=== PATIENT | male | born 1945 | race Caucasian/White ===

== ENCOUNTER 2019-03-02 02:31 | Emergency (ER) | payer MEDICARE, SELFPAY ==
[2019-03-02 02:24] VITALS: BP 130/62; PULSE 95; RESP 18; TEMP 36.9; O2SAT 92; BMI 37.5
--- NOTE | 2019-03-02 02:37 | ED_ITS ---
Entered by Kenyetta Sarmiento, acting as scribe for HPI - Fall General: Chief Complaint: Fall Stated Complaint: Fall - back pain Time Seen by Provider: 03/02/19 02:36 Source: patient Mode of arrival: EMS History of Present Illness: HPI Narrative: 73 yo m came to the er by ems fro fall and back pain. 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 Pt states that he waited 4 hours to call ems for help. Pt states that his legs just came out from underneath him. Pt states that he did not have any loc. MD complaint: fall Onset (ago): hour(s) (4 hours ago) Fall from: standing Fall witnessed: no Place fall occurred: home Loss of consciousness: None Symptoms prior to fall: none Severity: mild Associated symptoms-after fall: Reports no associated symptoms; Denies abdominal pain, chest pain, headache(s) or neck pain Review of Systems General: Reports: 10 or more systems reviewed and unremarkable except in HPI and below Const: Denies: fever Eyes: Denies: change in vision ENMT: Denies: throat pain Card: Denies: chest pain Resp: Denies: shortness of breath GI: Denies: abdominal pain : Denies: flank pain Musc: Denies: neck pain Skin/Breast: Denies: rash Neuro: Denies: headache Psych: Denies: anxiety Endo: Denies: excessive urination Mauri/Lymph: Denies: easy bruising All/Imm: Denies: hives PFSH ED PFSH: Statuses (acute, chronic, etc) shown below reflect problem list status as previously entered and may not be historically accurate Social History Smoking and tobacco status: never smoked Physical Exam Const: COMMON NORMALS: no apparent distress GENERAL APPEARANCE: cooperative and comfortable Eye: COMMON NORMALS: PERRL PUPIL: Yes PERRL Neck/C-Spine: COMMON NORMALS: full ROM Chest: COMMONS NORMALS: inspection of chest normal Resp: COMMON NORMALS: normal respiratory effort Cardio: COMMON NORMALS: regular rhythm RHYTHM: regular rhythm GI: COMMON NORMALS: normal to inspection, nondistended, normoactive bowel sounds : COMMON NORMALS: Yes no CVA tenderness BLADDER/KIDNEY EXAM: Yes no CVA tenderness Back/Pelvis: COMMON NORMALS: no CVA tenderness LUMBAR SPINE/LOWER BACK: Yes pain with ROM, Yes lumbar spinal tenderness Lumbar spinal tenderness location: L5, Yes paraspinal muscle spasm and Yes straight leg raise negative bilaterally Extremity: COMMON NORMALS: normal to inspection Psych: COMMON NORMALS: mental status grossly normal Skin: COMMON NORMALS: no rashes or lesions noted GENERAL SKIN EXAM: no rashes or lesions noted Course Vital Signs: Vital signs: Vital Signs Temperature 98.4 F 03/02/19 02:24 Pulse Rate 97 03/02/19 08:00 Respiratory Rate 20 H 03/02/19 07:58 Blood Pressure 118/74 03/02/19 08:00 Pulse Oximetry 94 03/02/19 08:00 - Fall Lab Data: Labs: Lab Results 03/02/19 03/02/19 Range/Units 02:57 02:57 WBC 12.9 H (4.0-10.0) 10^3/ uL RBC 5.51 H (4.1-5.3) 10^6/u L Hgb 15.6 (11.7-16.6) g/dL Hct 49.6 (42.0-52.0) % MCV 90.0 (80-94) fL MCH 28.3 (28.0-34.0) pg MCHC 31.5 (30.0-36.0) g/dL RDW 13.8 (12.1-15.1) % Plt Count 269 (130-400) 10^3/c mm MPV 9.9 (7.4-10.4) fL Neut % (Auto) 86.8 % Lymph % (Auto) 5.1 % [place] % (Auto) 7.5 % Eos % (Auto) 0.0 % Baso % (Auto) 0.2 % Neut # (Auto) 11.2 H (1.8-7.7) 10^3/u L Lymph # (Auto) 0.7 L (0.8-4.8) 10^3/u L [place] # (Auto) 1.0 H (0.2-0.9) 10^3/u L Eos # (Auto) 0.0 (0.0-0.8) 10^3/u L Baso # (Auto) 0.0 (0.0-0.1) 10^3/u L Nucleated RBC % (a uto) 0 % Nucleated RBCs # 0.0 /100WBC Sodium 132 L (136-145) mmol/L Potassium 4.0 (3.5-5.1) mmol/L Chloride 96 L (98-107) mmol/L Carbon Dioxide 21 L (22-29) mmol/L Anion Gap 19.0 (5-19) BUN 15 (8-23) mg/dL Creatinine 1.2 (0.7-1.2) mg/dL Glucose 412 H (74-106) mg/dL Calcium 10.7 H (8.8-10.2) mg/Dl Total Bilirubin 1.2 (0.15-1.2) mg/dL AST 50 H (0-40) U/L ALT 26 (0-41) U/L Alkaline Phosphata se 155 H (40-130) IU/L Total Protein 8.3 (6.6-8.7) g/dL Albumin 3.7 (3.5-5.2) g/dL Globulin 4.6 (1.3-4.6) g/dL Discharge Plan Discharge Patient Disposition: Home, Self-Care Clinical Impression: Fall as cause of accidental injury at home as place of occurrence, Spondyloarthropathy Condition: Stable Prescriptions: [place] 5-325 mg tablet 1 tab PO Q6H Qty: 12 RF: 0 Referrals: Enzo Grover DO [Primary Care Provider] - Discharge Diet: Usual diet Discharge Activity: Use walker/crutches as instructed Patient Instructions: Lumbar Radiculopathy (ED), Degenerative Disc Disease (ED) Activity Restrictions/Additional Instructions: Return for worsening symptoms despite treatment Discharge Date/Time: 03/02/19 09:15 Coding Level of Care Code ED Horologist for Chg Fwd Exam Problem Focused The documentation recorded by the Torsten garcia Stephanie Lyn, accurately reflects the service I personally performed and the decisions made by Kg fleming Jeremy John, DO Mar 02, 2019 02:31
--- NOTE | 2019-03-02 02:49 | CTR_ITS ---
PROCEDURE INFORMATION: Exam: CT Lumbar Spine Without Contrast Exam date and time: 03/02/2019 3:07 AM Age: 73 years old Clinical indication: Pain and injury or trauma; Fall; Initial encounter; Blunt trauma (contusions or hematomas); Low back pain TECHNIQUE: Imaging protocol: Computed tomography images of the lumbar spine without contrast. Total DLP: 2784.6 mGy-cm Radiation optimization: All CT scans at this facility use at least one of these dose optimization techniques: automated exposure control; mA and/or kV adjustment per patient size (includes targeted exams where dose is matched to clinical indication); or iterative reconstruction. COMPARISON: CR Lumbar Spine 2-3 views* [id number] 2017-04-06 15:50 FINDINGS: Vertebrae: Minimal levoconvex lumbar curvature. Minimal L4-5 anterolisthesis. Minimal L5-S1 retrolisthesis. Normal lumbar lordosis and vertebral body heights. Discs/Spinal canal/Neural foramina: Moderate L4-L5 facet arthropathy. Mild diffuse degenerative disc space loss with small disc bulge/protrusions causing up to mild foraminal and spinal stenosis greatest at L3-S1. Soft tissues: Unremarkable. CT/CT lumbar spine wo con* [id number] IMPRESSION: No acute findings. Radiation Dose CTDIVOL = (mGy): DLP = 2784.6 (mGy-cm)
[2019-03-02 03:07] LABS: Basophils % 0.2 %; Hematocrit 49.6 % (42.0-52.0); Hemoglobin 15.6 g/dL (11.7-16.6); Lymphocytes # 0.7 10^3/uL (0.8-4.8); Lymphocytes % 5.1 %; Mean Corpuscular HGB Conc 31.5 g/dL (30.0-36.0); Mean Corpuscular Hemoglobin 28.3 pg (28.0-34.0); Mean Platelet Volume 9.9 fL (7.4-10.4); Monocytes % 7.5 %; Neutrophils # 11.2 10^3/uL (1.8-7.7); Neutrophils % 86.8 %; Nucleated Red Blood Cells % 0 %; Platelet Count 269 10^3/cmm (130-400); Red Blood Count 5.51 10^6/uL (4.1-5.3); Red Cell Distribution Width 13.8 % (12.1-15.1); White Blood Count 12.9 10^3/uL (4.0-10.0)
[2019-03-02 03:15] LABS: Alanine Aminotransferase 26 U/L (0-41); Albumin Level 3.7 g/dL (3.5-5.2); Alkaline Phosphatase 155 IU/L (40-130); Blood Urea Nitrogen 15 mg/dL (8-23); Calcium 10.7 mg/Dl (8.8-10.2); Carbon Dioxide 21 mmol/L (22-29); Chloride 96 mmol/L (98-107); Globulin 4.6 g/dL (1.3-4.6); Glucose 412 mg/dL (74-106); Sodium 132 mmol/L (136-145); Total Bilirubin 1.2 mg/dL (0.15-1.2); Total Protein 8.3 g/dL (6.6-8.7)
[2019-03-02 03:18] LABS: Aspartate Amino Transferase 50 U/L (0-40)
[2019-03-02] MEDS: sodium chloride 0.9% 1,000 ML 999 ML IV (04:04)
[2019-03-02] MEDS: ondansetron 2 mg/ML SDV 2 mL 4 MG IVP (04:05)
[2019-03-02 04:06] VITALS: RESP 18; O2SAT 93
[2019-03-02] MEDS: morphine 4 mg/mL SDV 1 mL IV (04:06)
--- NOTE | 2019-03-02 06:02 | PC.NURSE ---
ambulation trial done per verbal order by ED physician. patient attempted to get out of bed but complained of back pain and is unable to get up. ed physician notified of attempt.
[2019-03-02 06:07] VITALS: RESP 18; O2SAT 95
[2019-03-02] MEDS: HYDROmorphone 1 mg/mL INJ 1 mL IVP (06:07)
--- NOTE | 2019-03-02 07:14 | PC.NURSE ---
report received from MELONIE Aranda
[2019-03-02 07:58] VITALS: PULSE 90; RESP 20; O2SAT 94
[2019-03-02 08:00] VITALS: BP 118/74; PULSE 97; O2SAT 94
--- NOTE | 2019-03-02 08:00 | PC.NURSE ---
pt up ambulating in [place] for road test. pt tolerated activity well
--- NOTE | 2019-03-02 10:09 | W.ED.FALL ---
HPI - Fall General: Chief Complaint: Fall Stated Complaint: Fall - back pain Time Seen by Provider: 03/02/19 02:36 Source: patient Mode of arrival: EMS History of Present Illness: Place fall occurred: home PFSH ED PFSH: Statuses (acute, chronic, etc) shown below reflect problem list status as previously entered and may not be historically accurate Social History Smoking and tobacco status: never smoked Course Vital Signs: Vital signs: Vital Signs Temperature 98.4 F 03/02/19 02:24 Pulse Rate 97 03/02/19 08:00 Respiratory Rate 20 H 03/02/19 07:58 Blood Pressure 118/74 03/02/19 08:00 Pulse Oximetry 94 03/02/19 08:00 MDM - Fall MDM Narrative: Medical decision making narrative: Dr. Saul left without signing his prescription for the patient. I signed a prescription with Dr. Saul's name eliminated with mine added but the local pharmacy would not take this prescription. I have written a new prescription for [place] 5/325, #20, 1 p.o. every 4-6 hours as needed for pain. I did briefly see and examine the patient while he was here in the ER prior to discharge and he was stable for discharge. His physical exam was unremarkable and the same as noted by Dr. Saul. He was stable on his walker with no sign of impairment. This addendum is for clarification with his [place] prescription. Lab Data: Labs: Lab Results 03/02/19 03/02/19 Range/Units 02:57 02:57 WBC 12.9 H (4.0-10.0) 10^3/ uL RBC 5.51 H (4.1-5.3) 10^6/u L Hgb 15.6 (11.7-16.6) g/dL Hct 49.6 (42.0-52.0) % MCV 90.0 (80-94) fL MCH 28.3 (28.0-34.0) pg MCHC 31.5 (30.0-36.0) g/dL RDW 13.8 (12.1-15.1) % Plt Count 269 (130-400) 10^3/c mm MPV 9.9 (7.4-10.4) fL Neut % (Auto) 86.8 % Lymph % (Auto) 5.1 % [place] % (Auto) 7.5 % Eos % (Auto) 0.0 % Baso % (Auto) 0.2 % Neut # (Auto) 11.2 H (1.8-7.7) 10^3/u L Lymph # (Auto) 0.7 L (0.8-4.8) 10^3/u L [place] # (Auto) 1.0 H (0.2-0.9) 10^3/u L Eos # (Auto) 0.0 (0.0-0.8) 10^3/u L Baso # (Auto) 0.0 (0.0-0.1) 10^3/u L Nucleated RBC % (a uto) 0 % Nucleated RBCs # 0.0 /100WBC Sodium 132 L (136-145) mmol/L Potassium 4.0 (3.5-5.1) mmol/L Chloride 96 L (98-107) mmol/L Carbon Dioxide 21 L (22-29) mmol/L Anion Gap 19.0 (5-19) BUN 15 (8-23) mg/dL Creatinine 1.2 (0.7-1.2) mg/dL Glucose 412 H (74-106) mg/dL Calcium 10.7 H (8.8-10.2) mg/Dl Total Bilirubin 1.2 (0.15-1.2) mg/dL AST 50 H (0-40) U/L ALT 26 (0-41) U/L Alkaline Phosphata se 155 H (40-130) IU/L Total Protein 8.3 (6.6-8.7) g/dL Albumin 3.7 (3.5-5.2) g/dL Globulin 4.6 (1.3-4.6) g/dL Discharge Plan Discharge Patient Disposition: Home, Self-Care Clinical Impression: Fall as cause of accidental injury at home as place of occurrence, Spondyloarthropathy Condition: Stable Prescriptions: [place] 5-325 mg tablet 1 tab PO Q6H Qty: 12 RF: 0 Referrals: Enzo Grover DO [Primary Care Provider] - Discharge Diet: Usual diet Discharge Activity: Use walker/crutches as instructed Patient Instructions: Lumbar Radiculopathy (ED), Degenerative Disc Disease (ED) Activity Restrictions/Additional Instructions: Return for worsening symptoms despite treatment Discharge Date/Time: 03/02/19 09:15 Coding Level of Care Code ED Armature Varnisher for Rebeka Chowdhury
== END 2019-03-02 09:15 | disposition home or self-care (01) ==
PROVIDERS: Emergency Provider Emergency Medicine; Family Provider Internal Medicine; PCP Internal Medicine
DX: M47.819 Spondylosis without myelopathy or radiculopathy, site unspecified (principal)
CPT/HCPCS: 72131; 80053; 85025; 96360; 96374; 99281; J1170; J2270; J2405; J7030

== ENCOUNTER 2019-03-09 21:48 | Inpatient (IN) | payer MEDICARE, SELFPAY ==
[2019-03-09 21:51] VITALS: PULSE 124; RESP 24; TEMP 37.3; O2SAT 97; BMI 38.6
--- NOTE | 2019-03-09 22:04 | ED_ITS ---
Entered by Verena Burr, acting as scribe for Gonzalo Saul DO Mar 09, 2019 21:48 HPI - SOB/Dyspnea General: Chief Complaint: Shortness of Breath/Dyspnea Stated Complaint: Falling/generalized weakness Time Seen by Provider: 03/09/19 22:05 Source: patient Mode of arrival: EMS History of Present Illness: HPI Narrative: 73 y/o male presents to the ED with complaint of SOB. He has had increased weakness and states he had been unable to get up off and on for a month. MD elicited complaint: shortness of breath Timing: intermittent Associated symptoms: Reports orthopnea; Deny abdominal pain, chest pain, dizziness, fever(s), nausea, palpitations or vomiting Review of Systems Const: Denies: fever or chills Eyes: Denies: change in vision or blurry vision ENMT: Denies: painful swallowing, swelling of lips/tongue, bleeding gums, dental pain, Change in hearing, nose bleeds, post nasal drip or facial/sinus pain Card: Reports: edema, swelling of feet/ankles (+4 edema), shortness of breath on exertion and shortness of breath when lying down; Denies: chest pain, palpitations or irregular heart rhythm Resp: Reports: shortness of breath; Denies: productive cough, non-productive cough or wheezing GI: Denies: abdominal pain, nausea, vomiting, rectal pain, blood in stool or black tarry stool : Reports: urinary urgency; Denies: difficulty urinating, painful urination, urinary frequency or blood in urine Musc: Denies: neck pain, back pain, redness or joint warmth Skin/Breast: Denies: rash, itching or redness Neuro: Reports: difficulty walking, confusion (altered) and difficulty communicating thoughts (slow to respond); Denies: headache, dizziness, vertigo or seizure-like activity Psych: Denies: anxiety, visual hallucinations or auditory hallucinations PFSH ED PFSH: Statuses (acute, chronic, etc) shown below reflect problem list status as previously entered and may not be historically accurate Medical History (Updated 03/10/19 @ 17:09 by Rolo Turner MD) Acute on chronic diastolic heart failure (Acute) 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) Dyslipidemia (high LDL; low HDL) (Acute) Surgical History (Updated 01/12/20 @ 16:38 by Rolo Turner MD) History of open heart surgery (Acute) 20 years ago in [place] Social History Smoking and tobacco status: never smoked Physical Exam Const: COMMON NORMALS: negative for oriented x3 GENERAL APPEARANCE: not well developed ORIENTATION/CONSCIOUSNESS: Yes awake HENMT: COMMON NORMALS: normocephalic, external ears normal, external nose normal and moist oral mucous membranes HEAD & SCALP: normocephalic; no scalp tenderness FACE & SINUS: normal facial exam NOSE: external nose normal and no nasal discharge EXTERNAL EAR: Yes external ears normal MOUTH: tongue normal Eye: COMMON NORMALS: PERRL, EOMs intact bilaterally and conjunctivae normal EYELID: eyelids normal CONJUNCTIVA: Yes conjunctivae normal PUPIL: Yes PERRL Neck/C-Spine: GENERAL: No tracheal deviation Chest: COMMONS NORMALS: inspection of chest normal CHEST: Yes symmetrical chest wall rise and No tenderness Resp: COMMON NORMALS: clear to auscultation bilaterally EFFORT & INSPECTION: Yes able to speak in complete sentences, No tachypneic, No respiratory distress, No retractions, No uses accessory muscles and No tracheal deviation AUSCULTATION: clear to auscultation bilaterally, no rhonchi, no wheezes and diminished lung sounds bilateral Cardio: COMMON NORMALS: regular rate and regular rhythm RATE: regular rate RHYTHM: regular rhythm HEART SOUNDS: no murmurs PERIPHERAL PULSES: radial pulses present GI: INSPECTION: No abdominal distension AUSCULTATION: No hyperactive bowel sounds and No hypoactive bowel sounds PALPATION: No tender, No guarding and No rigid PERCUSSION: no dullness to percussion and no tympanic to percussion : COMMON NORMALS: Yes no CVA tenderness BLADDER/KIDNEY EXAM: Yes no CVA tenderness Back/Pelvis: COMMON NORMALS: no CVA tenderness PELVIS: Yes no pain with anterior-posterior compression and Yes no pain with lateral compression Extremity: RIGHT LOWER EXTREMITY: Yes lower leg (+4 edema) LEFT LOWER EXTREMITY: Yes lower leg (+4 edema) Neuro: COMMON NORMALS: negative for oriented x3 Psych: COMMON NORMALS: mental status grossly normal and speech normal SPEECH: Yes normal speech Skin: COMMON NORMALS: no rashes or lesions noted GENERAL SKIN EXAM: no rashes or lesions noted Course ED course: Patient with confusion, pulmonary edema. He significantly hyperglycemic. He has some significant mental status change. He may have a pneumonia as well, with a temperature of 99.1, although his chest x-ray appears to be more of a pulmonary edema. He started diuresis in the ER. He will be admitted. Vital Signs: Vital signs: Vital Signs Temperature 99.7 F H 03/10/19 20:28 Pulse Rate 83 03/10/19 21:20 Respiratory Rate 32 H 03/10/19 19:46 Blood Pressure 164/92 03/10/19 19:46 Pulse Oximetry 93 03/10/19 21:20 MDM - SOB/Dyspnea Lab Data: Labs: Lab Results 03/09/19 03/09/19 03/09/19 Range/Units 22:38 22:40 22:50 WBC 12.8 H (4.0-10.0) 10^3/ uL RBC 5.52 H (4.1-5.3) 10^6/u L Hgb 15.5 (11.7-16.6) g/dL Hct 49.2 (42.0-52.0) % MCV 89.1 (80-94) fL MCH 28.1 (28.0-34.0) pg MCHC 31.5 (30.0-36.0) g/dL RDW 14.1 (12.1-15.1) % Plt Count 289 (130-400) 10^3/c mm MPV 11.0 H (7.4-10.4) fL Neut % (Auto) 88.4 % Lymph % (Auto) 4.4 % [place] % (Auto) 6.2 % Eos % (Auto) 0.0 % Baso % (Auto) 0.1 % Neut # (Auto) 11.3 H (1.8-7.7) 10^3/u L Lymph # (Auto) 0.6 L (0.8-4.8) 10^3/u L [place] # (Auto) 0.8 (0.2-0.9) 10^3/u L Eos # (Auto) 0.0 (0.0-0.8) 10^3/u L Baso # (Auto) 0.0 (0.0-0.1) 10^3/u L Nucleated RBC % (a uto) 0 % Nucleated RBCs # 0.0 /100WBC Specimen Type Arterial Sample Site Radial, left ABG pH 7.52 H (7.35-7.45) ABG pCO2 38.2 (35-45) mmHg ABG pO2 67.1 L (80.0-100.0) mmH g ABG HCO3 31.3 H (22-26) mmol/L ABG Base Excess 7.9 H (-2.0-2.0) mmol/ L Diaz Test Pos Hematocrit 48.1 (42-52) % Hgb O2 Saturation 94.0 L (95-100) % Carboxyhemoglobin 0.9 (0.4-20.1) %THgb Methemoglobin 0.3 L (0.4-1.5) % Total Hemoglobin 15.7 (14-18) g/dL O2 Liters/Min 5.0 % Riveting Machine Operator Tape Control ID ellpe Sodium (136-145) mmol/L Potassium (3.5-5.1) mmol/L Chloride (98-107) mmol/L Carbon Dioxide (22-29) mmol/L Anion Gap (5-19) BUN (8-23) mg/dL Creatinine (0.7-1.2) mg/dL Glucose (74-106) mg/dL POC Glucose 501 (70-110) mg/dL Lactate (0.5-2.2) mmol/L Calcium (8.8-10.2) mg/Dl Total Bilirubin (0.15-1.2) mg/dL AST (0-40) U/L ALT (0-41) U/L Alkaline Phosphata se (40-130) IU/L Ammonia (16-60) umol/L Troponin T Baselin e (0-15) ng/mL Troponin T 120 Min wiyot (0-15) ng/mL Delta Troponin T (0-10) ABS# NT-Pro-B Natriuret Pep (0-450) pg/mL Total Protein (6.6-8.7) g/dL Albumin (3.5-5.2) g/dL Globulin (1.3-4.6) g/dL Urine Color (Yellow) Urine Appearance (CLEAR) Urine pH (5-7) Ur Specific Gravit y (1.005-1.030) Urine Protein (Negative) Urine Glucose (UA) (Normal) Urine Ketones (Negative) Urine Occult Blood (Negative) Urine Nitrate (Negative) Urine Bilirubin (NEGATIVE) Urine Urobilinogen (Negative) mg/dL Ur Leukocyte Kavya ase (Negative) Urine RBC (0-2) /hpf Urine WBC (0-5) /hpf Ur Squamous Epith Cells (0-5) Urine Bacteria (NONE) Serum Ketones (Negative) Influenza Type A A g (Negative) POC Influenza B Ag (Negative) 03/09/19 03/09/19 03/09/19 Range/Units 22:50 22:50 22:50 WBC (4.0-10.0) 10^3/ uL RBC (4.1-5.3) 10^6/u L Hgb (11.7-16.6) g/dL Hct (42.0-52.0) % MCV (80-94) fL MCH (28.0-34.0) pg MCHC (30.0-36.0) g/dL RDW (12.1-15.1) % Plt Count (130-400) 10^3/c mm MPV (7.4-10.4) fL Neut % (Auto) % Lymph % (Auto) % [place] % (Auto) % Eos % (Auto) % Baso % (Auto) % Neut # (Auto) (1.8-7.7) 10^3/u L Lymph # (Auto) (0.8-4.8) 10^3/u L [place] # (Auto) (0.2-0.9) 10^3/u L Eos # (Auto) (0.0-0.8) 10^3/u L Baso # (Auto) (0.0-0.1) 10^3/u L Nucleated RBC % (a uto) % Nucleated RBCs # /100WBC Specimen Type Sample Site ABG pH (7.35-7.45) ABG pCO2 (35-45) mmHg ABG pO2 (80.0-100.0) mmH g ABG HCO3 (22-26) mmol/L ABG Base Excess (-2.0-2.0) mmol/ L Diaz Test Hematocrit (42-52) % Hgb O2 Saturation (95-100) % Carboxyhemoglobin (0.4-20.1) %THgb Methemoglobin (0.4-1.5) % Total Hemoglobin (14-18) g/dL O2 Liters/Min % Riveting Machine Operator Tape Control ID Sodium (136-145) mmol/L Potassium (3.5-5.1) mmol/L Chloride (98-107) mmol/L Carbon Dioxide (22-29) mmol/L Anion Gap (5-19) BUN (8-23) mg/dL Creatinine (0.7-1.2) mg/dL Glucose (74-106) mg/dL POC Glucose (70-110) mg/dL Lactate 2.2 (0.5-2.2) mmol/L Calcium (8.8-10.2) mg/Dl Total Bilirubin (0.15-1.2) mg/dL AST (0-40) U/L ALT (0-41) U/L Alkaline Phosphata se (40-130) IU/L Ammonia 46 (16-60) umol/L Troponin T Baselin e (0-15) ng/mL Troponin T 120 Min wiyot (0-15) ng/mL Delta Troponin T (0-10) ABS# NT-Pro-B Natriuret Pep 2370 H (0-450) pg/mL Total Protein (6.6-8.7) g/dL Albumin (3.5-5.2) g/dL Globulin (1.3-4.6) g/dL Urine Color (Yellow) Urine Appearance (CLEAR) Urine pH (5-7) Ur Specific Gravit y (1.005-1.030) Urine Protein (Negative) Urine Glucose (UA) (Normal) Urine Ketones (Negative) Urine Occult Blood (Negative) Urine Nitrate (Negative) Urine Bilirubin (NEGATIVE) Urine Urobilinogen (Negative) mg/dL Ur Leukocyte Kavya ase (Negative) Urine RBC (0-2) /hpf Urine WBC (0-5) /hpf Ur Squamous Epith Cells (0-5) Urine Bacteria (NONE) Serum Ketones (Negative) Influenza Type A A g (Negative) POC Influenza B Ag (Negative) 03/09/19 03/09/19 03/09/19 Range/Units 22:50 22:50 22:50 WBC (4.0-10.0) 10^3/ uL RBC (4.1-5.3) 10^6/u L Hgb (11.7-16.6) g/dL Hct (42.0-52.0) % MCV (80-94) fL MCH (28.0-34.0) pg MCHC (30.0-36.0) g/dL RDW (12.1-15.1) % Plt Count (130-400) 10^3/c mm MPV (7.4-10.4) fL Neut % (Auto) % Lymph % (Auto) % [place] % (Auto) % Eos % (Auto) % Baso % (Auto) % Neut # (Auto) (1.8-7.7) 10^3/u L Lymph # (Auto) (0.8-4.8) 10^3/u L [place] # (Auto) (0.2-0.9) 10^3/u L Eos # (Auto) (0.0-0.8) 10^3/u L Baso # (Auto) (0.0-0.1) 10^3/u L Nucleated RBC % (a uto) % Nucleated RBCs # /100WBC Specimen Type Sample Site ABG pH (7.35-7.45) ABG pCO2 (35-45) mmHg ABG pO2 (80.0-100.0) mmH g ABG HCO3 (22-26) mmol/L ABG Base Excess (-2.0-2.0) mmol/ L Diaz Test Hematocrit (42-52) % Hgb O2 Saturation (95-100) % Carboxyhemoglobin (0.4-20.1) %THgb Methemoglobin (0.4-1.5) % Total Hemoglobin (14-18) g/dL O2 Liters/Min % Riveting Machine Operator Tape Control ID Sodium 132 L (136-145) mmol/L Potassium 3.4 L (3.5-5.1) mmol/L Chloride 89 L (98-107) mmol/L Carbon Dioxide 24 (22-29) mmol/L Anion Gap 22.4 H (5-19) BUN 20 (8-23) mg/dL Creatinine 1.6 H (0.7-1.2) mg/dL Glucose 538 H* (74-106) mg/dL POC Glucose (70-110) mg/dL Lactate (0.5-2.2) mmol/L Calcium 12.0 H (8.8-10.2) mg/Dl Total Bilirubin 0.9 (0.15-1.2) mg/dL AST 37 (0-40) U/L ALT 43 H (0-41) U/L Alkaline Phosphata se 147 H (40-130) IU/L Ammonia (16-60) umol/L Troponin T Baselin e 227 H* (0-15) ng/mL Troponin T 120 Min wiyot (0-15) ng/mL Delta Troponin T (0-10) ABS# NT-Pro-B Natriuret Pep (0-450) pg/mL Total Protein 8.3 (6.6-8.7) g/dL Albumin 2.7 L (3.5-5.2) g/dL Globulin 5.6 H (1.3-4.6) g/dL Urine Color (Yellow) Urine Appearance (CLEAR) Urine pH (5-7) Ur Specific Gravit y (1.005-1.030) Urine Protein (Negative) Urine Glucose (UA) (Normal) Urine Ketones (Negative) Urine Occult Blood (Negative) Urine Nitrate (Negative) Urine Bilirubin (NEGATIVE) Urine Urobilinogen (Negative) mg/dL Ur Leukocyte Kavya ase (Negative) Urine RBC (0-2) /hpf Urine WBC (0-5) /hpf Ur Squamous Epith Cells (0-5) Urine Bacteria (NONE) Serum Ketones Negative (Negative) Influenza Type A A g (Negative) POC Influenza B Ag (Negative) 03/10/19 03/10/19 03/10/19 Range/Units 00:12 00:56 01:28 WBC (4.0-10.0) 10^3/ uL RBC (4.1-5.3) 10^6/u L Hgb (11.7-16.6) g/dL Hct (42.0-52.0) % MCV (80-94) fL MCH (28.0-34.0) pg MCHC (30.0-36.0) g/dL RDW (12.1-15.1) % Plt Count (130-400) 10^3/c mm MPV (7.4-10.4) fL Neut % (Auto) % Lymph % (Auto) % [place] % (Auto) % Eos % (Auto) % Baso % (Auto) % Neut # (Auto) (1.8-7.7) 10^3/u L Lymph # (Auto) (0.8-4.8) 10^3/u L [place] # (Auto) (0.2-0.9) 10^3/u L Eos # (Auto) (0.0-0.8) 10^3/u L Baso # (Auto) (0.0-0.1) 10^3/u L Nucleated RBC % (a uto) % Nucleated RBCs # /100WBC Specimen Type Sample Site ABG pH (7.35-7.45) ABG pCO2 (35-45) mmHg ABG pO2 (80.0-100.0) mmH g ABG HCO3 (22-26) mmol/L ABG Base Excess (-2.0-2.0) mmol/ L Diaz Test Hematocrit (42-52) % Hgb O2 Saturation (95-100) % Carboxyhemoglobin (0.4-20.1) %THgb Methemoglobin (0.4-1.5) % Total Hemoglobin (14-18) g/dL O2 Liters/Min % Riveting Machine Operator Tape Control ID Sodium (136-145) mmol/L Potassium (3.5-5.1) mmol/L Chloride (98-107) mmol/L Carbon Dioxide (22-29) mmol/L Anion Gap (5-19) BUN (8-23) mg/dL Creatinine (0.7-1.2) mg/dL Glucose (74-106) mg/dL POC Glucose (70-110) mg/dL Lactate (0.5-2.2) mmol/L Calcium (8.8-10.2) mg/Dl Total Bilirubin (0.15-1.2) mg/dL AST (0-40) U/L ALT (0-41) U/L Alkaline Phosphata se (40-130) IU/L Ammonia (16-60) umol/L Troponin T Baselin e (0-15) ng/mL Troponin T 120 Min wiyot 244.20 H (0-15) ng/mL Delta Troponin T 17.20 H* (0-10) ABS# NT-Pro-B Natriuret Pep (0-450) pg/mL Total Protein (6.6-8.7) g/dL Albumin (3.5-5.2) g/dL Globulin (1.3-4.6) g/dL Urine Color Red (Yellow) Urine Appearance Cloudy (CLEAR) Urine pH 5 (5-7) Ur Specific Gravit y 1.010 (1.005-1.030) Urine Protein 1+ H (Negative) Urine Glucose (UA) 4+ H (Normal) Urine Ketones Negative (Negative) Urine Occult Blood 3+ H (Negative) Urine Nitrate Negative (Negative) Urine Bilirubin Neg (NEGATIVE) Urine Urobilinogen Norm (Negative) mg/dL Ur Leukocyte Kavya ase 1+ H (Negative) Urine RBC >100 H (0-2) /hpf Urine WBC 25-40 H (0-5) /hpf Ur Squamous Epith Cells 0-4 H (0-5) Urine Bacteria 1+ H (NONE) Serum Ketones (Negative) Influenza Type A A g Negative (Negative) POC Influenza B Ag Negative (Negative) 03/10/19 Range/Units 02:11 WBC (4.0-10.0) 10^3/ uL RBC (4.1-5.3) 10^6/u L Hgb (11.7-16.6) g/dL Hct (42.0-52.0) % MCV (80-94) fL MCH (28.0-34.0) pg MCHC (30.0-36.0) g/dL RDW (12.1-15.1) % Plt Count (130-400) 10^3/c mm MPV (7.4-10.4) fL Neut % (Auto) % Lymph % (Auto) % [place] % (Auto) % Eos % (Auto) % Baso % (Auto) % Neut # (Auto) (1.8-7.7) 10^3/u L Lymph # (Auto) (0.8-4.8) 10^3/u L [place] # (Auto) (0.2-0.9) 10^3/u L Eos # (Auto) (0.0-0.8) 10^3/u L Baso # (Auto) (0.0-0.1) 10^3/u L Nucleated RBC % (a uto) % Nucleated RBCs # /100WBC Specimen Type Sample Site ABG pH (7.35-7.45) ABG pCO2 (35-45) mmHg ABG pO2 (80.0-100.0) mmH g ABG HCO3 (22-26) mmol/L ABG Base Excess (-2.0-2.0) mmol/ L Diaz Test Hematocrit (42-52) % Hgb O2 Saturation (95-100) % Carboxyhemoglobin (0.4-20.1) %THgb Methemoglobin (0.4-1.5) % Total Hemoglobin (14-18) g/dL O2 Liters/Min % Riveting Machine Operator Tape Control ID Sodium (136-145) mmol/L Potassium (3.5-5.1) mmol/L Chloride (98-107) mmol/L Carbon Dioxide (22-29) mmol/L Anion Gap (5-19) BUN (8-23) mg/dL Creatinine (0.7-1.2) mg/dL Glucose (74-106) mg/dL POC Glucose 411 (70-110) mg/dL Lactate (0.5-2.2) mmol/L Calcium (8.8-10.2) mg/Dl Total Bilirubin (0.15-1.2) mg/dL AST (0-40) U/L ALT (0-41) U/L Alkaline Phosphata se (40-130) IU/L Ammonia (16-60) umol/L Troponin T Baselin e (0-15) ng/mL Troponin T 120 Min wiyot (0-15) ng/mL Delta Troponin T (0-10) ABS# NT-Pro-B Natriuret Pep (0-450) pg/mL Total Protein (6.6-8.7) g/dL Albumin (3.5-5.2) g/dL Globulin (1.3-4.6) g/dL Urine Color (Yellow) Urine Appearance (CLEAR) Urine pH (5-7) Ur Specific Gravit y (1.005-1.030) Urine Protein (Negative) Urine Glucose (UA) (Normal) Urine Ketones (Negative) Urine Occult Blood (Negative) Urine Nitrate (Negative) Urine Bilirubin (NEGATIVE) Urine Urobilinogen (Negative) mg/dL Ur Leukocyte Kavya ase (Negative) Urine RBC (0-2) /hpf Urine WBC (0-5) /hpf Ur Squamous Epith Cells (0-5) Urine Bacteria (NONE) Serum Ketones (Negative) Influenza Type A A g (Negative) POC Influenza B Ag (Negative) Discharge Plan Discharge Patient Disposition: Admitted As Inpatient Admit Provider: Ritu Anne Condition: Stable Interventions: ED Discharge Assessment Last Done: 03/10/19 04:47 Discharge Date/Time: 03/10/19 04:48 Coding Level of Care Code ED Programmer Business for Chg Fwguillaume The documentation recorded by the Leno garcia Ashley, accurately reflects the service I personally performed and the decisions made by Kg fleming Jeremy John, DO Mar 09, 2019 21:48
[2019-03-09 22:18] VITALS: BP 177/79; PULSE 107; RESP 25; O2SAT 94; O2SAT 97
--- NOTE | 2019-03-09 22:18 | XRR_ITS ---
PROCEDURE INFORMATION: Exam: XR Chest, 1 View Exam date and time: 03/09/2019 10:56 PM Age: 73 years old Clinical indication: Shortness of breath; Additional info: SOB TECHNIQUE: Imaging protocol: XR of the chest Views: 1 view. COMPARISON: CR Chest 2 views* [id number] 12/18/2016 1:01 PM FINDINGS: Lungs: There is mild increased peribronchial markings and mild prominence of the pulmonary vasculature is some linear opacities present in the lower hemithoraces, findings suggesting pulmonary edema. Pleural space: Unremarkable. No pleural effusion. No pneumothorax. Heart/Mediastinum: Unremarkable. No cardiomegaly. Bones/joints: Status post median sternotomy. XR/XR chest 1V portable [id number] IMPRESSION: Findings suggesting pulmonary edema.
--- NOTE | 2019-03-09 22:18 | CTR_ITS ---
PROCEDURE INFORMATION: Exam: CT Head Without Contrast Exam date and time: 03/09/2019 10:30 PM Age: 73 years old Clinical indication: Altered mental status/memory loss; Confusion or disorientation; Additional info: AMS TECHNIQUE: Imaging protocol: Computed tomography of the head without contrast. Total DLP: 1022.87 mGy-cm Radiation optimization: All CT scans at this facility use at least one of these dose optimization techniques: automated exposure control; mA and/or kV adjustment per patient size (includes targeted exams where dose is matched to clinical indication); or iterative reconstruction. COMPARISON: No relevant prior studies available. FINDINGS: Brain: There is mild diffuse cerebral atrophy. Patchy areas of hypoattenuation are seen in the deep white matter of the cerebral hemispheres bilaterally compatible with deep white matter microvascular disease. Ventricles: Normal. No ventriculomegaly. Bones/joints: Unremarkable. No acute fracture. Sinuses: There is mild mucosal thickening seen within the ethmoidal sinuses bilaterally and the right maxillary sinus. Mastoid air cells: Visualized mastoid air cells are well aerated. Soft tissues: Unremarkable. CT/CT head wo con* [id number] IMPRESSION: There are no acute intracranial Radiation Dose CTDIVOL = (mGy): DLP = 1022.87 (mGy-cm)
--- NOTE | 2019-03-09 22:20 | ECG_ITS ---
Measurements Intervals [place] Rate: 105 P: 6 VT: 140 QRS: -14 QRSD: 118 T: 36 QT: 275 QTc: 363 SINUS TACHYCARDIA SEPTAL MYOCARDIAL INFARCTION , PROBABLY OLD [40+ ms Q WAVE IN V1/V2] Compared to ECG 12/18/2016 16:55:45 Myocardial infarct finding now present Sinus rhythm no longer present Ventricular premature complex(es) no longer present T-wave abnormality no longer present Electronically Signed On 03-10-2019 19:16:43 BOX INSPECTOR by Rolo Turner M.D. [email or web address]
[2019-03-09 22:42] LABS: Glucose Point of Care 501 mg/dL (70-110)
[2019-03-09 22:46] LABS: ABG PCO2 38.2 mmHg (35-45); ABG PH Result 7.52 (7.35-7.45); Arterial Blood Gas Hematocrit 48.1 % (42-52); Base Excess ABG 7.9 mmol/L (-2.0-2.0); Blood Gas Allen Test Pos; Blood Gas Sample Site Radial, left; Blood Gas Sample Type Arterial; Carboxyhemoglobin 0.9 %THgb (0.4-20.1); HCO3 ABG 31.3 mmol/L (22-26); Methemoglobin 0.3 % (0.4-1.5); PO2 ABG 67.1 mmHg (80.0-100.0); Total Hemoglobin 15.7 g/dL (14-18)
[2019-03-09] MEDS: FUROsemide 10 mg/mL SDV 10mL 80 MG IVP (22:55)
[2019-03-09 22:59] LABS: Basophils % 0.1 %; Hematocrit 49.2 % (42.0-52.0); Hemoglobin 15.5 g/dL (11.7-16.6); Lymphocytes # 0.6 10^3/uL (0.8-4.8); Lymphocytes % 4.4 %; Mean Corpuscular HGB Conc 31.5 g/dL (30.0-36.0); Mean Corpuscular Hemoglobin 28.1 pg (28.0-34.0); Mean Corpuscular Volume 89.1 fL (80-94); Monocytes # 0.8 10^3/uL (0.2-0.9); Monocytes % 6.2 %; Neutrophils # 11.3 10^3/uL (1.8-7.7); Neutrophils % 88.4 %; Nucleated Red Blood Cells % 0 %; Platelet Count 289 10^3/cmm (130-400); Red Blood Count 5.52 10^6/uL (4.1-5.3); Red Cell Distribution Width 14.1 % (12.1-15.1); White Blood Count 12.8 10^3/uL (4.0-10.0)
[2019-03-09 23:16] LABS: Ammonia 46 umol/L (16-60); Lactate (Lactic Acid level) 2.2 mmol/L (0.5-2.2)
[2019-03-09 23:26] LABS: NT Pro B Type Natriuretic Pept 2370 pg/mL (0-450)
[2019-03-09 23:32] LABS: Troponin(5th) Baseline 227 ng/mL (0-15)
[2019-03-09 23:56] VITALS: PULSE 101; O2SAT 95
[2019-03-10] VITALS (61 sets, daily range): BP systolic 126–174; BP diastolic 71–95; PULSE 80–118; RESP 13–32; TEMP 37–38.4; O2SAT 93–100
[2019-03-10 00:11] LABS: Alanine Aminotransferase 43 U/L (0-41); Albumin Level 2.7 g/dL (3.5-5.2); Alkaline Phosphatase 147 IU/L (40-130); Anion Gap 22.4 (5-19); Aspartate Amino Transferase 37 U/L (0-40); Blood Urea Nitrogen 20 mg/dL (8-23); Carbon Dioxide 24 mmol/L (22-29); Chloride 89 mmol/L (98-107); Globulin 5.6 g/dL (1.3-4.6); Potassium 3.4 mmol/L (3.5-5.1); Sodium 132 mmol/L (136-145); Total Bilirubin 0.9 mg/dL (0.15-1.2); Total Protein 8.3 g/dL (6.6-8.7)
--- NOTE | 2019-03-10 00:20 | ECG_ITS ---
Measurements Intervals [place] Rate: 100 P: MS: 0 QRS: 3 QRSD: 119 T: 34 QT: 288 QTc: 373 Sinus tachycardia POSSIBLE LATERAL MYOCARDIAL INFARCTION [30 ms Q WAVE IN I/aVL/V5/V6], PROBABLY OLD Diffuse nonspecific T wave changes ABNORMAL RHYTHM ECG INTERPRETATION BASED ON A DEFAULT AGE OF 40 YEARS Compared to ECG 12/18/2016 16:55:45 Myocardial infarct finding now present Sinus rhythm no longer present Ventricular premature complex(es) no longer present Electronically Signed On 03-10-2019 19:23:05 PROBE OPERATOR by Rolo Turner M.D. [id number]
[2019-03-10 00:28] LABS: Glucose 538 mg/dL (74-106)
[2019-03-10] MEDS: insulin regular-human 100 units/1 mL 10 UNIT IVP (01:22)
[2019-03-10 01:42] LABS: Add Urine Culture? Yes; Add Urine Microscopic? YES; Bacteria Urine 1+; Bilirubin Urine Neg (NEGATIVE); Blood Urine 3+ (Negative); Glucose Urine UA 4+ (Normal); Ketones Urine Negative (Negative); Leukocyte Esterase Urine 1+ (Negative); Nitrate Urine Negative (Negative); Protein Urine 1+ (Negative); RBC Urine >100 /hpf (0-2); Squamous Epithelial Cell Urine 0-4 (0-5); Urine Appearance Cloudy (CLEAR); Urine Color Red (Yellow); Urobilinogen Urine Norm (Negative); WBC Urine 25-40 /hpf (0-5); pH Urine 5 (5-7)
[2019-03-10 02:00] LABS: Influenza A by IFA Negative (Negative); Influenza B by IFA Negative (Negative)
[2019-03-10 02:17] LABS: Glucose Point of Care 411 mg/dL (70-110)
--- NOTE | 2019-03-10 03:31 | PM.HP ---
Providers/Chief Complaint Primary Care Provider: Enzo Grover DO Chief Complaint: CHF EXACERBATION, PROBABLE NON STEMI, AMS History of Present Illness Yunior Stewart is a 73 year old male w/ PMH of HTN, daibetes presents w/ altered mental status. Patient unable to give any history so history obtained from EMR. No family members at bedside at time of encounter. As per EMR and ED - patient presented w/ confusion, unkept covered in urine. Also noted to be hypoxemic in the ED and initially complained of SOB. Unable to give any other history and confused during encounter. Review of Systems Narrative: unable to obtain refer to [facility] Medications/Allergies Home Medications Medication Instructions Recorded Confirmed Last Taken Type amlodipine [Norvasc] 5 mg PO DAILY 03/09/19 03/09/19 Unknown History ascorbic acid (vitamin C) [Vitamin 1 g PO DAILY 03/09/19 03/09/19 Unknown History C] aspirin 81 mg PO DAILY 03/09/19 03/09/19 Unknown History atorvastatin [Lipitor] 80 mg PO DAILY 03/09/19 03/09/19 Unknown History furosemide [Lasix] 40 mg PO DAILY 03/09/19 03/09/19 Unknown History methenamine hippurate [Hiprex] 1 g PO BID 03/09/19 03/09/19 Unknown History metoprolol tartrate 25 mg PO BID 03/09/19 03/09/19 Unknown History tamsulosin [Flomax] 0.4 mg PO BID 03/09/19 03/09/19 Unknown History Allergies Allergy/AdvReac Type Severity Reaction Status Date / Time No Known Allergies Allergy Verified 03/09/19 21:59 PFSH Acute PFSH: Statuses (acute, chronic, etc) shown below reflect problem list status as previously entered and may not be historically accurate Social History Smoking and tobacco status: never smoked Vitals/I&O/Wt Last Vital Signs Temp 99.1 F 03/09/19 21:51 Pulse 99 03/10/19 03:02 Resp 24 H 03/10/19 03:02 BP 162/84 03/10/19 03:02 Pulse Ox 96 03/10/19 03:02 Weight last 48 hrs Weight 140.16 kg Physical Exam Const: COMMON NORMALS: no apparent distress OTHER: unkept disheveled HENMT: COMMON NORMALS: normocephalic HEAD & SCALP: normocephalic Eye: COMMON NORMALS: no scleral icterus Neck/C-Spine: COMMON NORMALS: supple Resp: COMMON NORMALS: normal respiratory effort AUSCULTATION: crackles Cardio: COMMON NORMALS: regular rate, regular rhythm, S1 normal heart sound and S2 normal heart sound RATE: regular rate RHYTHM: regular rhythm HEART SOUNDS: S1 normal and S2 normal GI: COMMON NORMALS: normal to inspection, nondistended, normoactive bowel sounds and non-tender Extremity: NARRATIVE EXTREMITY EXAM: 2+ edema b/l w/ chronic skin changes and ulcers Urinary Catheter Management^: Torres: Cath Placed During This Visit: no Data : 03/09/19 22:50 03/09/19 22:50 Micro: Microbiology 03/09/19 22:39 Blood Culture - Preliminary Blood SPECIMEN COLLECTED 03/09/19 22:50 Blood Culture - Preliminary Blood SPECIMEN COLLECTED A&P Assessment and plan (1) Shortness of breath: Status: Acute Code(s): R06.02 - Shortness of breath (2) Hypoxia: Status: Acute Code(s): R09.02 - Hypoxemia (3) HTN (hypertension): Status: Acute Code(s): I10 - Essential (primary) hypertension (4) Altered mental status: Status: Acute Code(s): R41.82 - Altered mental status, unspecified (5) UTI (urinary tract infection): Status: Acute Code(s): N39.0 - Urinary tract infection, site not specified (6) Hyperglycemia: Status: Acute Code(s): R73.9 - Hyperglycemia, unspecified (7) DANIEL (acute kidney injury): Status: Acute Code(s): N17.9 - Acute kidney failure, unspecified Additional A&P Information Additional A&P Information: # AMS likely 2/2 hypoxemic respiratory failure likely 2/2 CHF exacerbation based on crackles on exam, elevated proBNP and Xray findings and UTI. CT head negative - start IV lasix - c/w asa, bblocker and statin - [place] on hold due to DANIEL - I/O, daily weight - Echo # DANIEL likely due to cardio renal in setting of fluid overload - trend creat # UTI - start IV Rocephin - f/u UC #hyperglycemia - not acidodic and ketones negative - no fluids due to fluid overload - f/u A1c - ISS - start long acting # c/w rest of chronic home meds # dvt ppx: heparin subq Attestations Medical Necessity Statement*: Patient requires greater than 2 midnights of inpatient stay due to altered mental status and fluid overload. Coding Level of Care Code Acute Parachute/Combatant Diver Officer for Wardg Fwd Exam Problem Focused Diagnoses Shortness of breath R06.02 Hypoxia R09.02 HTN (hypertension) I10 Altered mental status R41.82 UTI (urinary tract infection) N39.0 Hyperglycemia R73.9 DANIEL (acute kidney injury) N17.9
[2019-03-10 04:03] LABS: Ketone (Acetest) Serum Negative (Negative)
--- NOTE | 2019-03-10 04:20 | ECG_ITS ---
Measurements Intervals [place] Rate: 105 P: 36 OK: 173 QRS: -1 QRSD: 90 T: 37 QT: 239 QTc: 316 SINUS TACHYCARDIA NONSPECIFIC T-WAVE ABNORMALITY ABNORMAL RHYTHM ECG Compared to ECG 12/18/2016 16:55:45 Sinus rhythm no longer present Ventricular premature complex(es) no longer present T-wave abnormality still present Electronically Signed On 03-10-2019 19:21:34 COMPUTER NETWORKER by Rolo Turner M.D. [email or web address]
[2019-03-10 05:02] LABS: Troponin 5 6HR 245.6 ng/L (0-15); Troponin 5 6HR Delta 18.6 ng/L (0-12)
--- NOTE | 2019-03-10 05:24 | USCV_ITS ---
Yunior Stewart Age: 73 Gender: M : 1945 Exam Date: 03/10/2019 09:00 Ordering Phys: Ritu Anne DO Technologist: Chel Rodríguez Exam Location: [facility] [place] Indication: CHF BP: 168 / 95 HR: 91 Rhythm: Sinus Technical Quality: Technically difficult study MEASUREMENTS (Male / Female) Normal Values 2D ECHO LV Diastolic Diameter PLAX 2.9 cm 4.2 - 5.9 / 3.9 - 5.3 cm LV Systolic Diameter PLAX 1.7 cm LV Chamber Size 3.8 cm IVS Diastolic Thickness 1.8 cm 0.6 - 1.0 / 0.6 - 0.9 cm IVS Systolic Thickness 2.4 cm LVPW Diastolic Thickness 1.4 cm 0.6 - 1.0 / 0.6 - 0.9 cm LVPW Systolic Thickness 1.4 cm RV Chamber Size 2.1 cm LVOT Diameter 2.0 cm LV Ejection Fraction 2D Teich 75.5 % LA Diameter 3.8 cm LA Width 3.2 cm LA Height 6.1 cm RA Width 2.6 cm RA Height 3.9 cm Aorta at Sinotubular Diameter 2.9 cm M-MODE LV Diastolic Diameter MM 7.8 cm 4.2 - 5.9 / 3.9 - 5.3 cm LV Systolic Diameter MM 6.1 cm LV Ejection Fraction MM Teich 43.9 % IVS Diastolic Thickness MM 1.4 cm 0.6 - 1.0 / 0.6 - 0.9 cm IVS Systolic Thickness MM 1.9 cm LVPW Diastolic Thickness MM 0.9 cm 0.6 - 1.0 / 0.6 - 0.9 cm LVPW Systolic Thickness MM 1.6 cm Aortic Annulus Diameter 3.7 cm LA Ao Ratio MM 1.0 MV E Point Septal Separation 1.2 cm DOPPLER AV Peak Velocity 120.0 cm/s LVOT Peak Velocity 118.0 cm/s AV Area Cont Eq vti 3.0 cm squared AV Area Cont Eq pk 3.2 cm squared MV Area PHT 3.0 cm squared Mitral E to A Ratio 0.7 MV E' Velocity 6.0 cm/s Mitral E to MV E' Ratio 11.2 Mitral E to LV E' Lateral Ratio 11.2 Mitral E to LV E' Septal Ratio 11.4 TV Peak E Velocity 67.0 cm/s Right Atrial Pressure 3.0 mmHg PV Peak Velocity 131.0 cm/s RV Acceleration Time 0.1 s RV Ejection Time 0.2 s RV AcT/ET 0.5 FINDINGS Left Ventricle Normal left ventricular size and systolic function, EF 60% . Relative hypokinesia of the septum.Grade I/IV diastolic dysfunction (abnormal relaxation filling pattern), normal to mildly elevated filling pressures. Right Ventricle Normal right ventricular size and systolic function. Right Atrium Not visualized well Left Atrium Mildly increased left atrial size. Mitral Valve Thickened mitral valve. Mild mitral annular calcification. Aortic Valve Thickened aortic valve. Tricuspid Valve Tricuspid valve not well visualized. Pulmonic Valve Pulmonic valve not well visualized. Pericardium No pericardial effusion. Aorta Normal aortic annulus size. CONCLUSIONS Normal left ventricular size and systolic function, EF 60% . Relative hypokinesia of the septum. Grade I/IV diastolic dysfunction (abnormal relaxation filling pattern), normal to mildly elevated filling pressures. Thickened mitral valve. Mild mitral annular calcification. Thickened aortic valve. There is no pericardial effusion. There are no intracardiac masses. Technically difficult study because of the poor ultrasonic window. Compared to study from 12/19/2016, there may not be a significant change Dr Rolo Turner MD [facility] (Electronically Signed) Final Date: 10 March 2019 15:12 S
[2019-03-10 05:43] LABS: Glucose Point of Care 437 mg/dL (70-110)
--- NOTE | 2019-03-10 05:46 | PC.NURSE ---
Dr Anne notified of patients blood sugar of 437. Orders to give 10units of Novolog and 10 units of Lantus. Read back verbal orders. Will continue to monitor.
[2019-03-10] MEDS: cefTRIAXone 1,000 MG in sodium chloride 0.9% (plus) 50 ML 100 MG IV (06:14)
[2019-03-10] MEDS: insulin glargine 100 units/1 mL 10 UNIT SUBCUT (06:19)
[2019-03-10] MEDS: enoxaparin 40 mg/0.4 mL Syringe SUBCUT (06:20)
[2019-03-10] MEDS: enoxaparin 100 mg/mL Syringe SUBCUT (06:21)
[2019-03-10 07:35] LABS: Glucose Point of Care 455 mg/dL (70-110)
[2019-03-10 07:57] LABS: Basophils % 0.1 %; Hematocrit 46.8 % (42.0-52.0); Hemoglobin 14.7 g/dL (11.7-16.6); Lymphocytes # 0.8 10^3/uL (0.8-4.8); Lymphocytes % 5.8 %; Mean Corpuscular HGB Conc 31.4 g/dL (30.0-36.0); Mean Corpuscular Hemoglobin 28.7 pg (28.0-34.0); Mean Corpuscular Volume 91.4 fL (80-94); Mean Platelet Volume 10.8 fL (7.4-10.4); Monocytes # 0.9 10^3/uL (0.2-0.9); Monocytes % 6.6 %; Neutrophils # 11.9 10^3/uL (1.8-7.7); Neutrophils % 86.6 %; Nucleated Red Blood Cells % 0 %; Platelet Count 276 10^3/cmm (130-400); Red Blood Count 5.12 10^6/uL (4.1-5.3); Red Cell Distribution Width 14.1 % (12.1-15.1); White Blood Count 13.7 10^3/uL (4.0-10.0)
[2019-03-10 08:21] LABS: Anion Gap 22.7 (5-19); Blood Urea Nitrogen 25 mg/dL (8-23); Calcium 11.6 mg/Dl (8.8-10.2); Carbon Dioxide 26 mmol/L (22-29); Chloride 99 mmol/L (98-107); Glucose 443 mg/dL (74-106); Magnesium 2.4 mg/dL (1.7-2.3); Sodium 145 mmol/L (136-145)
[2019-03-10 08:33] LABS: Potassium 2.7 mmol/L (3.5-5.1)
[2019-03-10] MEDS: FUROsemide 10 mg/mL SDV 4mL 40 MG IVP ×2 (08:54→17:42)
[2019-03-10] MEDS: ascorbic acid 500 mg Tablet 1000 MG PO (08:54)
[2019-03-10] MEDS: metoprolol tartrate 25 mg Tablet PO ×2 (08:54→17:43)
[2019-03-10] MEDS: tamsulosin 0.4 mg Capsule PO ×2 (08:55→17:43)
[2019-03-10] MEDS: aspirin 81 mg Chew Tablet PO (08:55)
[2019-03-10] MEDS: amlodipine 5 mg Tablet PO (08:55)
[2019-03-10] MEDS: atorvastatin 40 mg Tablet 80 MG PO (08:55)
--- NOTE | 2019-03-10 09:24 | PM.PN ---
Subjective Subjective: Interval history: Chart reviewed, AM labs noted. No urine output documented so far. Noted hypokalemia, replace IV. Patient seen and examined, family at bedside, arousable though still lethargic and very weak. states that he was recently discharged from our facility and since then he has continued to decline particularly in terms of his functional capacity. He has had difficulty urinating particularly over the past 1 to 2 days. He was previously self catheterizing twice a day. He had some bouts of urinary and bowel incontinence at home. His appetite has been significantly diminished and he has been wanting to eat mostly sweets. is not aware of a prior history of diabetes. Patient is unable to tell me why he is in the hospital, he is able to tell me his name, aware that he is in [place] and at [facility], correctly states his date of breath. Has had 2 episodes of bowel incontinence today so far. Case discussed with Dr. Turner and will plan for stress testing in the a.m. so we will keep n.p.o. after midnight. Medications: Reviewed: Yes Medication Review Details: Active Medications Generic Name Dose Route Start Last Admin Trade Name Freq PRN Reason Stop Dose Admin Amlodipine Besylat e 5 mg 03/10/19 09:00 03/10/19 08:55 Norvasc PO 5 mg DAILY KILO Administration Ascorbic Acid 1,000 mg 03/10/19 09:00 03/10/19 08:54 Vitamin C PO 1,000 mg DAILY KILO Administration Aspirin 81 mg 03/10/19 09:00 03/10/19 08:55 Aspirin Chewable PO 81 mg DAILY KILO Administration Atorvastatin Calci um 80 mg 03/10/19 09:00 03/10/19 08:55 Lipitor PO 80 mg DAILY KILO Administration Dextrose 25 ml 03/10/19 03:53 D50w IVP ONCE PRN hypoglycemia prot ocol Protocol Dextrose 50 ml 03/10/19 03:53 D50w IVP PRN PRN hypoglycemia prot ocol Protocol Glucagon 1 mg 03/10/19 03:53 Glucagen IM ONCE PRN Adult Acute Hypog lycemia Prot. Protocol Dextrose 500 mls @ 100 mls /hr 03/10/19 03:53 D5w IV ONCE PRN Adult Acute Hypog lycemia Prot Protocol Ceftriaxone Sodium 1,000 mg/ 50 mls @ 100 mls/ hr 03/10/19 04:45 03/10/19 07:23 Sodium Chloride IV Infused Q24H KILO Infusion Protocol Potassium Chloride 40 meq in 100 mls @ 25 mls/hr 03/10/19 09:30 K-Wm IV 03/10/19 17:29 Q4H KILO Insulin Aspart 0 unit 03/10/19 08:00 03/10/19 08:55 Novolog SUBCUT 16 unit WM&BEDTIME KILO Administration Protocol Metoprolol Tartrat e 25 mg 03/10/19 09:00 03/10/19 08:54 Lopressor PO 25 mg BID KILO Administration Tamsulosin HCl 0.4 mg 03/10/19 09:00 03/10/19 08:55 Flomax PO 0.4 mg BID KILO Administration No Known Allergies Allergy (Verified 03/09/19 21:59) Vitals/I&O/Wt Last Vital Signs Temp 98.9 F 03/10/19 07:32 Pulse 87 03/10/19 07:32 Resp 18 03/10/19 07:32 BP 168/95 03/10/19 07:32 Pulse Ox 95 03/10/19 07:32 03/09/19 03/10/19 03/10/19 22:59 06:59 14:59 Intake Total 50 / 50 Balance 50 / 50 Weight last 48 hrs Weight 140.16 kg Physical Exam Const: COMMON NORMALS: no apparent distress GENERAL APPEARANCE: cooperative, lethargic and ill appearing; not comfortable NUTRITIONAL APPEARANCE: obese morbidly obese ORIENTATION/CONSCIOUSNESS: Yes awake, Yes oriented to person, Yes oriented to place and Yes lethargic HENMT: COMMON NORMALS: normocephalic, head/scalp atraumatic, hearing grossly normal bilaterally and moist oral mucous membranes HEAD & SCALP: normocephalic and atraumatic Eye: COMMON NORMALS: PERRL, EOMs intact bilaterally and conjunctivae normal CONJUNCTIVA: Yes conjunctivae normal PUPIL: Yes PERRL Neck/C-Spine: COMMON NORMALS: full ROM GENERAL: Yes normal visual inspection and Yes trachea midline Resp: COMMON NORMALS: normal respiratory effort, no retractions and no use of accessory muscles EFFORT & INSPECTION: Yes symmetric chest movement, No tachypneic and No uses accessory muscles AUSCULTATION: crackles Laterality: bilateral and diminished lung sounds bilateral Cardio: COMMON NORMALS: regular rate, regular rhythm, S1 normal heart sound, S2 normal heart sound and no murmurs RATE: regular rate RHYTHM: regular rhythm HEART SOUNDS: S1 normal and S2 normal GI: COMMON NORMALS: normal to inspection, nondistended, normoactive bowel sounds, soft to palpation and non-tender PALPATION: Yes soft : BLADDER/KIDNEY EXAM: Yes catheter in place Catheter type (Male): urethral Extremity: COMMON NORMALS: normal to inspection, full ROM and no clubbing, cyanosis or edema; negative for no pedal edema Neuro: COMMON NORMALS: no focal motor deficits and no sensory deficits noted SENSORIUM/ORIENTATION: Yes oriented to person, Yes oriented to place and Yes lethargic OTHER: is generally very weak Psych: COMMON NORMALS: mental status grossly normal, thought process normal, cooperative and affect normal SPEECH: Yes other (mumbles his words, difficult to understand) THOUGHT PROCESS: normal thought process Skin: COMMON NORMALS: no rashes or lesions noted, no jaundice, no petechiae and no mottling GENERAL SKIN EXAM: no rashes or lesions noted Urinary Catheter Management^: Torres: Cath Placed During This Visit: no Data Micro: Micro: Microbiology 03/09/19 22:39 Blood Culture - Pr eliminary Blood [facility] MICHAEL 03/09/19 22:50 Blood Culture - Pr eliminary Blood [facility] A&P Assessment and plan (1) Elevated troponin: -Noted significant delta change in serial troponins x6 hours -Could be due to acute CHF exacerbation though patient does have a history of CAD -Currently on therapeutic Lovenox -Telemetry monitoring -Management of CHF exacerbation as noted below -Repeat echo: EF=60%, G1DD, relative hypokinesia of LV septum -Cardiology consult by Dr. Johnny griffin; plan for chemical stress testing in a.m., n.p.o. after midnight -Continue aspirin, statin, beta-cherri Status: Acute Code(s): R79.89 - Other specified abnormal findings of blood chemistry (2) DANIEL (acute kidney injury): -Noted acute renal impairment, likely has CKD, unknown stage. Per review of medical record baseline creatinine seems to be above 3 -Continue to monitor renal function, avoid nephrotoxins and renally dose meds -Recent renal ultrasound done in 07/2018 showing marked prostate gland enlargement and urinary bladder wall hypertrophy -Monitor urine output -Hold IV fluid hydration at this time as patient is already fluid overloaded Status: Acute Code(s): N17.9 - Acute kidney failure, unspecified (3) Hyperglycemia: -Noted significant hyperglycemia with blood sugar initially over 500, negative serum and urine ketones, normal pH so not consistent with DKA -Continue frequent Accu-Cheks -ISS, hypoglycemia precautions -Hold oral intake until consistently awake -A1c pending Status: Acute Code(s): R73.9 - Hyperglycemia, unspecified (4) Altered mental status: -Noted altered mental status likely secondary to hypoxic respiratory failure with noted acute diastolic CHF exacerbation as well as UTI as noted below. However I am concerned that given his overall clinical status, decline in functional capacity, overall ill appearance, extent of confusion, this may not be enough to explain what is going on. May consider further evaluation including lumbar puncture, further imaging of his spine to exclude occult infection given leukocytosis though he is currently afebrile as well as a broader spectrum of antibiotic coverage -Fall precautions -ABG noted -Supplemental oxygen, BiPAP as needed -IV diuresis with Lasix, close monitoring of electrolytes and renal function -Echo: EF=60%, G1DD, relative hypokinesis of LV septum -Daily weights, monitoring of ins and outs -Chest x-ray indicative of pulmonary edema -CT head unremarkable, ammonia within normal limits Status: Acute Qualifiers: Altered mental status type: somnolence Qualified Code(s): R40.0 - Somnolence Code(s): R41.82 - Altered mental status, unspecified (5) UTI (urinary tract infection): -Urinalysis indicative of infection, microscopic hematuria -Follow-up urine culture -Continue ceftriaxone -Noted leukocytosis, continue to trend WBC; currently afebrile -Continue to monitor urine output Status: Acute Qualifiers: Hematuria presence: with hematuria Urinary tract infection type: acute cystitis Qualified Code(s): N30.01 - Acute cystitis with hematuria Code(s): N39.0 - Urinary tract infection, site not specified (6) HTN (hypertension): -Monitor blood pressure; blood pressure elevated currently -Continue beta-cherri, already on Lasix Status: Acute Qualifiers: Hypertension type: essential hypertension Qualified Code(s): I10 - Essential (primary) hypertension Code(s): I10 - Essential (primary) hypertension Additional A&P Information Additional A&P Information: -BPH, on Flomax -Morbid obesity: BMI-39 kg/m2 -NIDDM type II; A1c pending -Hyperlipidemia; on statin -Stool studies if continued incontinence -hold diet until more consistently awake -DVT ppx not needed as on therapeutic Lovenox -Dispo: home -Code status: FULL code Attestations Medical Necessity Statement*: Patient requires hospitalization for continued IV diuresis, monitoring of blood glucose, mental status, and management of NSTEMI. Coding Level of Care Code Acute Research Center Director for Chg Fwd Exam Problem Focused Diagnoses Elevated troponin R79.89 DANIEL (acute kidney injury) N17.9 Hyperglycemia R73.9 Altered mental status R40.0 Altered mental status type: somnolence UTI (urinary tract infection) N30.01 Hematuria presence: with hematuria Urinary tract infection type: acute cystitis HTN (hypertension) I10 Hypertension type: essential hypertension
[2019-03-10] MEDS: potassium chloride premix 40 MEQ/100 ML PREMIX 25 MEQ IV ×2 (10:29→14:42)
[2019-03-10] MEDS: lidocaine 1% INJ 20 mL 5 ML IV ×2 (10:36→14:43)
[2019-03-10 11:21] LABS: Glucose Point of Care 298 mg/dL (70-110)
--- NOTE | 2019-03-10 14:02 | P.CONIM_ITS ---
Providers/Reason For Consult Consulting Physican/Specialty*: Marleny Turenr MD/cardiology Reason for Consult*: Patient with a heart failure and elevated troponin T Requesting Physcian: Dr. Macedo Attending Physician: Domitila Bagley MD Primary Care Provider: Enzo Grover DO History of Present Illness History of Present Illness Yunior Stewart is a 73 year old male who is admitted to hospital with altered mental status and recurrent fall. He was found to have elevated troponin I and features of congestive heart failure. Cardiology consult is requested for further cardiac evaluation recommendations. Patient has a history of atherosclerotic heart disease, coronary bypass surgery, high blood pressure and dyslipidemia. According to the patient's , for the last several months, patient has been progressively getting weak and unsteady in his gait. He was brought to the emergency room a week ago with similar complaints. He apparently could not hold himself up and fell down. His examination was unremarkable except for features of lumbar radiculopathy. He was advised about using a walker for the ambulation. He also was prescribed pain medications. According to the , the patient does not move around much. He was finding it difficult to get up from his couch to go to the bathroom. Last evening, the was trying to help him to go to the bathroom. On the way, he got unsteady and then fell down. The ambulance was called in and patient was brought to the hospital. He was found to have elevated blood sugar in the 500 range. He also was found to have elevated troponin T, in the 200 range. The proBNP was 2370. Patient denies any chest pain. No significant shortness of breath. He has been having swelling of the lower extremities for the last few years. Review of Systems Const: Reports: other (Has been having generalized weakness. Poor mentation.); Denies: fever, chills, change in appetite, fatigue or night sweats Eyes: Denies: change in vision, blurry vision or eye discomfort ENMT: Denies: bleeding gums, nose bleeds or other (Spinning Sensation, Trouble Swallowing) Card: Denies: syncope, pre-syncope, shortness of breath when lying down or leg pain with exertion Resp: Denies: productive cough, change in phlegm color or coughing up blood GI: Denies: vomiting, vomiting blood, bloating, blood in stool or black tarry stool : Denies: blood in urine or other (Gynecomastia) Musc: Reports: back pain, extremity pain, extremity swelling and other (Generalized weakness); Denies: redness or muscle cramps Skin/Breast: Denies: rash, itching, redness, new lesion, changes in skin color, yellow skin, nail changes or breast mass/lump Neuro: Reports: lack of coordination, frequent falls, dizziness and other (Difficulty in ambulation as mentioned above); Denies: headache or seizure-like activity Psych: Reports: other (Delusions, Disorientation, or Insomnia); Denies: visual hallucinations, auditory hallucinations or tactile hallucinations Endo: Denies: excessive urination, excessive thirst or other (Abnormal Hair Loss) Mauri/Lymph: Denies: easy bruising All/Imm: Denies: hives Meds/Allergies Home Medications and Allergies Home Medications Medication Instructions Recorded Confirmed Type amlodipine [Norvasc] 5 mg PO DAILY 03/09/19 03/09/19 History ascorbic acid (vitamin C) [Vitamin 1 g PO DAILY 03/09/19 03/09/19 History C] aspirin 81 mg PO DAILY 03/09/19 03/09/19 History atorvastatin [Lipitor] 80 mg PO DAILY 03/09/19 03/09/19 History furosemide [Lasix] 40 mg PO DAILY 03/09/19 03/09/19 History methenamine hippurate [Hiprex] 1 g PO BID 03/09/19 03/09/19 History metoprolol tartrate 25 mg PO BID 03/09/19 03/09/19 History tamsulosin [Flomax] 0.4 mg PO BID 03/09/19 03/09/19 History Allergies Allergy/AdvReac Type Severity Reaction Status Date / Time No Known Allergies Allergy Verified 03/09/19 21:59 Current Medications Current Medications Generic Name Dose Route Start Last Admin Trade Name Freq PRN Reason Stop Dose Admin Amlodipine Besylate 5 mg 03/10/19 09:00 03/10/19 08:55 Norvasc PO 5 mg DAILY KILO Administration Ascorbic Acid 1,000 mg 03/10/19 09:00 03/10/19 08:54 Vitamin C PO 1,000 mg DAILY KILO Administration Aspirin 81 mg 03/10/19 09:00 03/10/19 08:55 Aspirin Chewable PO 81 mg DAILY KILO Administration Atorvastatin Calcium 80 mg 03/10/19 09:00 03/10/19 08:55 Lipitor PO 80 mg DAILY KILO Administration Ceftriaxone Sodium 1,000 mg/ 50 mls @ 100 mls/hr 03/10/19 04:45 03/10/19 07:23 Sodium Chloride IV Infused Q24H KILO Infusion Protocol Potassium Chloride 40 meq in 100 mls @ 25 mls/hr 03/10/19 09:30 03/10/19 10:29 K-Wm IV 03/10/19 17:29 25 mls/hr Q4H KILO Administration Insulin Aspart 0 unit 03/10/19 08:00 03/10/19 12:03 Novolog SUBCUT 10 unit WM&BEDTIME KILO Administration Protocol Lidocaine HCl 5 ml 03/10/19 10:15 03/10/19 10:36 Lidocaine 1% IV 03/10/19 14:16 5 ml Q4H KILO Administration Metoprolol Tartrate 25 mg 03/10/19 09:00 03/10/19 08:54 Lopressor PO 25 mg BID KILO Administration Tamsulosin HCl 0.4 mg 03/10/19 09:00 03/10/19 08:55 Flomax PO 0.4 mg BID KILO Administration PFSH Acute PFSH: Statuses (acute, chronic, etc) shown below reflect problem list status as previously entered and may not be historically accurate Medical History (Updated 03/10/19 @ 17:09 by Rolo Turner MD) Acute on chronic diastolic heart failure (Acute) 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 Currently he is not being followed by a publicity expert. His compliance to medication and follow-up is questionable Vitals/I&O/Wt Last Vital Signs Temp 98.6 F 03/10/19 11:16 Pulse 89 03/10/19 11:16 Resp 19 H 03/10/19 11:16 BP 156/87 03/10/19 11:16 Pulse Ox 97 03/10/19 11:16 03/09/19 03/10/19 03/10/19 22:59 06:59 14:59 Intake Total 50 / 50 Output Total 450 / 450 Balance -400 / -400 Weight last 48 hrs Weight 309 lb Physical Exam Const: EXAM LIMITATIONS: altered mental status (Oriented to person but disoriented to time and place) GENERAL APPEARANCE: cooperative, well developed and well hydrated; not in distress HENMT: MOUTH: lip normal; no other (ulcers or bleeding) TEETH & GINGIVA: no other (bleeding observed and inflammation present) Eye: COMMON NORMALS: PERRL GENERAL EYE: normal appearance of both eyes SCLERA: sclerae normal PUPIL: Yes PERRL DIRECT OPHTHALMOSCOPY: Yes other (The fundus is not visualized) Neck/C-Spine: GENERAL: Yes trachea midline and No JVD THYROID: not diffusely enlarged CAROTIDS: Yes normal carotid upstroke (and runoff) Chest: CHEST: No abnormal inspection of the chest Resp: EFFORT & INSPECTION: Yes symmetric chest movement and No uses accessory muscles AUSCULTATION: no crackles, no wheezes and diminished lung sounds bilateral (At the bases) Cardio: COMMON NORMALS: regular rate, S1 normal heart sound and S2 normal heart sound JUGULAR VENOUS DISTENTION: no JVD PALPATION: no heave, no palpable S3, no thrill and other (PMI could not be palpated) RATE: regular rate HEART SOUNDS: S1 normal, S2 normal, murmur (Short systolic murmur at the left sternal border. No diastolic murmurs. ) and no rubs BRUITS: no abdominal aortic bruits PERIPHERAL PULSES: femoral pulses present positive bilateral (Normal), posterior tibial pulses present positive bilateral (Normal) and dorsalis pedis pulses present positive bilateral (Normal) GI: AUSCULTATION: Yes normoactive bowel sounds and No abdominal bruit PALPATION: No tender, No hepatomegaly, No splenomegaly and No mass Back/Pelvis: GENERAL BACK: No swelling and No other (joint deformities) THORACIC SPINE/UPPER BACK: No kyphosis present LUMBAR SPINE/LOWER BACK: No lumbar scoliosis present Extremity: NARRATIVE EXTREMITY EXAM: Patient has features of bilateral chronic venous stasis. 1+ edema both lower extremities. No cyanosis. GENERAL: No cyanosis Neuro: COMMON NORMALS: negative for no focal motor deficits MOTOR EXAM: No tremor Psych: MOOD & AFFECT: Yes other (Normal mood and affect) Skin: COMMON NORMALS: skin turgor normal; negative for no petechiae GENERAL SKIN EXAM: turgor normal, skin not dry and no erythema RASHES: rash noted NAILS: normal, no clubbing, not discolored and no other (cyanosis) Urinary Catheter Management^: Torres: Cath Placed During This Visit: no Data Labs: Other Labs: The latest potassium was 2.7. The BUN was 25 creatinine 1.8. The blood glucose was in the 500 range at the time of admission. The latest leukosis 443. Calcium was 11.6. The troponin T was 227 with a delta of 17.2 The urine WBC was 25-40 with a greater than 100 RBCs per high-power field. Positive leukocyte Estrace and negative nitrates the white cell count of 13.7 hemoglobin of 14.7 with hematocrit of 46.8 Micro: Micro: Microbiology 03/09/19 22:39 Blood Culture - Pr eliminary Blood [facility] 03/09/19 22:50 Blood Culture - Pr eliminary Blood [facility] Imaging^: CT Head: Radiologist's impression: No acute pathology noted CXR: My impression: The chest x-ray revealed a borderline cardiac silhouette with no lung infiltrate. Features of previous coronary artery bypass surgery. Echo: My impression: Normal LV size ejection fraction of around 60%. Mild hypokinesia of the septum. No significant stenotic or regurgitant lesions. Grade 1 left ventricular diastolic dysfunction. EKG^: EKG 1: My Interpretation: The EKG showed a normal sinus rhythm with a features of old inferior wall and septal ND. Left axis deviation. Some nonspecific ST wave changes. Normal CT interval. A&P Assessment and plan (1) Elevated troponin: Patient's elevated troponin T could be related to type II myocardial infarction. His echocardiogram revealed no significant change from the previous study in 2017. In view of his history of coronary bypass surgery approximately 20 years ago, possibility of him having underlying coronary ischemia causing a non-ST elevation myocardial infarction also is a consideration. Patient currently denies any chest pain. Hemodynamically seems to be stable. May be treated with beta-cherri, aspirin, statin and other antihypertensive medications. In the absence of any acute ischemic changes on the EKG and also any specific symptoms of coronary insufficiency, I may hold off on Plavix or therapeutic dose of heparin at this time. May consider a myocardial perfusion imaging, to evaluate for any underlying coronary ischemia. Status: Acute Code(s): R79.89 - Other specified abnormal findings of blood chemistry (2) Acute on chronic diastolic heart failure: Patient has features of congestive heart failure with preserved systolic function. Coronary ischemia causing this is a consideration. He may be carefully treated with diuretics. Status: Acute Code(s): I50.33 - Acute on chronic diastolic (congestive) heart failure (3) Dyslipidemia (high LDL; low HDL): Continue on the current medications. 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 Myocardial perfusion imaging as mentioned above. Status: Acute Qualifiers: Associated angina: without angina [place] vs. transplanted heart: [place] heart Qualified Code(s): I25.810 - Atherosclerosis of coronary artery bypass graft(s) without angina pectoris Code(s): I25.810 - Atherosclerosis of coronary artery bypass graft(s) without angina pectoris (5) DANIEL (acute kidney injury): Patient has a history of renal failure. Kidney function seems to be fairly stable at this time. May continue on the current measures. Status: Acute Code(s): N17.9 - Acute kidney failure, unspecified (6) HTN (hypertension): Currently has stage II hypertension. Need to optimize antihypertensive m edication. I may go up on the amlodipine to 10 mg p.o. daily. Status: Acute Qualifiers: Hypertension type: essential hypertension Qualified Code(s): I10 - Essential (primary) hypertension Code(s): I10 - Essential (primary) hypertension Additional A&P Information Additional A&P Information: Other problems are Altered mental status, etiology? Degenerative joint disease -chronic back pain and lumbar radiculopathy Hypercalcemia, etiology? 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 transplanted heart: [place] heart DANIEL (acute kidney injury) N17.9 HTN (hypertension) I10 Hypertension type: essential hypertension Time Spent (min) 65
[2019-03-10 17:01] LABS: Glucose Point of Care 338 mg/dL (70-110)
[2019-03-10] MEDS: acetaminophen 325 mg Tablet 650 MG PO (19:36)
[2019-03-10 20:30] LABS: Glucose Point of Care 376 mg/dL (70-110)
[2019-03-10 20:39] LABS: Estmated Average Glucose 272; Hemoglobin A1C 11.1 % (4.0-6.0)
[2019-03-11] VITALS (8 sets, daily range): BP systolic 130–154; BP diastolic 70–96; PULSE 74–94; RESP 18–30; TEMP 36.4–38.2; O2SAT 93–96
[2019-03-11 03:33] LABS: Basophils % 0.1 %; Hematocrit 46.6 % (42.0-52.0); Hemoglobin 14.7 g/dL (11.7-16.6); Lymphocytes # 0.7 10^3/uL (0.8-4.8); Lymphocytes % 3.9 %; Mean Corpuscular HGB Conc 31.5 g/dL (30.0-36.0); Mean Corpuscular Hemoglobin 28.8 pg (28.0-34.0); Mean Corpuscular Volume 91.4 fL (80-94); Monocytes # 1.2 10^3/uL (0.2-0.9); Monocytes % 6.4 %; Neutrophils # 17.1 10^3/uL (1.8-7.7); Nucleated Red Blood Cells % 0 %; Platelet Count 250 10^3/cmm (130-400); Red Cell Distribution Width 14.3 % (12.1-15.1); White Blood Count 19.2 10^3/uL (4.0-10.0)
[2019-03-11 03:49] LABS: Alanine Aminotransferase 35 U/L (0-41); Albumin Level 2.3 g/dL (3.5-5.2); Alkaline Phosphatase 128 IU/L (40-130); Anion Gap 18.4 (5-19); Aspartate Amino Transferase 34 U/L (0-40); Blood Urea Nitrogen 41 mg/dL (8-23); Calcium 11.4 mg/Dl (8.8-10.2); Carbon Dioxide 24 mmol/L (22-29); Chloride 92 mmol/L (98-107); Globulin 4.7 g/dL (1.3-4.6); Glucose 374 mg/dL (74-106); Potassium 3.4 mmol/L (3.5-5.1); Sodium 131 mmol/L (136-145); Total Bilirubin 0.8 mg/dL (0.15-1.2)
[2019-03-11] MEDS: cefTRIAXone 1,000 MG in sodium chloride 0.9% (plus) 50 ML 100 MG IV (04:28)
--- NOTE | 2019-03-11 04:46 | PC.NURSE ---
Called placed to Dr. Anne. Was reviewing patients labs while giving lasix and seen patients kidney function, urine output and potassium level. Patient received 10mg lasix. Notified Dr. Anne after 10mg of lasix and she said to hold this dose of lasix and no other orders received.
--- NOTE | 2019-03-11 06:00 | ECG_ITS ---
NAME OF STUDY: LEXISCAN SESTAMIBI STRESS TEST INDICATION: ASHD/ELEVATED TROPONIN, PROCEDURE: At the baseline, the EKG revealed normal sinus rhythm with diffuse nonspecific T wave changes.. The baseline blood pressure was 138/76 mm Hg with a heart rate of 81 beats/min. Lexiscan was infused over a period of 20 seconds. A total of 0.4 milligrams of Lexiscan was infused. The stress phase was continued for a total of 5 minutes. Heart rate at the end of the stress phase was 86 with a blood pressure 152/60. The EKG at the peak infusion revealed no significant changes occasional PVCs were noted with the Lexiscan infusion. Sestamibi was injected 20 seconds after the Lexiscan infusion. Blood pressure at the end of the recovery phase was 140/70 with a heart rate of 82 per minute. CONCLUSION: 1. No significant EKG changes with the LexiScan infusion 2. No LexiScan induced chest pain. occasional PVCs were noted with the Lexiscan infusion 3. Normal blood pressure and heart rate response 4. Sestamibi/sestamibi perfusion scan pending; see separate report. Electronically Signed On 03-11-2019 19:23:45 AUTO PAINTER HELPER by Rolo Turner M.D. [email or web address]
--- NOTE | 2019-03-11 06:37 | PC.NURSE ---
This nurse was notified by Jane Purdy, [facility] [place] [facility], that when he went to inject the patient for their rest portion of the stress test that the patient was confused. Jane Purdy spoke with the patients nurse and it was decided that the stress test be put on hold until Dr. Turner could be notified to speak to the patient and his family. MELONIE Albarado, on CSU was notified. She verified that the patient had been very confused overnight and that she would pass it along to MELONIE Martínez, in report.
[2019-03-11 07:46] LABS: Glucose Point of Care 352 mg/dL (70-110)
[2019-03-11] MEDS: ascorbic acid 500 mg Tablet 1000 MG PO (09:19)
[2019-03-11] MEDS: aspirin 81 mg Chew Tablet PO (09:20)
[2019-03-11] MEDS: metoprolol tartrate 25 mg Tablet PO ×2 (09:20→17:18)
[2019-03-11] MEDS: tamsulosin 0.4 mg Capsule PO ×2 (09:20→17:18)
[2019-03-11] MEDS: amlodipine 10 mg Tablet PO (09:20)
[2019-03-11] MEDS: atorvastatin 40 mg Tablet 80 MG PO (09:20)
--- NOTE | 2019-03-11 09:38 | P.PN_ITS ---
Subjective Subjective: Interval history: When asked how he is doing reports he is concerned he may not be doing well from cardiac standpoint. Denies current chest pain. Denies difficulty breathing. He says he has been having some issues with his memory recently. He is oriented x3, and when asked a year states I am not that bad, just noticed things are a little off . Vitals/I&O/Wt Last Vital Signs Temp 97.6 F 03/11/19 07:45 Pulse 85 03/11/19 07:45 Resp 21 H 03/11/19 07:45 BP 151/79 03/11/19 07:45 Pulse Ox 96 03/11/19 07:45 03/10/19 03/11/19 03/11/19 22:59 06:59 14:59 Intake Total 480 / 630 350 / 980 Output Total 200 / 650 Balance 480 / 180 150 / 330 Weight last 48 hrs Weight 129.002 kg Weight 129.002 kg Weight 140.16 kg Physical Exam Const: COMMON NORMALS: no apparent distress and oriented x3 HENMT: COMMON NORMALS: oropharynx normal Resp: COMMON NORMALS: normal respiratory effort AUSCULTATION: crackles (Few at left base) Cardio: COMMON NORMALS: regular rhythm, S1 normal heart sound, S2 normal heart sound and no murmurs RHYTHM: regular rhythm HEART SOUNDS: S1 normal and S2 normal OTHER: Old sternotomy scar GI: COMMON NORMALS: normal to inspection, nondistended, normoactive bowel sounds, soft to palpation and non-tender PALPATION: Yes soft Extremity: COMMON NORMALS: no joint enlargement GENERAL: Yes edema (Trace bilateral) Neuro: COMMON NORMALS: oriented x3 and moves all extremities Skin: COMMON NORMALS: no rashes or lesions noted GENERAL SKIN EXAM: no rashes or lesions noted Urinary Catheter Management^: Torres: Cath Placed During This Visit: no Data Micro: Micro: Microbiology 03/10/19 00:12 Urine Culture - Pr eliminary Urine,Clean Catch Gram Negative R ods 03/09/19 22:39 Blood Culture - Pr eliminary Blood NEGATIVE TO ANDRES E 03/09/19 22:50 Blood Culture - Pr eliminary Blood NEGATIVE TO ANDRES E A&P Assessment and plan (1) Elevated troponin: Plan for stress test today. Denies current chest pain. Continue aspirin, beta-cherri, statin. Status: Acute Code(s): R79.89 - Other specified abnormal findings of blood chemistry (2) DANIEL (acute kidney injury): Creatinine up to 3.1 this morning. She reports chronic kidney disease stage III. His baseline is difficult to find, although back in November 2016 had acute kidney injury with loss creatinine of 3.2. For now further diuretic as he is perhaps achieving euvolemia. Creatinine up to 3.1. Currently trace if any pedal edema. Recent renal ultrasound done in 07/2018 showing marked prostate gland enlargement and urinary bladder wall hypertrophy Continue Flomax. Continue follow-up with urology after discharge. Status: Acute Code(s): N17.9 - Acute kidney failure, unspecified (3) Hyperglycemia: With gradual improvement Continue insulin. Consistent carbohydrate diet once resumed. Status: Acute Code(s): R73.9 - Hyperglycemia, unspecified (4) Altered mental status: This appears to be improving. He is oriented x3. Does admit to having some issues with his memory recently. Suspected multifactorial secondary to acute encephalopathy with complicated urinary tract infection, hypoxia secondary to CHF. Possibly with contribution from severe hyperglycemia, although DKA was not suspected. He denies any headache, photosensitivity, neck pain or stiffness. Status: Acute Qualifiers: Altered mental status type: somnolence Qualified Code(s): R40.0 - Somnolence Code(s): R41.82 - Altered mental status, unspecified (5) UTI (urinary tract infection): So far nothing on culture. Continues on Rocephin. Suspected complicated urinary tract infection with acute encephalopathy on presentation. Fever last night up to 101.1. Has history of urinary retention, BPH, urinary bladder wall thickening. Performs straight catheterization at home. Monitor for retention. Continue Flomax. Continue follow-up with urology after discharge. Status: Acute Qualifiers: Urinary tract infection type: acute cystitis Hematuria presence: with hematuria Qualified Code(s): N30.01 - Acute cystitis with hematuria Code(s): N39.0 - Urinary tract infection, site not specified (6) HTN (hypertension): Blood pressure is closer to goal today. Continue to monitor. Resume low- sodium diet after stress test. Status: Acute Qualifiers: Hypertension type: essential hypertension Qualified Code(s): I10 - Essential (primary) hypertension Code(s): I10 - Essential (primary) hypertension Additional A&P Information Additional A&P Information: Mild hypokalemia: We will give low-dose oral potassium given worsening renal function. BPH, on Flomax Morbid obesity: BMI-39 kg/m2 NIDDM type II; A1c pending Hyperlipidemia; on statin Fecal incontinence? Attestations Medical Necessity Statement*: Continue admission for assessment of management of suspected progression of coronary disease, troponin elevation with possible type II AL, acute kidney, complicated urinary tract infection with acute encephalopathy. Coding Level of Care Code Acute Guide Dog Instructor for Chg Fwd Diagnoses Elevated troponin R79.89 DANIEL (acute kidney injury) N17.9 Hyperglycemia R73.9 Altered mental status R40.0 Altered mental status type: somnolence UTI (urinary tract infection) N30.01 Urinary tract infection type: acute cystitis Hematuria presence: with hematuria HTN (hypertension) I10 Hypertension type: essential hypertension
[2019-03-11 11:30] LABS: Glucose Point of Care 386 mg/dL (70-110)
[2019-03-11] MEDS: heparin 5,000 unit/mL INJ 1 mL 5000 UNIT SUBCUT ×2 (11:48→17:17)
[2019-03-11] MEDS: regadenoson 0.4 Mg/5 ml Syringe IVP (12:58)
--- NOTE | 2019-03-11 13:14 | PC.NURSE ---
PATIENT HELD IN CDL UNTIL 2ND NUC MED SCAN. CSU NOTIFIED.
--- NOTE | 2019-03-11 13:20 | P.PN_ITS ---
Subjective Subjective: Interval history: Patient is looking okay. He denies any chest pain. He had a myocardial perfusion imaging today. He was found to have moderate area of ischemia in the distribution of the right coronary artery and circumflex artery. His white cell count is going up. He also has worsening of the BUN and creatinine. Medications: Reviewed: Yes Medication Review Details: Active Medications Generic Name Dose Route Start Last Admin Trade Name Williamq PRN Reason Stop Dose Admin Amlodipine Besylat e 5 mg 03/10/19 09:00 03/10/19 08:55 Norvasc PO 5 mg DAILY KILO Administration Ascorbic Acid 1,000 mg 03/10/19 09:00 03/10/19 08:54 Vitamin C PO 1,000 mg DAILY KILO Administration Aspirin 81 mg 03/10/19 09:00 03/10/19 08:55 Aspirin Chewable PO 81 mg DAILY KILO Administration Atorvastatin Calci um 80 mg 03/10/19 09:00 03/10/19 08:55 Lipitor PO 80 mg DAILY KILO Administration Dextrose 25 ml 03/10/19 03:53 D50w IVP ONCE PRN hypoglycemia prot ocol Protocol Dextrose 50 ml 03/10/19 03:53 D50w IVP PRN PRN hypoglycemia prot ocol Protocol Glucagon 1 mg 03/10/19 03:53 Glucagen IM ONCE PRN Adult Acute Hypog lycemia Prot. Protocol Dextrose 500 mls @ 100 mls /hr 03/10/19 03:53 D5w IV ONCE PRN Adult Acute Hypog lycemia Prot Protocol Ceftriaxone Sodium 1,000 mg/ 50 mls @ 100 mls/ hr 03/10/19 04:45 03/10/19 07:23 Sodium Chloride IV Infused Q24H KILO Infusion Protocol Potassium Chloride 40 meq in 100 mls @ 25 mls/hr 03/10/19 09:30 K-Wm IV 03/10/19 17:29 Q4H KILO Insulin Aspart 0 unit 03/10/19 08:00 03/10/19 08:55 Novolog SUBCUT 16 unit WM&BEDTIME KILO Administration Protocol Metoprolol Tartrat e 25 mg 03/10/19 09:00 03/10/19 08:54 Lopressor PO 25 mg BID KILO Administration Tamsulosin HCl 0.4 mg 03/10/19 09:00 03/10/19 08:55 Flomax PO 0.4 mg BID KILO Administration No Known Allergies Allergy (Verified 03/09/19 21:59) Vitals/I&O/Wt Last Vital Signs Temp 98.0 F 03/11/19 11:29 Pulse 83 03/11/19 13:10 Resp 20 H 03/11/19 11:29 BP 140/70 03/11/19 13:10 Pulse Ox 95 03/11/19 11:29 03/10/19 03/11/19 03/11/19 22:59 06:59 14:59 Intake Total 480 / 630 350 / 980 Output Total 200 / 650 Balance 480 / 180 150 / 330 Weight last 48 hrs Weight 284 lb 6.4 oz Weight 284 lb 6.4 oz Weight 309 lb Physical Exam Const: COMMON NORMALS: alert and well nourished EXAM LIMITATIONS: altered mental status (Oriented to person but disoriented to time and place) GENERAL APPEARANCE: cooperative, well developed and well hydrated; not in distress HENMT: MOUTH: lip normal; no other (ulcers or bleeding) TEETH & GINGIVA: no other (bleeding observed and inflammation present) Eye: COMMON NORMALS: PERRL GENERAL EYE: normal appearance of both eyes SCLERA: sclerae normal PUPIL: Yes PERRL DIRECT OPHTHALMOSCOPY: Yes other (The fundus is not visualized) Neck/C-Spine: GENERAL: Yes trachea midline and No JVD THYROID: not diffusely enlarged CAROTIDS: Yes normal carotid upstroke (and runoff) Chest: COMMONS NORMALS: inspection of chest normal CHEST: No abnormal inspection of the chest Resp: EFFORT & INSPECTION: Yes symmetric chest movement and No uses accessory muscles AUSCULTATION: no crackles, no wheezes and diminished lung sounds bilateral (At the bases) Cardio: COMMON NORMALS: regular rate, S1 normal heart sound and S2 normal heart sound JUGULAR VENOUS DISTENTION: no JVD PALPATION: no heave, no palpable S3, no thrill and other (PMI could not be palpated) RATE: regular r ate HEART SOUNDS: S1 normal, S2 normal, murmur (Short systolic murmur at the left sternal border. No diastolic murmurs. ) and no rubs BRUITS: no abdominal aortic bruits PERIPHERAL PULSES: femoral pulses present positive bilateral (Normal), posterior tibial pulses present positive bilateral (Normal) and dorsalis pedis pulses present positive bilateral (Normal) GI: AUSCULTATION: Yes normoactive bowel sounds and No abdominal bruit PALPATION: No tender, No hepatomegaly, No splenomegaly and No mass Back/Pelvis: GENERAL BACK: No swelling and No other (joint deformities) THORACIC SPINE/UPPER BACK: No kyphosis present LUMBAR SPINE/LOWER BACK: No lumbar scoliosis present Extremity: COMMON NORMALS: negative for no clubbing, cyanosis or edema and negative for no pedal edema NARRATIVE EXTREMITY EXAM: Patient has features of bilateral chronic venous stasis. 1+ edema both lower extremities. No cyanosis. GENERAL: No cyanosis Neuro: COMMON NORMALS: negative for no focal motor deficits SENSORIUM/ORIENTATION: Yes alert MOTOR EXAM: No tremor Psych: MOOD & AFFECT: Yes other (Normal mood and affect) Skin: COMMON NORMALS: skin turgor normal; negative for no petechiae GENERAL SKIN EXAM: turgor normal, skin not dry and no erythema RASHES: rash noted NAILS: normal, no clubbing, not discolored and no other (cyanosis) Urinary Catheter Management^: Torres: Cath Placed During This Visit: no Data Micro: Micro: Microbiology 03/10/19 00:12 Urine Culture - Pr eliminary Urine,Clean Catch Gram Negative R ods 03/09/19 22:39 Blood Culture - Pr eliminary Blood NEGATIVE TO ANDRES E 03/09/19 22:50 Blood Culture - Pr eliminary Blood NEGATIVE TO ANDRES E A&P Assessment and plan (1) Elevated troponin: Most likely this patient had a non-ST elevation myocardial infarction. Hemodynamically seems to be stable. He has moderate ischemia based on the perfusion scan. In view of his multiple comorbidities and also fairly asymptomatic state, it may be appropriate to optimize her medical treatment at this time. His worsening kidney function is a major concern for any interventional procedures. I may start him on Plavix 150 mg p.o. now and in the morning followed by 75 mg p.o. daily. May continue on the other current medications. Status: Acute Code(s): R79.89 - Other specified abnormal findings of blood chemistry (2) Acute on chronic diastolic heart failure: Patient has features of congestive heart failure with preserved systolic function. He may be treated with diuretics on a as needed basis. Status: Acute Code(s): I50.33 - Acute on chronic diastolic (congestive) heart failure (3) Dyslipidemia (high LDL; low HDL): Continue on the current medications. 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 However because of the multiple comorbidities, it may be a prepared to hold off on this for the time being. Try to optimize the medical treatment. Status: Acute Qualifiers: Associated angina: without angina [place] vs. transplanted heart: [place] heart Qualified Code(s): I25.810 - Atherosclerosis of coronary artery bypass graft(s) without angina pectoris Code(s): I25.810 - Atherosclerosis of coronary artery bypass graft(s) without angina pectoris (5) DANIEL (acute kidney injury): Patient has a history of renal failure. The worsening kidney function is a concern. This needs to be closely monitored. Status: Acute Code(s): N17.9 - Acute kidney failure, unspecified (6) HTN (hypertension): Currently has stage II hypertension. The blood pressure seems to be slowly getting under control. Continue to monitor the blood pressure closely. Status: Acute Qualifiers: Hypertension type: essential hypertension Qualified Code(s): I10 - Essential (primary) hypertension Code(s): I10 - Essential (primary) hypertension Additional A&P Information Additional A&P Information: Other problems are Altered mental status, etiology? Degenerative joint disease -chronic back pain and lumbar radiculopathy Hypercalcemia, etiology? Patient has hyperglycemia. 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 transplanted heart: [place] heart DANIEL (acute kidney injury) N17.9 HTN (hypertension) I10 Hypertension type: essential hypertension
--- NOTE | 2019-03-11 14:25 | PC.CHAP ---
Pastoral Care Encounter/Spiritual Assessment Type of Contact [] Declined commission clerk visit [] Patient/Family/Request visit [] Outpatient visit [x] Follow-up visit [] Physician referral [] Code/Alert [] Routine visit [] Staff referral [] Actively dying [] Patient sleeping [] Family support [] [] Out of room [] Palliative care [] [x] Receiving care in room [] Pre-surgical visit [] Trauma [] Long length of stay [] ICU visit [] Other: Relational/Emotional Strength [] Patient feels connected with others/family/visitors/staff [] Distress [] Loneliness/isolation [] Abandonment Spirituality of Patient [] Person of Jaclyn [] Attends Baptism of their Jaclyn [] Believes in Prayer [] Reads Bible or Moravian materials [] There are Spiritual issues to be addressed Charge Auditor Interventions [] Prayer [] Active listening [] Non-anxious presence [] Spiritual/emotional support [] Crisis/trauma care [] Spiritual counseling [] Bereavement support [] Provided bereavement packet [] Provided Bible/devotional materials [] Provided toy/stuffed animal, coloring book to patient or family member [] Completed spiritual assessment [] Provided Communion [] Anointing/[place] [] Salvation [] Other: Impact on Illness or Injury [] Angry [] Fearful [] Anxious [] Often cries [] Exhaustion [] Unable to work [] Unable to attend zoroastrian [] Unable to walk/stand [] Unable to read [] Unable to drive [] Unable to eat/drink [] Unable to sleep [] Unable to be with family [] Other: Summary Room full of medical staff & equipment. Could not visit patient. Time spent with patient 2 min.
[2019-03-11 16:31] LABS: Glucose Point of Care 451 mg/dL (70-110)
--- NOTE | 2019-03-11 17:16 | NMCV_ITS ---
NM MIBI/MIBI Stress/Rest [id number] Yunior Stewart Age: 73 Gender: M : 1945 Exam Date: 03/11/2019 11:28 Ordering Phys: Rolo Turner MD ([email or web address]) Technologist: LASHON Edwards Exam Location: [facility] Indications: CHF, EXACERBATION, PROBABE NON STEMI. HX OF QUADRUPAL BYPASS. STRESS TEST Please see separate stress test report in [facility] for full findings IMAGE PROTOCOL Rest/Stress 1 Lexiscan Day Radiopharmaceutical Dose (mCi) Administration Site Administered by Rest: Tc-99m 10.6 IV LASHON Edwards Stress:Tc-99m 28.7 IV LASHON Edwards Rest: 03/11/2019 60 Discovery 630 Stress: 03/11/2019 60 Discovery 630 0.4mg Lexiscan. Supine position only as patient was unable to lay prone. SPECT RESULTS Technical Quality: Good Raw Data Analysis: Normal, Soft tissue attenuation Image Corrections: No attenuation or motion correction applied Summed Stress Score: 21 Summed Rest Score: 15 Summed Difference Score: 7 PERFUSION FINDINGS Moderate area of severely decreased tracer uptake was noted in the basal ,mid and apical inferior, basal and mid inferolateral, apical lateral, mid anterolateral, mid and apical anterior and LV apex. Diffuse reversibility was noted in these regions FUNCTIONAL RESULTS (calculated via Gated SPECT) Stress Image LV EF (%): 46 Stress EDV (mL):97 TID: 0.98 Stress ESV (mL):52 FUNCTIONAL FINDINGS: Segmental wall motion analysis revealed severe diffuse hypokinesia of the septum and the LV apex. IMPRESSIONS 1. Myocardial perfusion may revealing areas of severely decreases uptake in the inferior wall, inferolateral and apical segments with significant reversibility, suggestive of ischemia in the distribution of predominantly the circumflex and right coronary artery with some involvement of the left anterior descending artery. 2. Diminished LV ejection fraction 46%. 3. LV wall motion analysis revealing diffuse hypokinesia of the septum and the LV apex. 4. Mildly dilated LV cavity with an end-systolic volume of 52 mL. No similar previous studies are available for comparison Dr Rolo Turner MD FAC (Electronically Signed) Final Date: 11 March 2019 18:21 S
[2019-03-11] MEDS: clopidogrel 75 mg Tablet 150 MG PO (20:17)
[2019-03-11 20:40] LABS: Glucose Point of Care 471 mg/dL (70-110)
--- NOTE | 2019-03-11 22:00 | PC.NURSE ---
Upon this nurse's assessment of abdomen, palpation of abdomen reveals abdomen tender to touch on right side of umbilicus. Area slightly hard. Patient states, Yeah, the doctor said something was wrong with my liver.....only hurts a little bit when you press on it. Incontinent of bm. Patient cleaned with CLC performed. Will monitor.
[2019-03-12] VITALS (7 sets, daily range): BP systolic 128–156; BP diastolic 71–84; PULSE 75–107; RESP 16–30; TEMP 36.6–37.2; O2SAT 91–97
[2019-03-12] MEDS: heparin 5,000 unit/mL INJ 1 mL 5000 UNIT SUBCUT ×3 (01:53→17:36)
[2019-03-12] MEDS: cefTRIAXone 1,000 MG in sodium chloride 0.9% (plus) 50 ML 100 MG IV (04:29)
[2019-03-12 07:24] LABS: Glucose Point of Care 338 mg/dL (70-110)
[2019-03-12 09:48] LABS: Basophils % 0.1 %; Hematocrit 43.9 % (42.0-52.0); Hemoglobin 14.2 g/dL (11.7-16.6); Lymphocytes # 0.7 10^3/uL (0.8-4.8); Lymphocytes % 4.2 %; Mean Corpuscular HGB Conc 32.3 g/dL (30.0-36.0); Mean Corpuscular Hemoglobin 27.9 pg (28.0-34.0); Mean Corpuscular Volume 86.2 fL (80-94); Mean Platelet Volume 11.5 fL (7.4-10.4); Monocytes # 0.7 10^3/uL (0.2-0.9); Monocytes % 4.3 %; Neutrophils # 14.8 10^3/uL (1.8-7.7); Nucleated Red Blood Cells % 0 %; Platelet Count 280 10^3/cmm (130-400); Red Blood Count 5.09 10^6/uL (4.1-5.3); Red Cell Distribution Width 13.9 % (12.1-15.1); White Blood Count 16.3 10^3/uL (4.0-10.0)
[2019-03-12] MEDS: clopidogrel 75 mg Tablet 150 MG PO (09:50)
[2019-03-12] MEDS: metoprolol tartrate 25 mg Tablet PO ×2 (09:50→17:36)
[2019-03-12] MEDS: tamsulosin 0.4 mg Capsule PO ×2 (09:50→17:36)
[2019-03-12] MEDS: amlodipine 10 mg Tablet PO (09:50)
[2019-03-12] MEDS: atorvastatin 40 mg Tablet 80 MG PO (09:50)
[2019-03-12] MEDS: aspirin 81 mg Chew Tablet PO (09:50)
[2019-03-12] MEDS: ascorbic acid 500 mg Tablet 1000 MG PO (09:50)
[2019-03-12 10:02] LABS: Alanine Aminotransferase 51 U/L (0-41); Albumin Level 2.4 g/dL (3.5-5.2); Alkaline Phosphatase 163 IU/L (40-130); Anion Gap 20.3 (5-19); Aspartate Amino Transferase 56 U/L (0-40); Blood Urea Nitrogen 69 mg/dL (8-23); Calcium 11.1 mg/Dl (8.8-10.2); Carbon Dioxide 24 mmol/L (22-29); Chloride 86 mmol/L (98-107); Globulin 4.9 g/dL (1.3-4.6); Glucose 442 mg/dL (74-106); Potassium 3.3 mmol/L (3.5-5.1); Sodium 127 mmol/L (136-145); Total Bilirubin 0.5 mg/dL (0.15-1.2); Total Protein 7.3 g/dL (6.6-8.7)
[2019-03-12 11:27] LABS: Glucose Point of Care 437 mg/dL (70-110)
[2019-03-12 12:54] LABS: Glucose Point of Care 427 mg/dL (70-110)
--- NOTE | 2019-03-12 13:04 | XRR_ITS ---
PROCEDURE INFORMATION: Exam: XR Chest, 1 View Exam date and time: 03/12/2019 1:22 PM Age: 73 years old Clinical indication: Other: Chills; Prior surgery; Surgery date: 6+ months; Surgery type: Bypass open heart TECHNIQUE: Imaging protocol: XR of the chest Views: Frontal portable upright view of the chest. COMPARISON: CR XR chest 1V portable [id number] 03/09/2019 10:46 PM FINDINGS: Tubes, catheters and devices: EKG leads are present overlying the chest. Lungs: Moderate pulmonary hypoexpansion. The pulmonary vasculature is exaggerated by inspiratory volume. The lungs are otherwise peripherally clear bilaterally. Pleural space: No pleural effusion. No pneumothorax. Heart/Mediastinum: The heart is normal in size and contour. Coronary ostial markers are present. Mediastinum: Stable. Bones/joints: The patient is status post median sternotomy with intact sternal cerclage wires. XR/XR chest 1V portable [id number] IMPRESSION: 1. Moderate pulmonary hypoexpansion. 2. Otherwise, no acute cardiopulmonary abnormality identified.
--- NOTE | 2019-03-12 14:01 | P.PN_ITS ---
Subjective Subjective: Interval history: Patient continues to have episodes of confusion. Denies any chest pain or shortness of breath. No arrhythmias on the monitor. Vital signs are stable. Medications: Reviewed: Yes Medication Review Details: Active Medications Generic Name Dose Route Start Last Admin Trade Name Freq PRN Reason Stop Dose Admin Amlodipine Besylat e 5 mg 03/10/19 09:00 03/10/19 08:55 Norvasc PO 5 mg DAILY KIOL Administration Ascorbic Acid 1,000 mg 03/10/19 09:00 03/10/19 08:54 Vitamin C PO 1,000 mg DAILY KILO Administration Aspirin 81 mg 03/10/19 09:00 03/10/19 08:55 Aspirin Chewable PO 81 mg DAILY KILO Administration Atorvastatin Calci um 80 mg 03/10/19 09:00 03/10/19 08:55 Lipitor PO 80 mg DAILY KILO Administration Dextrose 25 ml 03/10/19 03:53 D50w IVP ONCE PRN hypoglycemia prot ocol Protocol Dextrose 50 ml 03/10/19 03:53 D50w IVP PRN PRN hypoglycemia prot ocol Protocol Glucagon 1 mg 03/10/19 03:53 Glucagen IM ONCE PRN Adult Acute Hypog lycemia Prot. Protocol Dextrose 500 mls @ 100 mls /hr 03/10/19 03:53 D5w IV ONCE PRN Adult Acute Hypog lycemia Prot Protocol Ceftriaxone Sodium 1,000 mg/ 50 mls @ 100 mls/ hr 03/10/19 04:45 03/10/19 07:23 Sodium Chloride IV Infused Q24H KILO Infusion Protocol Potassium Chloride 40 meq in 100 mls @ 25 mls/hr 03/10/19 09:30 K-Wm IV 03/10/19 17:29 Q4H KILO Insulin Aspart 0 unit 03/10/19 08:00 03/10/19 08:55 Novolog SUBCUT 16 unit WM&BEDTIME KILO Administration Protocol Metoprolol Tartrat e 25 mg 03/10/19 09:00 03/10/19 08:54 Lopressor PO 25 mg BID KILO Administration Tamsulosin HCl 0.4 mg 03/10/19 09:00 03/10/19 08:55 Flomax PO 0.4 mg BID KILO Administration No Known Allergies Allergy (Verified 03/09/19 21:59) Vitals/I&O/Wt Last Vital Signs Temp 98.7 F 03/12/19 11:24 Pulse 75 03/12/19 11:40 Resp 16 03/12/19 11:24 BP 146/80 03/12/19 11:24 Pulse Ox 95 03/12/19 11:40 03/11/19 03/12/19 03/12/19 22:59 06:59 14:59 Intake Total 240 / 240 50 / 290 240 / 240 Output Total 300 / 300 150 / 450 Balance -60 / -60 -100 / -160 240 / 240 Weight last 48 hrs Weight 291 lb 1.6 oz Weight 284 lb 6.4 oz Weight 284 lb 6.4 oz Physical Exam Const: GENERAL APPEARANCE: cooperative, well developed, well hydrated and other (Intermittent episodes of confusion); not in distress HENMT: MOUTH: lip normal; no other (ulcers or bleeding) TEETH & GINGIVA: no other (bleeding observed and inflammation present) Eye: COMMON NORMALS: PERRL GENERAL EYE: normal appearance of both eyes SCLERA: sclerae normal PUPIL: Yes PERRL DIRECT OPHTHALMOSCOPY: Yes other (The fundus is not visualized) Neck/C-Spine: GENERAL: Yes trachea midline and No JVD THYROID: not diffusely enlarged CAROTIDS: Yes normal carotid upstroke (and runoff) Chest: COMMONS NORMALS: inspection of chest normal CHEST: No abnormal inspection of the chest Resp: EFFORT & INSPECTION: Yes symmetric chest movement and No uses accessory muscles AUSCULTATION: no crackles, no wheezes and diminished lung sounds bilateral (At the bases) Cardio: COMMON NORMALS: regular rate, S1 normal heart sound and S2 normal heart sound JUGULAR VENOUS DISTENTION: no JVD PALPATION: no heave, no palpable S3, no thrill and other (PMI could not be palpated) RATE: regular rate HEART SOUNDS: S1 normal, S2 normal, murmur (Short systolic murmur at the left sternal border. No diastolic murmurs. ) and no rubs BRUITS: no abdominal aortic bruits PERIPHERAL PULSES: femoral pulses present positive bilateral (Normal), posterior tibial pulses present positive bilateral (Normal) and dorsalis pedis pulses present positive bilateral (Normal) GI: AUSCULTATION: Yes normoactive bowel sounds and No abdominal bruit PALPATION: No tender, No hepatomegaly, No splenomegaly and No mass Back/Pelvis: GENERAL BACK: No swelling and No other (joint deformities) THORACIC SPINE/UPPER BACK: No kyphosis present LUMBAR SPINE/LOWER BACK: No lumbar scoliosis present Extremity: COMMON NORMALS: negative for no clubbing, cyanosis or edema and negative for no pedal edema NARRATIVE EXTREMITY EXAM: Patient has features of bilateral chronic venous stasis. 1+ edema both lower extremities. No cyanosis. GENERAL: No cyanosis Neuro: COMMON NORMALS: negative for no focal motor deficits MOTOR EXAM: No tremor Psych: MOOD & AFFECT: Yes other (Normal mood and affect) Skin: COMMON NORMALS: skin turgor normal; negative for no petechiae GENERAL SKIN EXAM: turgor normal, skin not dry and no erythema RASHES: rash noted NAILS: normal, no clubbing, not discolored and no other (cyanosis) Urinary Catheter Management^: Torres: Cath Placed During This Visit: no Data Micro: Micro: Microbiology 03/10/19 00:12 Urine Culture - Pr eliminary Urine,Clean Catch Gram Negative R ods A&P Assessment and plan (1) Elevated troponin: Most likely this patient had a non-ST elevation myocardial infarction. Hemodynamically seems to be stable. He has moderate ischemia based on the perfusion scan. In view of his multiple comorbidities and also fairly asymptomatic state, it may be appropriate to optimize her medical treatment at this time. His worsening kidney function is a major concern for any interventional procedures. Continue on the Plavix and other medications Status: Acute Code(s): R79.89 - Other specified abnormal findings of blood chemistry (2) Acute on chronic diastolic heart failure: Patient has features of congestive heart failure with preserved systolic function. He may be treated with diuretics on a as needed basis. Status: Acute Code(s): I50.33 - Acute on chronic diastolic (congestive) heart failure (3) Dyslipidemia (high LDL; low HDL): Continue on the current medications. 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 However because of the multiple comorbidities, it may be a prepared to hold off on this for the time being. Try to optimize the medical treatment. I discussed with the patient's today. According to the , the decision is primarily taken by the patient Status: Acute Qualifiers: [place] vs. transplanted heart: [place] heart Associated angina: without angina Qualified Code(s): I25.810 - Atherosclerosis of coronary artery bypass graft(s) without angina pectoris Code(s): I25.810 - Atherosclerosis of coronary artery bypass graft(s) without angina pectoris (5) DANIEL (acute kidney injury): Patient has a history of renal failure. The worsening kidney function is a concern. This needs to be closely monitored. Patient may benefit from a nephrology input Status: Acute Code(s): N17.9 - Acute kidney failure, unspecified (6) HTN (hypertension): BUN/creatinine is going up. The etiology is not clear. This needs to be further evaluated Status: Acute Qualifiers: Hypertension type: essential hypertension Qualified Code(s): I10 - Essential (primary) hypertension Code(s): I10 - Essential (primary) hypertension Additional A&P Information Other problems are Altered mental status, etiology? Degenerative joint disease -chronic back pain and lumbar radiculopathy Hypercalcemia, etiology? Patient has hyperglycemia. Low albumin Leukocytosis I had discussions with the patient and his . Considering his worsening kidney function, we may hold off on any invasive cardiac procedures at this point. Since he has no chest pain or any other specific cardiac symptoms, it might be appropriate to optimize her medical treatment at this time. 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 transplanted heart: [place] heart Associated angina: without angina DANIEL (acute kidney injury) N17.9 HTN (hypertension) I10 Hypertension type: essential hypertension
--- NOTE | 2019-03-12 14:12 | P.CONIM_ITS ---
Providers/Reason For Consult Consulting Physican/Specialty*: telenephrology- farheen anand md Reason for Consult*: addison, hypercalcemia, AMS Attending Physician: Thee Guzman Primary Care Provider: Enzo Grover DO History of Present Illness History of Present Illness Yunior Stewart is a 73 year old male w/ dm, htn, obesity. Pt was admitted w/ AMS, UTI, progressive renal failure, NSTEMI.- pt was treated w/ abx, ivf. pt developed sob- ivf stopped, started on lasix- he is oliguric and lethargic- renal was called to consult. Review of Systems Const: Reports: change in appetite, fatigue, malaise and change in sleep pattern Card: Reports: shortness of breath when lying down Resp: Reports: shortness of breath : Reports: difficulty urinating, urinary hesitancy, urinary dribbling, change in urine stream and urinary incontinence Neuro: Reports: headache, weakness in extremities and slurred speech Meds/Allergies Home Medications and Allergies Home Medications Medication Instructions Recorded Confirmed Type amlodipine [Norvasc] 5 mg PO DAILY 03/09/19 03/09/19 History ascorbic acid (vitamin C) [Vitamin 1 g PO DAILY 03/09/19 03/09/19 History C] aspirin 81 mg PO DAILY 03/09/19 03/09/19 History atorvastatin [Lipitor] 80 mg PO DAILY 03/09/19 03/09/19 History furosemide [Lasix] 40 mg PO DAILY 03/09/19 03/09/19 History methenamine hippurate [Hiprex] 1 g PO BID 03/09/19 03/09/19 History metoprolol tartrate 25 mg PO BID 03/09/19 03/09/19 History tamsulosin [Flomax] 0.4 mg PO BID 03/09/19 03/09/19 History Allergies Allergy/AdvReac Type Severity Reaction Status Date / Time No Known Allergies Allergy Verified 03/09/19 21:59 Current Medications Current Medications Generic Name Dose Route Start Last Admin Trade Name Freq PRN Reason Stop Dose Admin Acetaminophen 650 mg 03/10/19 19:23 03/10/19 19:36 Tylenol PO 650 mg Q6H PRN Administration MILD PAIN Amlodipine Besylate 10 mg 03/11/19 09:00 03/12/19 09:50 Norvasc PO 10 mg DAILY KILO Administration Ascorbic Acid 1,000 mg 03/10/19 09:00 03/12/19 09:50 Vitamin C PO 1,000 mg DAILY KILO Administration Aspirin 81 mg 03/10/19 09:00 03/12/19 09:50 Aspirin Chewable PO 81 mg DAILY KILO Administration Atorvastatin Calcium 80 mg 03/10/19 09:00 03/12/19 09:50 Lipitor PO 80 mg DAILY KILO Administration Furosemide 40 mg 03/10/19 16:30 03/11/19 04:44 Lasix IVP Not Given Q12H KILO Heparin Sodium (Beef Lung) 5,000 unit 03/11/19 10:00 03/12/19 09:50 Heparin SUBCUT 5,000 unit Q8H KILO Administration Ceftriaxone Sodium 1,000 mg/ 50 mls @ 100 mls/hr 03/10/19 04:45 03/12/19 05:13 Sodium Chloride IV Infused Q24H KILO Infusion Protocol Insulin Aspart 0 unit 03/10/19 08:00 03/12/19 12:53 Novolog SUBCUT 16 unit WM&BEDTIME KILO Administration Protocol Metoprolol Tartrate 25 mg 03/10/19 09:00 03/12/19 09:50 Lopressor PO 25 mg BID KILO Administration Tamsulosin HCl 0.4 mg 03/10/19 09:00 03/12/19 09:50 Flomax PO 0.4 mg BID KILO Administration PFSH Acute PFSH: Statuses (acute, chronic, etc) shown below reflect problem list status as previously entered and may not be historically accurate Medical History (Updated 03/10/19 @ 17:09 by Rolo Turner MD) Acute on chronic diastolic heart failure (Acute) 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002 kg Weight 129.002 kg Physical Exam Narrative: EXAM NARRATIVE: obese man confused, vss heent- nc/t, eomi, anicteric neck supple lungs- b/l rales and ronchi heart reg, +TEJA abd soft+BS ext b/l edema neuro- confused, weak Urinary Catheter Management^: Torres: Cath Placed During This Visit: no A&P Additional A&P Information 1. ADDISON- cr slowly rising since admission of 1.6 mg/dl- likely ATN -check ua, serologies. evaluate for a renal -pulm syndrome -check spep/sife -check renal us -check abg 2. hyponatremia-check ur na, ur cr -tsh, cortisol -free water restrict -likely from chf and addison 3. ami- per cardiology 4. uti- leukocytosis persists even on abx 5. hyperglycemia- poorly controlled dm 6. hypokalemia 7. AMS- check abg, ammonia -repeat chem7- if pt is not improving, would start HD soon. this would also allow for cardiac cath Consult Attestations 2 Medical Necessity Statement: addison, ams, nstemi, hypercalcemia Time Spent in Patient Care: Greater than 35 minutes (>than 50% of time spent in counselling and/or direct pt care on unit) . Coding Level of Care Code Acute Carbon Lamp Cleaner for Rebeka Chowdhury
[2019-03-12 15:57] LABS: Anion Gap 21.2 (5-19); Blood Urea Nitrogen 75 mg/dL (8-23); Calcium 11.2 mg/Dl (8.8-10.2); Carbon Dioxide 23 mmol/L (22-29); Chloride 88 mmol/L (98-107); Creatine Phosphokinase 34 U/L (39-308); Glucose 379 mg/dL (74-106); Potassium 3.2 mmol/L (3.5-5.1); Sodium 129 mmol/L (136-145); Uric Acid 9.8 mg/dL (3.4-7.0)
[2019-03-12 15:58] LABS: Ammonia 73 umol/L (16-60)
--- NOTE | 2019-03-12 16:04 | PC.CHAP ---
Pastoral Care Encounter/Spiritual Assessment Type of Contact [] Declined steam press operator visit [] Patient/Family/Request visit [] Outpatient visit [] Follow-up visit [] Physician referral [] Code/Alert [] Routine visit [] Staff referral [] Actively dying [] Patient sleeping [] Family support [] [] Out of room [] Palliative care [] [] Receiving care in room [] Pre-surgical visit [] Trauma [] Long length of stay [] ICU visit [] Other: Relational/Emotional Strength [x] Patient feels connected with others/family/visitors/staff [] Distress [] Loneliness/isolation [] Abandonment Spirituality of Patient [x] Person of Jaclyn [] Attends Adventism of their Jaclyn [x] Believes in Prayer [x] Reads Bible or Druze materials [] There are Spiritual issues to be addressed Shift Supervisor Melting Interventions [] Prayer [] Active listening [] Non-anxious presence [] Spiritual/emotional support [] Crisis/trauma care [] Spiritual counseling [] Bereavement support [] Provided bereavement packet [] Provided Bible/devotional materials [] Provided toy/stuffed animal, coloring book to patient or family member [] Completed spiritual assessment [] Provided Communion [] Anointing/[place] [] Salvation [] Other: Impact on Illness or Injury [x] Angry [] Fearful [] Anxious [] Often cries [] Exhaustion [] Unable to work [] Unable to attend gnosticism [] Unable to walk/stand [] Unable to read [] Unable to drive [] Unable to eat/drink [] Unable to sleep [] Unable to be with family [] Other: Summary feels alright with family there is able to answer questions but when famly goes ho0me he sleeps francisco agrue Time spent with patient
[2019-03-12 16:25] LABS: Free T4 Free Thyroxine 1.23 ng/dL (0.82-1.77); Thyroid Stimulating Hormone 0.37 uIU/mL (0.27-4.20)
[2019-03-12 16:32] LABS: Hepatitis B Surface AB. 31.3 (0-8.5); Hepatitis B Surface Antigen. Non-Reactive (Nonreactive)
[2019-03-12 16:34] LABS: Complement C3 149 mg/dL (90-180)
[2019-03-12 16:43] LABS: Parathyroid Hormone 104.6 pg/mL (15-65)
[2019-03-12 16:56] LABS: Glucose Point of Care 323 mg/dL (70-110)
[2019-03-12 17:02] LABS: 25 Hydroxy Vitamin D 10 ng/mL (30-100)
[2019-03-12] MEDS: FUROsemide 10 mg/mL SDV 10mL 60 MG IVP (17:37)
[2019-03-12 18:47] LABS: Anion Gap 21.2 (5-19); Blood Urea Nitrogen 78 mg/dL (8-23); Carbon Dioxide 23 mmol/L (22-29); Chloride 87 mmol/L (98-107); Glucose 381 mg/dL (74-106); Potassium 3.2 mmol/L (3.5-5.1); Sodium 128 mmol/L (136-145)
--- NOTE | 2019-03-12 19:14 | PM.PN ---
Subjective Subjective: Interval history: This morning he appears slightly more disoriented. Was still participating in conversation. Expressed concern about his kidney function. Was not having significant chest pain. Vitals/I&O/Wt Last Vital Signs Temp 97.9 F 03/12/19 16:00 Pulse 107 H 03/12/19 16:00 Resp 30 H 03/12/19 16:00 BP 129/71 03/12/19 16:00 Pulse Ox 91 03/12/19 16:00 03/12/19 03/12/19 03/12/19 06:59 14:59 22:59 Intake Total 50 / 290 240 / 240 Output Total 150 / 450 300 / 300 Balance -100 / -160 240 / 240 -300 / -60 Weight last 48 hrs Weight 132.041 kg Weight 129.002 kg Weight 129.002 kg Physical Exam Const: COMMON NORMALS: no apparent distress and oriented x3 HENMT: COMMON NORMALS: oropharynx normal Resp: COMMON NORMALS: normal respiratory effort AUSCULTATION: crackles (Few at left base) Cardio: COMMON NORMALS: regular rhythm, S1 normal heart sound, S2 normal heart sound and no murmurs RHYTHM: regular rhythm HEART SOUNDS: S1 normal and S2 normal OTHER: Old sternotomy scar GI: COMMON NORMALS: normal to inspection, nondistended, normoactive bowel sounds, soft to palpation and non-tender PALPATION: Yes soft Extremity: COMMON NORMALS: no joint enlargement GENERAL: Yes edema (Trace bilateral) Neuro: COMMON NORMALS: oriented x3 and moves all extremities Skin: COMMON NORMALS: no rashes or lesions noted GENERAL SKIN EXAM: no rashes or lesions noted Urinary Catheter Management^: Torres: Cath Placed During This Visit: no Data Micro: Micro: Microbiology 03/10/19 00:12 Urine Culture - Fi nal Urine,Clean Catch Serratia marces cens A&P Assessment and plan (1) NSTEMI (non-ST elevated myocardial infarction): Continues on medical therapy. Additional assessment and management limited by decline in renal function. Status: Acute Code(s): I21.4 - Non-ST elevation (NSTEMI) myocardial infarction (2) DANIEL (acute kidney injury): This morning labs were delayed, but subsequently with creatinine noted increased up to 5.4. Will request renal ultrasound. Torres draining. Noted in bed between his legs. Will request it be hung at the side of bed. Nephrology recommendations appreciated. He reports chronic kidney disease stage III. His baseline is difficult to find, although back in November 2016 had acute kidney injury with loss creatinine of 3.2. For now further diuretic as he is perhaps achieving euvolemia. Creatinine up to 3.1. Currently trace if any pedal edema. Recent renal ultrasound done in 07/2018 showing marked prostate gland enlargement and urinary bladder wall hypertrophy. Continue Flomax. Continue follow-up with urology after discharge. Status: Acute Code(s): N17.9 - Acute kidney failure, unspecified (3) Hyperglycemia: Add 10 units Lantus nightly. Change sliding scale to aggressive. Consistent carbohydrate diet. Status: Acute Code(s): R73.9 - Hyperglycemia, unspecified (4) Altered mental status: Today morning was slightly more confused, but progressively 3 today with worsening of mental status, more somnolent. Worsening of renal function. Concern for progression to uremia. Persistent leukocytosis, although today better at 16.3. Does have UTI with gram-negative rods. Serratia, sensitive to ceftriaxone. Medications reviewed for anything that may be contributing to encephalopathy. This appears to be improving. He is oriented x3. Does admit to having some issues with his memory recently. Suspected multifactorial secondary to acute encephalopathy with complicated urinary tract infection, hypoxia secondary to CHF. Possibly with contribution from severe hyperglycemia, although DKA was not suspected. He denies any headache, photosensitivity, neck pain or stiffness. Status: Acute Qualifiers: Altered mental status type: somnolence Qualified Code(s): R40.0 - Somnolence Code(s): R41.82 - Altered mental status, unspecified (5) UTI (urinary tract infection): Serratia sensitive to Rocephin. Suspected complicated urinary tract infection with acute encephalopathy on presentation. Fever reaolved. Has history of urinary retention, BPH, urinary bladder wall thickening. Performs straight catheterization at home. Monitor for retention. Continue Flomax. Continue follow-up with urology after discharge. Status: Acute Qualifiers: Urinary tract infection type: acute cystitis Hematuria presence: with hematuria Qualified Code(s): N30.01 - Acute cystitis with hematuria Code(s): N39.0 - Urinary tract infection, site not specified (6) HTN (hypertension): Blood pressure is closer to goal today. Continue to monitor. Resume low-sodium diet after stress test. Status: Acute Qualifiers: Hypertension type: essential hypertension Qualified Code(s): I10 - Essential (primary) hypertension Code(s): I10 - Essential (primary) hypertension Additional A&P Information Mild hypokalemia: replace BPH, on Flomax Morbid obesity: BMI-39 kg/m2 NIDDM type II; as above Hyperlipidemia; on statin Fecal incontinence? Attestations Medical Necessity Statement*: Continue admission for assessment management of non-STEMI, acute kidney injury, acute encephalopathy. Coding Level of Care Code Acute Financial Recruiter for Chg Fwd Diagnoses NSTEMI (non-ST elevated myocardial infarction) I21.4 DNAIEL (acute kidney injury) N17.9 Hyperglycemia R73.9 Altered mental status R40.0 Altered mental status type: somnolence UTI (urinary tract infection) N30.01 Urinary tract infection type: acute cystitis Hematuria presence: with hematuria HTN (hypertension) I10 Hypertension type: essential hypertension
[2019-03-12 21:11] LABS: Glucose Point of Care 333 mg/dL (70-110)
--- NOTE | 2019-03-12 21:48 | PC.NURSE ---
During patient's assessment, this nurse noted patient was diaphoretic and flushed. Denies pain. Just feel bertha blah. 40meq of Potassium given at beginning of shift as ordered. Patient slow to respond and take medications. Fluids encouraged. Did reposition to right side after explaining to patient why staff was turning him. Patient afebrile. Cool washcloth placed on forehead. Will continue to monitor.
[2019-03-12] MEDS: insulin glargine 100 units/1 mL 10 UNIT SUBCUT (21:55)
--- NOTE | 2019-03-12 22:32 | PC.NURSE ---
Repositioned to supine position. Tolerated fair. Will monitor. Skin w/d at this time. Denies pain at present.
[2019-03-13] VITALS: BP 130/66; PULSE 86; RESP 21; O2SAT 93
[2019-03-13] MEDS: heparin 5,000 unit/mL INJ 1 mL 5000 UNIT SUBCUT ×3 (02:32→17:56)
[2019-03-13 04:00] VITALS: BP 124/69; PULSE 80; RESP 20; TEMP 36.3; O2SAT 94
[2019-03-13] MEDS: cefTRIAXone 1,000 MG in sodium chloride 0.9% (plus) 50 ML 100 MG IV (04:47)
[2019-03-13] MEDS: FUROsemide 10 mg/mL SDV 10mL 60 MG IVP (05:18)
[2019-03-13 05:49] LABS: Basophils % 0.2 %; Hematocrit 41.5 % (42.0-52.0); Hemoglobin 13.3 g/dL (11.7-16.6); Lymphocytes # 0.5 10^3/uL (0.8-4.8); Mean Corpuscular Hemoglobin 29.1 pg (28.0-34.0); Mean Corpuscular Volume 90.8 fL (80-94); Mean Platelet Volume 11.5 fL (7.4-10.4); Monocytes # 0.7 10^3/uL (0.2-0.9); Monocytes % 2.9 %; Neutrophils # 21.7 10^3/uL (1.8-7.7); Neutrophils % 94.3 %; Nucleated Red Blood Cells % 0 %; Platelet Count 317 10^3/cmm (130-400); Red Blood Count 4.57 10^6/uL (4.1-5.3); Red Cell Distribution Width 14.3 % (12.1-15.1)
--- NOTE | 2019-03-13 07:00 | US_ITS ---
WS: [id number] RENAL ULTRASOUND HISTORY: DANIEL COMPARISON: 08/22/2018 TECHNIQUE: 2-D and color Doppler imaging of the kidney submitted. Right kidney: 12.6 cm x 6.9 cm x 7.8 cm. Kidney is slightly enlarged. There is mild hydronephrosis with no cortical thinning. No solid mass. C ortical cyst with a maximum diameter 1.4 cm in the mid kidney. Left kidney: 12.8 cm x 6.1 cm x 7.3 cm. Slightly enlarged kidney. There is moderate hydronephrosis. No solid mass. Aorta: Not well visualized. Urinary Bladder: Urinary bladder is markedly distended. There is debris in the posterior, dependent b ladder. No increased vascularity. By history patient has a Torres catheter present. This Torres cathete r is not identified. US/US renal BI with bladder IMPRESSION: 1. Bilateral hydronephrosis, moderate on the LEFT and mild on the RIGHT. 2. Markedly distended urinary bladder with debris in the dependent urinary mariel dder. 3. As per history there is a Torres catheter present. Catheter is not identifie d in the urinary bladder. Recommend reevaluation of Torres catheter placement.
--- NOTE | 2019-03-13 07:34 | P.PN_ITS ---
Subjective Subjective: Interval history: confused, weak, no sob. + hematuria. poor appetite. no n/v/d Medications: Reviewed: Yes Vitals/I&O/Wt Last Vital Signs Temp 97.4 F L 03/13/19 04:00 Pulse 80 03/13/19 04:00 Resp 20 H 03/13/19 04:00 BP 124/69 03/13/19 04:00 Pulse Ox 94 03/13/19 04:00 03/12/19 03/13/19 03/13/19 22:59 06:59 14:59 Intake Total 120 / 360 410 / 770 Output Total 300 / 300 Balance -180 / 60 410 / 470 Weight last 48 hrs Weight 131.723 kg Weight 132.041 kg Physical Exam Narrative: EXAM NARRATIVE: obese, comfortable in bed, NARD heent- nc/at, eomi, anicteric neck supple lungs crackles and dull bases heart reg, +TEJA abd soft, nt, nd, +BS wyman w/ clots ext 1+ edema neuro- a,a, o x 1-2 Urinary Catheter Management^: Wyman: Cath Placed During This Visit: no Data Micro: Micro: Microbiology 03/10/19 00:12 Urine Culture - Fi nal Urine,Clean Catch Serratia marces cens A&P Additional A&P Information 73 yr old man obesity, htn, dm, NSTEMI, addison 1. addison- obstruction +/- atn. cr rising since admission. -currently w/ hematuria -agree w/ CBI and urology eval -await renal us 2. based on uop- consider fluids and lasix 3. uncontrolled dm 4. uti- leukpcytosis persists- renal dose abx 5. hyponatremia- from renal failure- check tsh 6. hypokalemia- monitor w/ oliguric renal failure 7. vit d depletion- replete -repeat pth in 8 weeks 8. hypercalcemia from addison and vut d depletion 9. inc ammonia and inc lft's- consider lactulose as per hospitalist Attestations Medical Necessity Statement*: addison, hematuria, electolytes abnormalities, anemia, hypercalcemia, uti, ams Coding Level of Care Code Acute Early Childhood Assistant for Rebeka Chowdhury
[2019-03-13 08:04] LABS: Glucose Point of Care 326 mg/dL (70-110)
--- NOTE | 2019-03-13 08:45 | PC.SOCIAL ---
IMM Page 2 of IMM explained to and signed by patient. He verbalizes understanding. Initialed, dated, and timed and placed in chart. Copy provided to patient.
[2019-03-13 09:01] LABS: Alanine Aminotransferase 58 U/L (0-41); Albumin Level 2.4 g/dL (3.5-5.2); Alkaline Phosphatase 209 IU/L (40-130); Anion Gap 21.7 (5-19); Aspartate Amino Transferase 52 U/L (0-40); Calcium 10.6 mg/Dl (8.8-10.2); Carbon Dioxide 22 mmol/L (22-29); Chloride 89 mmol/L (98-107); Globulin 4.1 g/dL (1.3-4.6); Glucose 382 mg/dL (74-106); Potassium 3.7 mmol/L (3.5-5.1); Sodium 129 mmol/L (136-145); Total Bilirubin 0.5 mg/dL (0.15-1.2); Total Protein 6.5 g/dL (6.6-8.7)
[2019-03-13] MEDS: aspirin 81 mg Chew Tablet PO (09:03)
[2019-03-13] MEDS: atorvastatin 40 mg Tablet 80 MG PO (09:03)
[2019-03-13] MEDS: ascorbic acid 500 mg Tablet 1000 MG PO (09:03)
[2019-03-13] MEDS: clopidogrel 75 mg Tablet PO (09:04)
[2019-03-13] MEDS: amlodipine 10 mg Tablet 5 MG PO (09:04)
[2019-03-13] MEDS: metoprolol tartrate 25 mg Tablet PO ×2 (09:04→17:56)
[2019-03-13] MEDS: tamsulosin 0.4 mg Capsule PO ×2 (09:04→17:56)
[2019-03-13 09:26] LABS: Blood Urea Nitrogen 93 mg/dL (8-23)
[2019-03-13] MEDS: morphine 4 mg/mL SDV 1 mL 2 MG IVP (09:28)
--- NOTE | 2019-03-13 10:14 | PM.CONSULT ---
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 He was last seen by me in clinic in December 2018 and was doing well with [facility] program overall with performance of catheterization about 3 times per day. He had been placed on methenamine for recurrent UTIs and that seemed to be helping reducing his risk of recurrent symptomatic UTIs. He did notice that double voiding yielded some extra volume but not enough to stop self-catheterization. He was to continue his current program as described above and follow-up in roughly 6 months. Regarding this current hospitalization: Presented somewhat obtunded to the emergency department on 03/09/2019. No one was available to provide much information for him. He was complaining of shortness of breath but the rest of the history was essentially unobtainable. White count was elevated at 12.8. Creatinine was 1.6. Glucose was 538. He was hyponatremic. Was found to be in fluid overload. Was admitted for UTI probable sepsis along with other multiple problems including hypoxia shortness of breath acute kidney injury. At some point a catheter was placed. Creatinine continued to rise and this morning was 5.8. Glucoses were consistently elevated. This morning RENAL ULTRASOUND was performed showing bilateral hydronephrosis with moderate on the left and mild on the right with marked bladder distention and some debris in the bladder. The Torres catheter that was in place was not identified in the bladder. (He did have some urine output but it was low. The catheter was replaced but did not reveal any urine output of consequence. Because he did have some blood in the previous catheter it was presumed that he was in clot retention and irrigation was unsuccessful in clearing the clots. I was consulted for evaluation of these problems. On physical exam his bladder was palpably distended. The catheter was irrigated with no significant return and it was decided to perform a bedside cystoscopy. PROCEDURE NOTE CYSTOSCOPY/difficult catheter placement 2% lidocaine jelly, verbal informed consent obtained, routine prep. Findings: The urethra was normal from the meatus to the membranous urethra. In the prostatic fossa there appeared to be some trauma on the posterior aspect which was consistent with a false passage. There is no active severe bleeding. The scope was manipulated anteriorly and was able to be easily passed into the bladder. There were no large clots seen in the bladder but it was a difficult exam due to the cloudiness of the urine. A flexible guidewire was then passed through the scope and a 20 [place] tip catheter was advanced over the guidewire after scope removal into the bladder with immediate return. Greater than 1000 cc of urine mostly bloody was drained. There was thick purulent sediment at the completion of drainage. Instructions given to irrigate the catheter to clear the debris to avoid risk of catheter obstruction. Recommend maintaining the Torres catheter throughout the hospital stay to allow healing of the false passage. I will manage the catheter on outpatient basis after he recovers. Expectation is that his renal function will dramatically improve after appropriate drainage and as well so will his infection for the same reason. Review of Systems Const: Reports: fatigue and malaise Eyes: Denies: yellow eyes Card: Denies: palpitations Resp: Denies: productive cough GI: Reports: abdominal pain : Reports: urinary incontinence and blood in urine Musc: Denies: redness, joint warmth or deformity Skin/Breast: Denies: rash or yellow skin Neuro: Reports: confusion and behavioral changes; Denies: headache Psych: Reports: memory loss Endo: Denies: excessive thirst Mauri/Lymph: Reports: other (Gross hematuria.); Denies: easy bruising All/Imm: Denies: hives Meds/Allergies Home Medications and Allergies Home Medications Medication Instructions Recorded Confirmed Type amlodipine [Norvasc] 5 mg PO DAILY 03/09/19 03/09/19 History ascorbic acid (vitamin C) [Vitamin 1 g PO DAILY 03/09/19 03/09/19 History C] aspirin 81 mg PO DAILY 03/09/19 03/09/19 History atorvastatin [Lipitor] 80 mg PO DAILY 03/09/19 03/09/19 History furosemide [Lasix] 40 mg PO DAILY 03/09/19 03/09/19 History methenamine hippurate [Hiprex] 1 g PO BID 03/09/19 03/09/19 History metoprolol tartrate 25 mg PO BID 03/09/19 03/09/19 History tamsulosin [Flomax] 0.4 mg PO BID 03/09/19 03/09/19 History Allergies Allergy/AdvReac Type Severity Reaction Status Date / Time No Known Allergies Allergy Verified 03/09/19 21:59 Current Medications Current Medications Generic Name Dose Route Start Last Admin Trade Name Freq PRN Reason Stop Dose Admin Acetaminophen 650 mg 03/10/19 19:23 03/10/19 19:36 Tylenol PO 650 mg Q6H PRN Administration MILD PAIN Amlodipine Besylate 5 mg 03/13/19 09:00 03/13/19 09:04 Norvasc PO 5 mg DAILY KILO Administration Ascorbic Acid 1,000 mg 03/10/19 09:00 03/13/19 09:03 Vitamin C PO 1,000 mg DAILY KILO Administration Aspirin 81 mg 03/10/19 09:00 03/13/19 09:03 Aspirin Chewable PO 81 mg DAILY KILO Administration Atorvastatin Calcium 80 mg 03/10/19 09:00 03/13/19 09:03 Lipitor PO 80 mg DAILY KILO Administration Clopidogrel Bisulfate 75 mg 03/13/19 09:00 03/13/19 09:04 Plavix PO 75 mg DAILY KILO Administration Furosemide 40 mg 03/10/19 16:30 03/11/19 04:44 Lasix IVP Not Given Q12H KILO Furosemide 60 mg 03/12/19 17:15 03/13/19 05:18 Lasix IVP 60 mg Q12H KILO Administration Heparin Sodium (Beef Lung) 5,000 unit 03/11/19 10:00 03/13/19 02:32 Heparin SUBCUT 5,000 unit Q8H KILO Administration Ceftriaxone Sodium 1,000 mg/ 50 mls @ 100 mls/hr 03/10/19 04:45 03/13/19 05:18 Sodium Chloride IV Infused Q24H [facility] Infusion Protocol Insulin Aspart 0 unit 03/12/19 21:00 03/13/19 09:03 Novolog SUBCUT 14 unit WM&BEDTIME KILO Administration Protocol Insulin Glargine 10 unit 03/12/19 21:00 03/12/19 21:55 Lantus SUBCUT 10 unit BEDTIME KILO Administration Metoprolol Tartrate 25 mg 03/10/19 09:00 03/13/19 09:04 Lopressor PO 25 mg BID KILO Administration Morphine Sulfate 2 mg 03/13/19 09:17 03/13/19 09:28 Morphine IVP 2 mg Q4H PRN Administration SEVERE PAIN Tamsulosin HCl 0.4 mg 03/10/19 09:00 03/13/19 09:04 Flomax PO 0.4 mg BID KILO Administration PFSH Acute PFSH: Statuses (acute, chronic, etc) shown below reflect problem list status as previously entered and may not be historically accurate Medical History Acute bilateral obstructive uropathy (Acute) Acute on chronic diastolic heart failure (Acute) 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) Detrusor dysfunction (Chronic) Dyslipidemia (high LDL; low HDL) (Acute) Hydronephrosis, bilateral (Acute) Self-catheterizes urinary bladder (Chronic) Urinary retention (Acute) Surgical History History of open heart surgery (Acute) 20 years ago in [place] Family History (Updated 03/13/19 @ 10:46 by Evan Baze MD) Other Dementia Social History Smoking and tobacco status: never smoked Vitals/I&O/Wt Last Vital Signs Temp 97.4 F L 03/13/19 04:00 Pulse 80 03/13/19 04:00 Resp 20 H 03/13/19 04:00 BP 124/69 03/13/19 04:00 Pulse Ox 94 03/13/19 04:00 03/12/19 03/13/19 03/13/19 22:59 06:59 14:59 Intake Total 120 / 360 410 / 770 Output Total 300 / 300 Balance -180 / 60 410 / 470 Weight last 48 hrs Weight 290 lb 6.4 oz Weight 291 lb 1.6 oz Physical Exam Const: COMMON NORMALS: negative for healthy appearing GENERAL APPEARANCE: cooperative, lethargic and ill appearing ORIENTATION/CONSCIOUSNESS: Yes confused and Yes lethargic HENMT: COMMON NORMALS: normocephalic and head/scalp atraumatic HEAD & SCALP: normocephalic and atraumatic Eye: COMMON NORMALS: conjunctivae normal and no scleral icterus CONJUNCTIVA: Yes conjunctivae normal Neck/C-Spine: COMMON NORMALS: full ROM and no lymphadenopathy Resp: COMMON NORMALS: normal respiratory effort EFFORT & INSPECTION: No tachypneic and No respiratory distress Extremity: NARRATIVE EXTREMITY EXAM: No cyanosis or clubbing Neuro: COMMON NORMALS: moves all extremities SENSORIUM/ORIENTATION: Yes lethargic Psych: COMMON NORMALS: cooperative; negative for mental status grossly normal ATTITUDE: Yes calm THOUGHT PROCESS: confused Skin: COMMON NORMALS: no wounds, skin turgor normal and no jaundice GENERAL SKIN EXAM: turgor normal Urinary Catheter Management^: Torres: Cath Placed During This Visit: no Urethral Indwelling: Yes Data Micro: Micro: Microbiology 03/10/19 00:12 Urine Culture - Fi nal Urine,Clean Catch Serratia marces cens Other Data: Other data: I did look at his ultrasound A&P Assessment and plan (1) UTI (urinary tract infection): Exacerbated by poorly drained bladder. Chronic history of recurrent urinary tract infections maintained on METHENAMINE HIPPURATE with acute exacerbation based on findings this admission Status: Chronic Qualifiers: Hematuria presence: with hematuria Urinary tract infection type: acute cystitis Qualified Code(s): N30.01 - Acute cystitis with hematuria Code(s): N39.0 - Urinary tract infection, site not specified (2) Detrusor dysfunction: Status: Chronic Code(s): N31.8 - Other neuromuscular dysfunction of bladder (3) Hydronephrosis, bilateral: Associated with bladder distention from poorly drained bladder; patient with chronic neurogenic/detrusor dysfunction-related chronic urinary retention Status: Acute Code(s): N13.30 - Unspecified hydronephrosis (4) Self-catheterizes urinary bladder: Status: Chronic Code(s): Z78.9 - Other specified health status (5) Acute bilateral obstructive uropathy: Status: Acute Code(s): N13.9 - Obstructive and reflux uropathy, unspecified Consult Attestations Medical Necessity Statement: Critically ill needs to be managed on an inpatient basis Coding Level of Care Code Acute Hadoop Developer for Chg Fwd History Comprehensive Exam Detailed Medical Decision Making High Complexity Diagnoses UTI (urinary tract infection) N30.01 Hematuria presence: with hematuria Urinary tract infection type: acute cystitis Detrusor dysfunction N31.8 Hydronephrosis, bilateral N13.30 Self-catheterizes urinary bladder Z78.9 Acute bilateral obstructive uropathy N13.9 Comment Bedside cystoscopy and difficult catheter placement also.
--- NOTE | 2019-03-13 10:28 | PC.NURSE ---
UPON CHANGE OF SHIFT REPORT THIS AM, PATIENT NOTED TO HAVE DECREASED URINE OUTPUT BY NOC NURSE. ULTRASOUND NOTIFIED NOC NURSE THAT FLORES WAS NOT PLACED APPROPRIATELY. NEW CATHETER STARTED PER LIBRARY TECHNICAL ASSISTANT. BOTH DAY AND LIBRARY TECHNICAL ASSISTANT NURSES ATTEMPTED TO IRRIGATE FLORES USING STERILE TECHNIQUE, HOWEVER VERY LITTLE URINE RETURN WAS PRESENT WITH NO CLOT EVACUATION. DR. BOBO AND DR. GALAVIZ NOTIFIED. NURSE OBTAINED INSTRUCTIONS TO USE 22 GAMBIAN FLORES TO FURTHER ATTEMPT IRRIGATION OF BLADDER. UPON SEVERAL ATTEMPTS, STILL NO CLOTS COULD BE EVACUATED. UPON BLADDER SCAN, THE PATIENT WAS SHOWN TO HAVE >999ML IN BLADDER. NURSE CONTACTED DR. RICO AGAIN, AT WHICH TIME HE INSTRUCTED NURSE TO BRING HIS PROCEDURE CART TO BEDSIDE AND HE WOULD ASSESS THE PATIENT. PLEASE SEE DR. GALAVIZ'S DOCUMENTATION.
[2019-03-13 10:50] LABS: Thyroid Stimulating Hormone 0.19 uIU/mL (0.27-4.20)
[2019-03-13] MEDS: sodium chloride 0.9% 1,000 ML 100 ML IV (11:02)
[2019-03-13 11:39] VITALS: BP 117/57; PULSE 73; RESP 18; TEMP 36.6; O2SAT 96
[2019-03-13 11:42] LABS: Glucose Point of Care 366 mg/dL (70-110)
[2019-03-13 13:04] VITALS: PULSE 71; O2SAT 94
[2019-03-13 14:24] LABS: Bilirubin Urine Neg (NEGATIVE); Blood Urine 3+ (Negative); Glucose Urine UA 2+ (Normal); Ketones Urine Negative (Negative); Leukocyte Esterase Urine 2+ (Negative); Nitrate Urine Negative (Negative); Protein Urine 1+ (Negative); Urine Appearance Cloudy (CLEAR); Urine Color Brown (Yellow); Urobilinogen Urine Norm (Negative); pH Urine 5 (5-7)
[2019-03-13 15:01] LABS: Bacteria Urine 2+; RBC Urine 50-80 /hpf (0-2); WBC Urine TOO NUMEROUS TO CNT /hpf (0-5)
[2019-03-13 15:02] LABS: Add Urine Culture? Yes
[2019-03-13 15:15] LABS: Creatinine Urine, Random 58 mg/dL (39-259)
[2019-03-13 15:20] LABS: Urine Creatinine 59 mg/dL (39-259); Urine Random Sodium 52 mmol/L
[2019-03-13 15:22] LABS: UPRO/UCREAT Ratio 0.88 mg/mg CR; Urine Protein Random 52 mg/dL
[2019-03-13 15:35] VITALS: BP 107/61; PULSE 72; RESP 18; TEMP 36.7; O2SAT 95
[2019-03-13 15:48] LABS: Alanine Aminotransferase 51 U/L (0-41); Albumin Level 2.2 g/dL (3.5-5.2); Alkaline Phosphatase 178 IU/L (40-130); Anion Gap 19.2 (5-19); Aspartate Amino Transferase 41 U/L (0-40); Calcium 10.3 mg/Dl (8.8-10.2); Carbon Dioxide 23 mmol/L (22-29); Chloride 92 mmol/L (98-107); Globulin 3.8 g/dL (1.3-4.6); Glucose 294 mg/dL (74-106); Phosphorus 4.4 mg/dL (2.5-4.5); Potassium 3.2 mmol/L (3.5-5.1); Sodium 131 mmol/L (136-145); Total Bilirubin 0.3 mg/dL (0.15-1.2)
[2019-03-13 15:49] LABS: Blood Urea Nitrogen 95 mg/dL (8-23)
[2019-03-13 16:40] LABS: Eosinophil Urine No Eosinophils Seen
[2019-03-13 16:41] LABS: Urine Eosinophil Count 0 (0-0)
[2019-03-13 16:55] LABS: Glucose Point of Care 270 mg/dL (70-110)
[2019-03-13] MEDS: sodium chloride 0.9% 1,000 ML 125 ML IV (17:56)
--- NOTE | 2019-03-13 18:27 | PC.NURSE ---
THREE TIMES POST UROLOGY PROCEDURE, BLADDER HAS BEEN IRRIGATED USING STERILE TECHNIQUE. EACH TIME SEVERAL SMALL CLOTS HAVE BEEN EVACUATED. PATIENT HAS HAD ADEQUATE URINE OUTPUT POST PROCEDURE AND URINE IS BEGINNING TO BE MORE CLEAR.
--- NOTE | 2019-03-13 19:24 | P.PN_ITS ---
Subjective Subjective: Interval history: Patient still has episodes of confusion, lethargy and sleepiness. He was found to have markedly dilated bladder. He also had a bilateral hydronephrosis, cystitis and features of bilateral obstructive uropathy. Around 2 L of infected urine was drained Medications: Reviewed: Yes Medication Review Details: Active Medications Generic Name Dose Route Start Last Admin Trade Name Freq PRN Reason Stop Dose Admin Amlodipine Besylat e 5 mg 03/10/19 09:00 03/10/19 08:55 Norvasc PO 5 mg DAILY KILO Administration Ascorbic Acid 1,000 mg 03/10/19 09:00 03/10/19 08:54 Vitamin C PO 1,000 mg DAILY KILO Administration Aspirin 81 mg 03/10/19 09:00 03/10/19 08:55 Aspirin Chewable PO 81 mg DAILY KILO Administration Atorvastatin Calci um 80 mg 03/10/19 09:00 03/10/19 08:55 Lipitor PO 80 mg DAILY KILO Administration Dextrose 25 ml 03/10/19 03:53 D50w IVP ONCE PRN hypoglycemia prot ocol Protocol Dextrose 50 ml 03/10/19 03:53 D50w IVP PRN PRN hypoglycemia prot ocol Protocol Glucagon 1 mg 03/10/19 03:53 Glucagen IM ONCE PRN Adult Acute Hypog lycemia Prot. Protocol Dextrose 500 mls @ 100 mls /hr 03/10/19 03:53 D5w IV ONCE PRN Adult Acute Hypog lycemia Prot Protocol Ceftriaxone Sodium 1,000 mg/ 50 mls @ 100 mls/ hr 03/10/19 04:45 03/10/19 07:23 Sodium Chloride IV Infused Q24H KILO Infusion Protocol Potassium Chloride 40 meq in 100 mls @ 25 mls/hr 03/10/19 09:30 K-Wm IV 03/10/19 17:29 Q4H KILO Insulin Aspart 0 unit 03/10/19 08:00 03/10/19 08:55 Novolog SUBCUT 16 unit WM&BEDTIME KILO Administration Protocol Metoprolol Tartrat e 25 mg 03/10/19 09:00 03/10/19 08:54 Lopressor PO 25 mg BID KILO Administration Tamsulosin HCl 0.4 mg 03/10/19 09:00 03/10/19 08:55 Flomax PO 0.4 mg BID KILO Administration No Known Allergies Allergy (Verified 03/09/19 21:59) Vitals/I&O/Wt Last Vital Signs Temp 98.0 F 03/13/19 15:35 Pulse 72 03/13/19 15:35 Resp 18 03/13/19 15:35 BP 107/61 03/13/19 15:35 Pulse Ox 95 03/13/19 15:35 03/13/19 03/13/19 03/13/19 06:59 14:59 22:59 Intake Total 410 / 770 Output Total 1500 / 1500 800 / 2300 Balance 410 / 470 -1500 / -1500 -800 / -2300 Weight last 48 hrs Weight 290 lb 6.4 oz Weight 291 lb 1.6 oz Physical Exam Const: EXAM LIMITATIONS: altered mental status (Patient is very drowsy today) GENERAL APPEARANCE: cooperative, well developed, well hydrated and other (Has been having intermittent episodes of confusion); not in distress HENMT: MOUTH: lip normal; no other (ulcers or bleeding) TEETH & GINGIVA: no other (bleeding observed and inflammation present) Eye: COMMON NORMALS: PERRL GENERAL EYE: normal appearance of both eyes SCLERA: sclerae normal PUPIL: Yes PERRL DIRECT OPHTHALMOSCOPY: Yes other (The fundus is not visualized) Neck/C-Spine: GENERAL: Yes trachea midline and No JVD THYROID: not diffusely enlarged CAROTIDS: Yes normal carotid upstroke (and runoff) Chest: COMMONS NORMALS: inspection of chest normal CHEST: No abnormal inspection of the chest Resp: EFFORT & INSPECTION: Yes symmetric chest movement and No uses accessory muscles AUSCULTATION: no crackles, no wheezes and diminished lung sounds bilateral (At the bases) Cardio: COMMON NORMALS: regular rate, S1 normal heart sound and S2 normal heart sound JUGULAR VENOUS DISTENTION: no JVD PALPATION: no heave, no palpable S3, no thrill and other (PMI could not be palpated) RATE: regular rate HEART SOUNDS: S1 normal, S2 normal, murmur (Short systolic murmur at the left sternal border. No diastolic murmurs. ) and no rubs BRUITS: no abdominal aortic bruits PERIPHERAL PULSES: femoral pulses present positive bilateral (Normal), posterior tibial pulses present positive bilateral (Normal) and dorsalis pedis pulses present positive bilateral (Normal) GI: AUSCULTATION: Yes normoactive bowel sounds and No abdominal bruit PALPATION: No tender, No hepatomegaly, No splenomegaly and No mass Back/Pelvis: GENERAL BACK: No swelling and No other (joint deformities) THORACIC SPINE/UPPER BACK: No kyphosis present LUMBAR SPINE/LOWER BACK: No lumbar scoliosis present Extremity: COMMON NORMALS: negative for no clubbing, cyanosis or edema and negative for no pedal edema NARRATIVE EXTREMITY EXAM: Patient has features of bilateral chronic venous stasis. 1+ edema both lower extremities. No cyanosis. GENERAL: No cyanosis Neuro: COMMON NORMALS: negative for no focal motor deficits MOTOR EXAM: No tremor Psych: MOOD & AFFECT: Yes other (Normal mood and affect) Skin: COMMON NORMALS: skin turgor normal; negative for no petechiae GENERAL SKIN EXAM: turgor normal, skin not dry and no erythema RASHES: rash noted NAILS: normal, no clubbing, not discolored and no other (cyanosis) Urinary Catheter Management^: Torres: Cath Placed During This Visit: no Data Micro: Micro: Microbiology 03/10/19 00:12 Urine Culture - Fi nal Urine,Clean Catch Serratia marces cens A&P Assessment and plan (1) Elevated troponin: Most likely this patient had a non-ST elevation myocardial infarction. Hemodynamically seems to be stable. He has moderate ischemia based on the perfusion scan. In view of his multiple comorbidities and also fairly asymptomatic state, it may be appropriate to optimize her medical treatment at this time. His worsening kidney function is a major concern for any interventional procedures. Continue on the Plavix and other medications Status: Acute Code(s): R79.89 - Other specified abnormal findings of blood chemistry (2) Acute on chronic diastolic heart failure: Heart failure seems to be compensated at this time. We will carefully monitor the fluid status in view of the worsening kidney function. May give as needed Lasix. Status: Acute Code(s): I50.33 - Acute on chronic diastolic (congestive) heart failure (3) Dyslipidemia (high LDL; low HDL): Continue on the current medications. 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 However because of the multiple comorbidities, it may be a prepared to hold off on this for the time being. Try to optimize the medical treatment. According to the , the patient will be willing to go for the angiogram, if it is appropriate. Since he has no chest pain or any other specific symptoms of coronary insufficiency, we may hold off on any invasive or interventional procedures at this time. Status: Acute Qualifiers: [place] vs. transplanted heart: [place] heart Associated angina: without angina Qualified Code(s): I25.810 - Atherosclerosis of coronary artery bypass graft(s) without angina pectoris Code(s): I25.810 - Atherosclerosis of coronary artery bypass graft(s) without angina pectoris (5) DANIEL (acute kidney injury): Patient has a history of renal failure. The worsening kidney function is a concern. This needs to be closely monitored. Appreciate the consult from nephrology and urology. Increasing white cell count could be from the infection. Status: Acute Code(s): N17.9 - Acute kidney failure, unspecified (6) HTN (hypertension): The blood pressure seems to be under control. May continue on the current medications. Status: Acute Qualifiers: Hypertension type: essential hypertension Qualified Code(s): I10 - Essential (primary) hypertension Code(s): I10 - Essential (primary) hypertension Additional A&P Information Other problems are Altered mental status, etiology? Degenerative joint disease -chronic back pain and lumbar radiculopathy Hypercalcemia, etiology? Patient has hyperglycemia. Low albumin Leukocytosis, increasing white cell count I had discussions with the patient and his . Considering his worsening kidney function, we may hold off on any invasive cardiac procedures at this point. Since he has no chest pain or any other specific cardiac symptoms, it might be appropriate to optimize her medical treatment at this time. 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 transplanted heart: [place] heart Associated angina: without angina DANIEL (acute kidney injury) N17.9 HTN (hypertension) I10 Hypertension type: essential hypertension
[2019-03-13 20:00] VITALS: BP 118/62; RESP 18; TEMP 36.7; O2SAT 94
[2019-03-13] MEDS: insulin glargine 100 units/1 mL 10 UNIT SUBCUT (20:29)
--- NOTE | 2019-03-13 21:05 | P.PN_ITS ---
Subjective Subjective: Interval history: This morning he was generally not feeling well, with abdominal pain, distention secondary to urinary retention, inability to drain urinary bladder. He denies chest pain, shortness of breath, nausea or vomiting. Vitals/I&O/Wt Last Vital Signs Temp 98.1 F 03/13/19 20:00 Pulse 72 03/13/19 15:35 Resp 18 03/13/19 20:00 BP 118/62 03/13/19 20:00 Pulse Ox 94 03/13/19 20:00 03/13/19 03/13/19 03/13/19 06:59 14:59 22:59 Intake Total 410 / 770 Output Total 1500 / 1500 800 / 2300 Balance 410 / 470 -1500 / -1500 -800 / -2300 Weight last 48 hrs Weight 131.723 kg Weight 132.041 kg Physical Exam Const: COMMON NORMALS: oriented x3 GENERAL APPEARANCE: cooperative; not comfortable HENMT: COMMON NORMALS: oropharynx normal Resp: COMMON NORMALS: normal respiratory effort AUSCULTATION: crackles (Few at left base) Cardio: COMMON NORMALS: regular rhythm, S1 normal heart sound, S2 normal heart sound and no murmurs RHYTHM: regular rhythm HEART SOUNDS: S1 normal and S2 normal OTHER: Old sternotomy scar GI: COMMON NORMALS: normal to inspection, nondistended, normoactive bowel sounds, soft to palpation and non-tender PALPATION: Yes soft Extremity: COMMON NORMALS: no joint enlargement GENERAL: Yes edema (Trace bilateral) Neuro: COMMON NORMALS: oriented x3 and moves all extremities Skin: COMMON NORMALS: no rashes or lesions noted GENERAL SKIN EXAM: no rashes or lesions noted Urinary Catheter Management^: Torres: Cath Placed During This Visit: no Data Micro: Micro: Microbiology 03/10/19 00:12 Urine Culture - Fi nal Urine,Clean Catch Serratia marces cens A&P Assessment and plan (1) Acute bilateral obstructive uropathy: With low urine output yesterday, overnight with no output, with attempt to replace Torres which was unsuccessful. Subsequently with finding of blood clots will attempt to placement of three-way catheter. With urinary bladder dilation. Hydronephrosis on imaging. Assessed by urology on urgent basis with bedside cystoscopy, with placement of catheter and decompression of urinary bladder. Recommendations appreciated. Continue Torres catheter beyond discharge. Follow- up with urology in office. Status: Acute Code(s): N13.9 - Obstructive and reflux uropathy, unspecified (2) NSTEMI (non-ST elevated myocardial infarction): Continues on medical therapy. Additional assessment and management limited by decline in renal function. Monitor renal function. Expect improvement with relief of bladder obstruction, hydronephrosis. Status: Acute Code(s): I21.4 - Non-ST elevation (NSTEMI) myocardial infarction (3) DANIEL (acute kidney injury): Nephrology recommendations appreciated. He reports chronic kidney disease stage III. His baseline is difficult to find, although back in November 2016 had acute kidney injury with loss creatinine of 3.2. For now further diuretic as he is perhaps achieving euvolemia. Creatinine up to 3.1. Currently trace if any pedal edema. Recent renal ultrasound done in 07/2018 showing marked prostate gland enlargement and urinary bladder wall hypertrophy. Continue Flomax. Torres. Continue follow-up with urology after discharge. Status: Acute Code(s): N17.9 - Acute kidney failure, unspecified (4) Hyperglycemia: Increased to 15 units Lantus nightly. Aggressive rapid acting sliding scale. Consistent carbohydrate diet. Status: Acute Code(s): R73.9 - Hyperglycemia, unspecified (5) Altered mental status: Mental status with some fluctuation, likely related to his urinary obstruction. Today generally weak, in distress from normal pain in the morning, but awake and alert. UTI. Serratia, sensitive to ceftriaxone. Medications reviewed for anything that may be contributing to encephalopathy. This appears to be improving. He is oriented x3. Does admit to having some issues with his memory recently. Status: Acute Qualifiers: Altered mental status type: somnolence Qualified Code(s): R40.0 - Somnolence Code(s): R41.82 - Altered mental status, unspecified (6) UTI (urinary tract infection): Serratia sensitive to Rocephin. Suspected complicated urinary tract infection with acute encephalopathy on presentation. Fever reaolved. Has history of urinary retention, BPH, urinary bladder wall thickening. Performs straight catheterization at home. Monitor for retention. Continue Flomax. Methenamine. Continue follow-up with urology after discharge. Status: Chronic Qualifiers: Urinary tract infection type: acute cystitis Hematuria presence: with hematuria Qualified Code(s): N30.01 - Acute cystitis with hematuria Code(s): N39.0 - Urinary tract infection, site not specified (7) HTN (hypertension): Blood pressure is close to goal. Continue to monitor. Low-sodium diet after stress test. Status: Acute Qualifiers: Hypertension type: essential hypertension Qualified Code(s): I10 - Essential (primary) hypertension Code(s): I10 - Essential (primary) hypertension Additional A&P Information Mild hypokalemia: replaced BPH, on Flomax Morbid obesity: BMI-39 kg/m2 NIDDM type II; as above Hyperlipidemia; on statin Fecal incontinence? Attestations Medical Necessity Statement*: Continue admission for assessment and management of acute kidney injury, non-STEMI. Coding Level of Care Code Acute Distributor Publications for [facility] Fwd Diagnoses Acute bilateral obstructive uropathy N13.9 NSTEMI (non-ST elevated myocardial infarction) I21.4 DANIEL (acute kidney injury) N17.9 Hyperglycemia R73.9 Altered mental status R40.0 Altered mental status type: somnolence UTI (urinary tract infection) N30.01 Urinary tract infection type: acute cystitis Hematuria presence: with hematuria HTN (hypertension) I10 Hypertension type: essential hypertension
[2019-03-13 21:17] LABS: Glucose Point of Care 368 mg/dL (70-110)
--- NOTE | 2019-03-13 21:38 | PC.NURSE ---
IRRIGATED FLORES WITH STERILE WATER, IRRIGATED WITH 40CC OF STERILE WATER, FLUSHES, URINE TEA COLORED. CARE CONTINUED
[2019-03-14] VITALS (7 sets, daily range): BP systolic 118–146; BP diastolic 62–73; PULSE 71–82; RESP 18–20; TEMP 36.7–36.8; O2SAT 94–98
--- NOTE | 2019-03-14 01:47 | PC.NURSE ---
IRRIGATED FLORES WITH STERILE WATER, IRRIGATED WITH 40CC OF STERILE WATER, FLUSHES, URINE TEA COLORED. CARE CONTINUED
[2019-03-14] MEDS: heparin 5,000 unit/mL INJ 1 mL 5000 UNIT SUBCUT ×3 (02:41→18:10)
[2019-03-14] MEDS: sodium chloride 0.9% 1,000 ML 125 ML IV (02:42)
[2019-03-14] MEDS: cefTRIAXone 1,000 MG in sodium chloride 0.9% (plus) 50 ML 100 MG IV (05:45)
[2019-03-14 06:33] LABS: Alanine Aminotransferase 55 U/L (0-41); Albumin Level 2.7 g/dL (3.5-5.2); Alkaline Phosphatase 175 IU/L (40-130); Calcium 10.4 mg/Dl (8.8-10.2); Carbon Dioxide 24 mmol/L (22-29); Chloride 94 mmol/L (98-107); Globulin 3.6 g/dL (1.3-4.6); Glucose 273 mg/dL (74-106); Sodium 134 mmol/L (136-145); Total Bilirubin 0.4 mg/dL (0.15-1.2); Total Protein 6.3 g/dL (6.6-8.7)
[2019-03-14 06:34] LABS: Aspartate Amino Transferase 50 U/L (0-40); Blood Urea Nitrogen 109 mg/dL (8-23)
--- NOTE | 2019-03-14 07:04 | PC.NURSE ---
NOTIFIED HOSPITALIST REGARDING CRITICAL ON BUN/AND CREATININE LEVEL, NO NEW ORDERS RECEIVED AT THIS TIME.
[2019-03-14 07:07] LABS: Basophils % 0.1 %; Eosinophils # 0.1 10^3/uL (0.0-0.8); Eosinophils % 0.6 %; Hematocrit 40.7 % (42.0-52.0); Hemoglobin 13.2 g/dL (11.7-16.6); Lymphocytes # 0.7 10^3/uL (0.8-4.8); Lymphocytes % 5.6 %; Mean Corpuscular HGB Conc 32.4 g/dL (30.0-36.0); Mean Corpuscular Hemoglobin 28.6 pg (28.0-34.0); Mean Corpuscular Volume 88.1 fL (80-94); Mean Platelet Volume 11.4 fL (7.4-10.4); Monocytes # 0.8 10^3/uL (0.2-0.9); Monocytes % 6.3 %; Neutrophils # 11.3 10^3/uL (1.8-7.7); Neutrophils % 86.9 %; Nucleated Red Blood Cells % 0 %; Platelet Count 305 10^3/cmm (130-400); Red Blood Count 4.62 10^6/uL (4.1-5.3); Red Cell Distribution Width 14.4 % (12.1-15.1)
[2019-03-14 08:08] LABS: Glucose Point of Care 285 mg/dL (70-110)
[2019-03-14] MEDS: aspirin 81 mg Chew Tablet PO (08:56)
[2019-03-14] MEDS: ascorbic acid 500 mg Tablet 1000 MG PO (08:56)
[2019-03-14] MEDS: metoprolol tartrate 25 mg Tablet PO ×2 (08:56→18:10)
[2019-03-14] MEDS: clopidogrel 75 mg Tablet PO (08:56)
[2019-03-14] MEDS: atorvastatin 40 mg Tablet 80 MG PO (08:56)
[2019-03-14] MEDS: amlodipine 10 mg Tablet 5 MG PO (08:56)
[2019-03-14] MEDS: tamsulosin 0.4 mg Capsule PO ×2 (08:56→18:10)
--- NOTE | 2019-03-14 10:11 | PM.PN ---
Subjective Subjective: Interval history: more awake, purulent urine in a wyman catheter. 24 hr events noted. more awke, but sleepy- less sob Medications: Reviewed: Yes Medication Review Details: Active Medications Generic Name Dose Route Start Last Admin Trade Name Frealejandro PRN Reason Stop Dose Admin Amlodipine Besylat e 5 mg 03/10/19 09:00 03/10/19 08:55 Norvasc PO 5 mg DAILY KILO Administration Ascorbic Acid 1,000 mg 03/10/19 09:00 03/10/19 08:54 Vitamin C PO 1,000 mg DAILY KILO Administration Aspirin 81 mg 03/10/19 09:00 03/10/19 08:55 Aspirin Chewable PO 81 mg DAILY KILO Administration Atorvastatin Calci um 80 mg 03/10/19 09:00 03/10/19 08:55 Lipitor PO 80 mg DAILY KILO Administration Dextrose 25 ml 03/10/19 03:53 D50w IVP ONCE PRN hypoglycemia prot ocol Protocol Dextrose 50 ml 03/10/19 03:53 D50w IVP PRN PRN hypoglycemia prot ocol Protocol Glucagon 1 mg 03/10/19 03:53 Glucagen IM ONCE PRN Adult Acute Hypog lycemia Prot. Protocol Dextrose 500 mls @ 100 mls /hr 03/10/19 03:53 D5w IV ONCE PRN Adult Acute Hypog lycemia Prot Protocol Ceftriaxone Sodium 1,000 mg/ 50 mls @ 100 mls/ hr 03/10/19 04:45 03/10/19 07:23 Sodium Chloride IV Infused Q24H KILO Infusion Protocol Potassium Chloride 40 meq in 100 mls @ 25 mls/hr 03/10/19 09:30 K-Wm IV 03/10/19 17:29 Q4H [facility] Insulin Aspart 0 unit 03/10/19 08:00 03/10/19 08:55 Novolog SUBCUT 16 unit WM&BEDTIME KILO Administration Protocol Metoprolol Tartrat e 25 mg 03/10/19 09:00 03/10/19 08:54 Lopressor PO 25 mg BID KILO Administration Tamsulosin HCl 0.4 mg 03/10/19 09:00 03/10/19 08:55 Flomax PO 0.4 mg BID KILO Administration No Known Allergies Allergy (Verified 03/09/19 21:59) Vitals/I&O/Wt Last Vital Signs Temp 98.2 F 03/14/19 07:03 Pulse 82 03/14/19 07:03 Resp 20 H 03/14/19 07:03 BP 139/67 03/14/19 07:03 Pulse Ox 94 03/14/19 07:03 03/13/19 03/14/19 03/14/19 22:59 06:59 14:59 Intake Total 0 / 0 1000 / 1000 Output Total 800 / 2300 2800 / 5100 Balance -800 / -2300 -1800 / -4100 Weight last 48 hrs Weight 131.814 kg Weight 131.723 kg Physical Exam Narrative: EXAM NARRATIVE: obese in chair, nard heent- nc/at, eomi, anicteric neck- supple lungs- crakles heart reg abd soft, nt, nd + wyman ext 1 + edema neuro- a,a, o x 2 Urinary Catheter Management^: Wyman: Cath Placed During This Visit: no A&P Additional A&P Information 73 yr old man obesity, htn, dm, NSTEMI, addison 1. addison- obstruction +/- atn. -cr starting to improve since urology changed wyman and did cystoscopy -appreciate renal us b/l hydronephrosis- moderate on one side, mild on other - dec ivf -monitor chemistries bid -no emergent need for dialysis -hopefully renal fxn will continue to improve 2. chf/ nstemi- stable for now 3. uncontrolled dm 4. uti- leukpcytosis persists- renal dose abx 5. hyponatremia- from renal failure and chf- improving 6.. vit d depletion- replete -repeat pth in 8 weeks 7. hypercalcemia from addison and vit d depletion improving 8. inc ammonia and inc lft's- consider lactulose as per hospitalist Attestations Medical Necessity Statement*: addison, obstruction, electrolyte abnormalities, nstemi Time Spent in Patient Care: 16 - 35 minutes (>than 50% of time spent in counselling and/or direct pt care on unit). Coding Level of Care Code Acute Guest Experience Specialist for [facility]
[2019-03-14 11:44] LABS: Glucose Point of Care 303 mg/dL (70-110)
[2019-03-14] MEDS: sodium chloride 0.9% 1,000 ML 75 ML IV (14:41)
[2019-03-14 15:58] LABS: Glucose Point of Care 332 mg/dL (70-110)
[2019-03-14 17:02] LABS: Alanine Aminotransferase 50 U/L (0-41); Albumin Level 2.3 g/dL (3.5-5.2); Alkaline Phosphatase 162 IU/L (40-130); Anion Gap 16.4 (5-19); Aspartate Amino Transferase 39 U/L (0-40); Calcium 10.4 mg/Dl (8.8-10.2); Carbon Dioxide 25 mmol/L (22-29); Chloride 96 mmol/L (98-107); Globulin 4.5 g/dL (1.3-4.6); Glucose 299 mg/dL (74-106); Potassium 3.4 mmol/L (3.5-5.1); Sodium 134 mmol/L (136-145); Total Bilirubin 0.3 mg/dL (0.15-1.2); Total Protein 6.8 g/dL (6.6-8.7)
[2019-03-14 17:48] LABS: Blood Urea Nitrogen 104 mg/dL (8-23)
--- NOTE | 2019-03-14 18:32 | PM.PN ---
Subjective Subjective: Interval history: Patient continues to have the lethargy, sleepiness and. The confusion. Mostly lying around in the bed. No chest pain or palpitation. No significant arrhythmias on the telemetry. The blood urea nitrogen is going up but the creatinine is coming down. Medications: Reviewed: Yes Medication Review Details: Active Medications Generic Name Dose Route Start Last Admin Trade Name Freq PRN Reason Stop Dose Admin Amlodipine Besylat e 5 mg 03/10/19 09:00 03/10/19 08:55 Norvasc PO 5 mg DAILY KILO Administration Ascorbic Acid 1,000 mg 03/10/19 09:00 03/10/19 08:54 Vitamin C PO 1,000 mg DAILY KILO Administration Aspirin 81 mg 03/10/19 09:00 03/10/19 08:55 Aspirin Chewable PO 81 mg DAILY KILO Administration Atorvastatin Calci um 80 mg 03/10/19 09:00 03/10/19 08:55 Lipitor PO 80 mg DAILY KILO Administration Dextrose 25 ml 03/10/19 03:53 D50w IVP ONCE PRN hypoglycemia prot ocol Protocol Dextrose 50 ml 03/10/19 03:53 D50w IVP PRN PRN hypoglycemia prot ocol Protocol Glucagon 1 mg 03/10/19 03:53 Glucagen IM ONCE PRN Adult Acute Hypog lycemia Prot. Protocol Dextrose 500 mls @ 100 mls /hr 03/10/19 03:53 D5w IV ONCE PRN Adult Acute Hypog lycemia Prot Protocol Ceftriaxone Sodium 1,000 mg/ 50 mls @ 100 mls/ hr 03/10/19 04:45 03/10/19 07:23 Sodium Chloride IV Infused Q24H KILO Infusion Protocol Potassium Chloride 40 meq in 100 mls @ 25 mls/hr 03/10/19 09:30 K-Wm IV 03/10/19 17:29 Q4H KILO Insulin Aspart 0 unit 03/10/19 08:00 03/10/19 08:55 Novolog SUBCUT 16 unit WM&BEDTIME KILO Administration Protocol Metoprolol Tartrat e 25 mg 03/10/19 09:00 03/10/19 08:54 Lopressor PO 25 mg BID KILO Administration Tamsulosin HCl 0.4 mg 03/10/19 09:00 03/10/19 08:55 Flomax PO 0.4 mg BID KILO Administration No Known Allergies Allergy (Verified 03/09/19 21:59) Vitals/I&O/Wt Last Vital Signs Temp 98.2 F 03/14/19 15:06 Pulse 78 03/14/19 15:06 Resp 18 03/14/19 15:06 BP 138/69 03/14/19 15:06 Pulse Ox 97 03/14/19 15:06 03/14/19 03/14/19 03/14/19 06:59 14:59 22:59 Intake Total 1000 / 1000 1120 / 1120 240 / 1360 Output Total 2800 / 5100 900 / 900 1650 / 2550 Balance -1800 / -4100 220 / 220 -1410 / -1190 Weight last 48 hrs Weight 290 lb 9.6 oz Weight 290 lb 6.4 oz Physical Exam Const: EXAM LIMITATIONS: altered mental status (Patient is drowsy/sleepy) GENERAL APPEARANCE: cooperative, well developed, well hydrated and other (Has been having intermittent episodes of confusion); not in distress HENMT: MOUTH: lip normal; no other (ulcers or bleeding) TEETH & GINGIVA: no other (bleeding observed and inflammation present) Eye: COMMON NORMALS: PERRL GENERAL EYE: normal appearance of both eyes SCLERA: sclerae normal PUPIL: Yes PERRL DIRECT OPHTHALMOSCOPY: Yes other (The fundus is not visualized) Neck/C-Spine: GENERAL: Yes trachea midline and No JVD THYROID: not diffusely enlarged CAROTIDS: Yes normal carotid upstroke (and runoff) Chest: COMMONS NORMALS: inspection of chest normal CHEST: No abnormal inspection of the chest Resp: EFFORT & INSPECTION: Yes symmetric chest movement and No uses accessory muscles AUSCULTATION: no crackles, no wheezes and diminished lung sounds bilateral (At the bases) Cardio: COMMON NORMALS: regular rate, S1 normal heart sound and S2 normal heart sound JUGULAR VENOUS DISTENTION: no JVD PALPATION: no heave, no palpable S3, no thrill and other (PMI could not be palpated) RATE: regular rate HEART SOUNDS: S1 normal, S2 normal, murmur (Short systolic murmur at the left sternal border. No diastolic murmurs. ) and no rubs BRUITS: no abdominal aortic bruits PERIPHERAL PULSES: femoral pulses present positive bilateral (Normal), posterior tibial pulses present positive bilateral (Normal) and dorsalis pedis pulses present positive bilateral (Normal) GI: AUSCULTATION: Yes normoactive bowel sounds and No abdominal bruit PALPATION: No tender, No hepatomegaly, No splenomegaly and No mass Back/Pelvis: GENERAL BACK: No swelling and No other (joint deformities) THORACIC SPINE/UPPER BACK: No kyphosis present LUMBAR SPINE/LOWER BACK: No lumbar scoliosis present Extremity: COMMON NORMALS: negative for no clubbing, cyanosis or edema and negative for no pedal edema NARRATIVE EXTREMITY EXAM: Patient has features of bilateral chronic venous stasis. 1+ edema both lower extremities. No cyanosis. GENERAL: No cyanosis Neuro: COMMON NORMALS: negative for no focal motor deficits MOTOR EXAM: No tremor Psych: MOOD & AFFECT: Yes other (Normal mood and affect) Skin: COMMON NORMALS: skin turgor normal; negative for no petechiae GENERAL SKIN EXAM: turgor normal, skin not dry and no erythema RASHES: rash noted NAILS: normal, no clubbing, not discolored and no other (cyanosis) Urinary Catheter Management^: Torres: Cath Placed During This Visit: no Data Micro: Micro: Microbiology 03/13/19 11:50 Urine Culture - Pr eliminary Urine,Clean Catch A&P Assessment and plan (1) Elevated troponin: Most likely this patient had a non-ST elevation myocardial infarction. Hemodynamically seems to be stable. He has moderate ischemia based on the perfusion scan. In view of his multiple comorbidities and also fairly asymptomatic state, it may be appropriate to optimize her medical treatment at this time. Continue on the Plavix and other medications Status: Acute Code(s): R79.89 - Other specified abnormal findings of blood chemistry (2) Acute on chronic diastolic heart failure: Heart failure seems to be compensated at this time. We will carefully monitor the fluid status in view of the worsening kidney function. May give as needed Lasix. Status: Acute Code(s): I50.33 - Acute on chronic diastolic (congestive) heart failure (3) Dyslipidemia (high LDL; low HDL): Continue on the current medications. 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 However because of the multiple comorbidities, it may be appropriate to hold off on this for the time being. Try to optimize the medical treatment. According to the , the patient will be willing to go for the angiogram, when it is appropriate. Since he has no chest pain or any other specific symptoms of coronary insufficiency, we may hold off on any invasive or interventional procedures at this time. Status: Acute Qualifiers: [place] vs. transplanted heart: [place] heart Associated angina: without angina Qualified Code(s): I25.810 - Atherosclerosis of coronary artery bypass graft(s) without angina pectoris Code(s): I25.810 - Atherosclerosis of coronary artery bypass graft(s) without angina pectoris (5) DANIEL (acute kidney injury): Patient has a history of renal failure. Has bilateral hydronephrosis. Creatinine is slowly coming down. Bladder catheter seems to be draining Status: Acute Code(s): N17.9 - Acute kidney failure, unspecified (6) HTN (hypertension): The blood pressure seems to be under control. May continue on the current medications. Status: Acute Qualifiers: Hypertension type: essential hypertension Qualified Code(s): I10 - Essential (primary) hypertension Code(s): I10 - Essential (primary) hypertension Additional A&P Information Other problems are Altered mental status, etiology? Degenerative joint disease -chronic back pain and lumbar radiculopathy Hypercalcemia, etiology? Patient has hyperglycemia. Low albumin Leukocytosis, increasing white cell count I had discussions with the patient and his . Considering his worsening kidney function, we may hold off on any invasive cardiac procedures at this point. 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 transplanted heart: [place] heart Associated angina: without angina DANIEL (acute kidney injury) N17.9 HTN (hypertension) I10 Hypertension type: essential hypertension
[2019-03-14 18:34] LABS: Oxygen Device NC
--- NOTE | 2019-03-14 20:28 | PM.PN ---
Subjective Subjective: Interval history: He is generally weak. Today denies any abdominal discomfort. Denies chest pain or trouble breathing. Vitals/I&O/Wt Last Vital Signs Temp 98.2 F 03/14/19 15:06 Pulse 78 03/14/19 15:06 Resp 18 03/14/19 15:06 BP 138/69 03/14/19 15:06 Pulse Ox 97 03/14/19 15:06 03/14/19 03/14/19 03/14/19 06:59 14:59 22:59 Intake Total 1000 / 1000 1120 / 1120 240 / 1360 Output Total 2800 / 5100 900 / 900 1650 / 2550 Balance -1800 / -4100 220 / 220 -1410 / -1190 Weight last 48 hrs Weight 131.814 kg Weight 131.723 kg Physical Exam Const: COMMON NORMALS: oriented x3 GENERAL APPEARANCE: cooperative, comfortable and other (Generally weak); not in distress HENMT: COMMON NORMALS: oropharynx normal Resp: COMMON NORMALS: normal respiratory effort AUSCULTATION: no crackles Cardio: COMMON NORMALS: regular rhythm, S1 normal heart sound, S2 normal heart sound and no murmurs RHYTHM: regular rhythm HEART SOUNDS: S1 normal and S2 normal OTHER: Old sternotomy scar GI: COMMON NORMALS: normal to inspection, nondistended, normoactive bowel sounds, soft to palpation and non-tender PALPATION: Yes soft Extremity: COMMON NORMALS: no joint enlargement GENERAL: Yes edema (Trace bilateral) Neuro: COMMON NORMALS: oriented x3 and moves all extremities Skin: COMMON NORMALS: no rashes or lesions noted GENERAL SKIN EXAM: no rashes or lesions noted Urinary Catheter Management^: Torres: Cath Placed During This Visit: no Data : 03/14/19 05:30 03/14/19 16:18 Micro: Microbiology 03/13/19 11:50 Urine Culture - Preliminary Urine,Clean Catch A&P Assessment and plan (1) DANIEL (acute kidney injury): Improving. Creatinine down to 4.2. Continue to monitor renal function. Nephrology recommendations appreciated. He reports chronic kidney disease stage III. His baseline is difficult to find, although back in November 2016 had acute kidney injury with loss creatinine of 3.2. Continue Flomax. Torres. Continue follow-up with urology after discharge. Status: Acute Code(s): N17.9 - Acute kidney failure, unspecified (2) NSTEMI (non-ST elevated myocardial infarction): Continues on medical therapy. Additional assessment and management limited by decline in renal function. Monitor renal function. Expect improvement with relief of bladder obstruction, hydronephrosis. Status: Acute Code(s): I21.4 - Non-ST elevation (NSTEMI) myocardial infarction (3) Acute bilateral obstructive uropathy: Urine appears clear, without clots. Torres draining. Keep in place. Follow-up with urology in office. Status: Acute Code(s): N13.9 - Obstructive and reflux uropathy, unspecified (4) Hyperglycemia: Increased to 15 units Lantus nightly. Aggressive rapid acting sliding scale. Consistent carbohydrate diet. Status: Acute Code(s): R73.9 - Hyperglycemia, unspecified (5) Altered mental status: Mental status with some fluctuation, likely related to his urinary obstruction. Today generally weak, in distress from normal pain in the morning, but awake and alert. UTI. Serratia, sensitive to ceftriaxone. Medications reviewed for anything that may be contributing to encephalopathy. This appears to be improving. He is oriented x3. Does admit to having some issues with his memory recently. Status: Acute Qualifiers: Altered mental status type: somnolence Qualified Code(s): R40.0 - Somnolence Code(s): R41.82 - Altered mental status, unspecified (6) UTI (urinary tract infection): Serratia sensitive to Rocephin. Suspected complicated urinary tract infection with acute encephalopathy on presentation. Fever reaolved. Has history of urinary retention, BPH, urinary bladder wall thickening. Performs straight catheterization at home. Monitor for retention. Continue Flomax. Methenamine. Continue follow-up with urology after discharge. Status: Chronic Qualifiers: Urinary tract infection type: acute cystitis Hematuria presence: with hematuria Qualified Code(s): N30.01 - Acute cystitis with hematuria Code(s): N39.0 - Urinary tract infection, site not specified (7) HTN (hypertension): Blood pressure is close to goal. Continue to monitor. Low-sodium diet after stress test. Status: Acute Qualifiers: Hypertension type: essential hypertension Qualified Code(s): I10 - Essential (primary) hypertension Code(s): I10 - Essential (primary) hypertension Additional A&P Information Mild hypokalemia: replaced BPH, on Flomax Morbid obesity: BMI-39 kg/m2 NIDDM type II; as above Hyperlipidemia; on statin Fecal incontinence? Attestations Medical Necessity Statement*: Continue admission for assessment of management of DANIEL, non-STEMI. Coding Level of Care Code Acute Tractor Crane Operator for [facility] Fwd Diagnoses DANIEL (acute kidney injury) N17.9 NSTEMI (non-ST elevated myocardial infarction) I21.4 Acute bilateral obstructive uropathy N13.9 Hyperglycemia R73.9 Altered mental status R40.0 Altered mental status type: somnolence UTI (urinary tract infection) N30.01 Urinary tract infection type: acute cystitis Hematuria presence: with hematuria HTN (hypertension) I10 Hypertension type: essential hypertension
[2019-03-14 21:03] LABS: Glucose Point of Care 395 mg/dL (70-110)
[2019-03-14] MEDS: insulin glargine 100 units/1 mL 15 UNIT SUBCUT (21:53)
[2019-03-15] VITALS (7 sets, daily range): BP systolic 122–145; BP diastolic 71–86; PULSE 78–91; RESP 17–20; TEMP 36.6–36.8; O2SAT 95–98
[2019-03-15] MEDS: sodium chloride 0.9% 1,000 ML 75 ML IV ×2 (01:48→15:11)
[2019-03-15] MEDS: heparin 5,000 unit/mL INJ 1 mL 5000 UNIT SUBCUT ×3 (01:49→17:56)
[2019-03-15] MEDS: cefTRIAXone 1,000 MG in sodium chloride 0.9% (plus) 50 ML 100 MG IV (04:21)
[2019-03-15 06:38] LABS: Basophils % 0.1 %; Eosinophils # 0.1 10^3/uL (0.0-0.8); Eosinophils % 0.8 %; Hematocrit 39.6 % (42.0-52.0); Hemoglobin 12.8 g/dL (11.7-16.6); Lymphocytes % 9.7 %; Mean Corpuscular HGB Conc 32.3 g/dL (30.0-36.0); Mean Corpuscular Hemoglobin 28.7 pg (28.0-34.0); Mean Corpuscular Volume 88.8 fL (80-94); Mean Platelet Volume 11.3 fL (7.4-10.4); Monocytes # 0.7 10^3/uL (0.2-0.9); Monocytes % 7.2 %; Neutrophils # 8.2 10^3/uL (1.8-7.7); Neutrophils % 81.5 %; Nucleated Red Blood Cells % 0 %; Platelet Count 346 10^3/cmm (130-400); Red Blood Count 4.46 10^6/uL (4.1-5.3); Red Cell Distribution Width 14.4 % (12.1-15.1)
[2019-03-15 06:59] LABS: Alanine Aminotransferase 50 U/L (0-41); Albumin Level 2.8 g/dL (3.5-5.2); Alkaline Phosphatase 148 IU/L (40-130); Anion Gap 19.2 (5-19); Calcium 10.6 mg/Dl (8.8-10.2); Carbon Dioxide 25 mmol/L (22-29); Chloride 101 mmol/L (98-107); Globulin 3.6 g/dL (1.3-4.6); Glucose 258 mg/dL (74-106); Potassium 4.2 mmol/L (3.5-5.1); Sodium 141 mmol/L (136-145); Total Bilirubin 0.4 mg/dL (0.15-1.2); Total Protein 6.4 g/dL (6.6-8.7)
[2019-03-15 07:00] LABS: Aspartate Amino Transferase 44 U/L (0-40); Blood Urea Nitrogen 88 mg/dL (8-23)
[2019-03-15 07:44] LABS: Glucose Point of Care 310 mg/dL (70-110)
--- NOTE | 2019-03-15 09:19 | PC.SOCIAL ---
IMM Update Pg 2 of IMM given and explained to patient who voiced understanding. Chart updated, copy provided to patient.
[2019-03-15] MEDS: amlodipine 10 mg Tablet 5 MG PO (11:24)
[2019-03-15] MEDS: ascorbic acid 500 mg Tablet 1000 MG PO (11:24)
[2019-03-15] MEDS: atorvastatin 40 mg Tablet 80 MG PO (11:25)
[2019-03-15] MEDS: aspirin 81 mg Chew Tablet PO (11:25)
[2019-03-15] MEDS: metoprolol tartrate 25 mg Tablet PO ×2 (11:26→17:55)
[2019-03-15] MEDS: clopidogrel 75 mg Tablet PO (11:26)
[2019-03-15] MEDS: tamsulosin 0.4 mg Capsule PO ×2 (11:27→17:56)
[2019-03-15 11:57] LABS: Glucose Point of Care 399 mg/dL (70-110)
--- NOTE | 2019-03-15 13:46 | P.PN_ITS ---
Subjective Subjective: Interval history: Covering for Dr. Turner. Patient is a chronically ill man age 73 who was admitted 5 days ago with a change in his mental status, mild elevation in his troponin, heart failure, hypokalemia, urinary tract infection, acute kidney injury, weakness, difficulty walking, falling at home and urinary retention with bilateral hydronephrosis. He has a long list of medical problems that includes coronary disease and history of coronary bypass surgery 20 years ago. Apparently he does not see a magazine hand. Several days into his hospital stay nephrology saw him. His creatinine went up to almost 6. He was then seen by urology because of the hydronephrosis. After treatment his creatinine is now down to 3.1. His BUN is still 88 however. He is somnolent and cannot give a history today. He is assumed to have leaked some troponin primarily because of his severe underlying illnesses and perhaps related to his underlying coronary artery disease. Dwain jung is known specifically about his bypass surgery. The intake and output log is confusing so it is difficult to tell how much urine output he has had. The echo reveals an ejection fraction of 60% with grade 1 diastolic dysfunction. The sestamibi examination shows ischemia in the distribution of the right and circumflex and perhaps minimally in the distribution of the LAD with a mildly reduced ejection fraction of 45% Medications: Reviewed: Yes Vitals/I&O/Wt Last Vital Signs Temp 98.1 F 03/15/19 11:22 Pulse 86 03/15/19 11:22 Resp 18 03/15/19 11:22 BP 122/71 03/15/19 11:22 Pulse Ox 97 03/15/19 11:22 03/14/19 03/15/19 03/15/19 22:59 06:59 14:59 Intake Total 240 / 1360 2953.75 / 4313.75 240 / 240 Output Total 1650 / 2550 2000 / 4550 Balance -1410 / -1190 953.75 / -236.25 240 / 240 Weight last 48 hrs Weight 290 lb Weight 290 lb 9.6 oz Physical Exam Narrative: EXAM NARRATIVE: GENERAL: In general he is sleepy and does not arouse HEENT: Exam within normal limits. NECK: Supple without jugular vein distention. The carotid upstroke is normal wi thout bruits. BACK: Exam normal. LUNGS: Clear. HEART: Regular rate and rhythm. ABDOMEN: Benign without organomegaly or tenderness. EXTREMITIES: No edema. NEUROLOGIC: Exam not done. SKIN: Unremarkable. Urinary Catheter Management^: Torres: Cath Placed During This Visit: no Data : 03/15/19 05:50 03/15/19 05:35 Micro: Microbiology 03/13/19 11:50 Urine Culture - Final Urine,Clean Catch 03/09/19 22:50 Blood Culture - Final Blood NO GROWTH AFTER 5 DAYS 03/09/19 22:39 Blood Culture - Final Blood NO GROWTH AFTER 5 DAYS A&P Assessment and plan (1) Shortness of breath: Status: Acute Code(s): R06.02 - Shortness of breath (2) Hypoxia: Status: Acute Code(s): R09.02 - Hypoxemia (3) HTN (hypertension): Status: Acute Qualifiers: Hypertension type: essential hypertension Qualified Code(s): I10 - Essential (primary) hypertension Code(s): I10 - Essential (primary) hypertension (4) Altered mental status: Status: Acute Qualifiers: Altered mental status type: somnolence Qualified Code(s): R40.0 - Somnolence Code(s): R41.82 - Altered mental status, unspecified (5) UTI (urinary tract infection): Status: Chronic Qualifiers: Hematuria presence: with hematuria Urinary tract infection type: acute cystitis Qualified Code(s): N30.01 - Acute cystitis with hematuria Code(s): N39.0 - Urinary tract infection, site not specified (6) Hyperglycemia: Status: Acute Code(s): R73.9 - Hyperglycemia, unspecified (7) DANIEL (acute kidney injury): Status: Acute Code(s): N17.9 - Acute kidney failure, unspecified (8) Elevated troponin: Status: Acute Code(s): R79.89 - Other specified abnormal findings of blood chemistry (9) 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 transplanted heart: [place] heart Qualified Code(s): I25.810 - Atherosclerosis of coronary artery bypass graft(s) without angina pectoris Code(s): I25.810 - Atherosclerosis of coronary artery bypass graft(s) without angina pectoris (10) Dyslipidemia (high LDL; low HDL): Status: Acute Code(s): E78.5 - Hyperlipidemia, unspecified (11) History of open heart surgery: Status: Acute Code(s): Z98.890 - Other specified postprocedural states (12) Acute on chronic diastolic heart failure: Status: Acute Code(s): I50.33 - Acute on chronic diastolic (congestive) heart failure (13) NSTEMI (non-ST elevated myocardial infarction): Status: Acute Code(s): I21.4 - Non-ST elevation (NSTEMI) myocardial infarction (14) Detrusor dysfunction: Status: Chronic Code(s): N31.8 - Other neuromuscular dysfunction of bladder (15) Hydronephrosis, bilateral: Status: Acute Code(s): N13.30 - Unspecified hydronephrosis (16) Acute bilateral obstructive uropathy: Status: Acute Code(s): N13.9 - Obstructive and reflux uropathy, unspecified (17) CAD (coronary artery disease): Status: Acute Code(s): I25.10 - Atherosclerotic heart disease of [place] coronary artery without angina pectoris (18) Essential hypertension: Status: Acute Code(s): I10 - Essential (primary) hypertension (19) Glucose intolerance: Status: Acute Code(s): E74.39 - Other disorders of intestinal carbohydrate absorption Additional A&P Information Patient should be treated medically for his underlying heart disease. There are too many other underlying comorbidities to proceed with angiography. As long as he remains free of chest discomfort, arrhythmias and heart failure his long-term therapy should be medical. Attestations Medical Necessity Statement*: Not applicable Time Spent in Patient Care: Greater than 35 minutes Coding Level of Care Code Acute Equal Opportunity Representative for Chg Fwd History Comprehensive Exam Comprehensive Medical Decision Making High Complexity Diagnoses Shortness of breath R06.02 Hypoxia R09.02 HTN (hypertension) I10 Hypertension type: essential hypertension Altered mental status R40.0 Altered mental status type: somnolence UTI (urinary tract infection) N30.01 Hematuria presence: with hematuria Urinary tract infection type: acute cystitis Hyperglycemia R73.9 DANIEL (acute kidney injury) N17.9 Elevated troponin R79.89 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 transplanted heart: [place] heart Dyslipidemia (high LDL; low HDL) E78.5 History of open heart surgery Z98.890 Acute on chronic diastolic heart failure I50.33 NSTEMI (non-ST elevated myocardial infarction) I21.4 Detrusor dysfunction N31.8 Hydronephrosis, bilateral N13.30 Acute bilateral obstructive uropathy N13.9 CAD (coronary artery disease) I25.10 Essential hypertension I10 Glucose intolerance E74.39
[2019-03-15 15:55] LABS: Glucose Point of Care 284 mg/dL (70-110)
--- NOTE | 2019-03-15 19:01 | PM.PN ---
Subjective Subjective: Interval history: Weak and not eating; a little drowsy and seems a little confused. Good urine output and this appears to be clear at this time Vitals/I&O/Wt Last Vital Signs Temp 98.2 F 03/15/19 15:07 Pulse 78 03/15/19 15:07 Resp 17 03/15/19 15:07 BP 144/71 03/15/19 15:07 Pulse Ox 96 03/15/19 15:07 03/15/19 03/15/19 03/15/19 06:59 14:59 22:59 Intake Total 2953.75 / 4313.75 240 / 240 1739 Output Total 1999 Balance 953.75 / -236.25 240 / 240 1739 Weight last 48 hrs Weight 131.542 kg Weight 131.814 kg Physical Exam HENMT: COMMON NORMALS: normocephalic HEAD & SCALP: normocephalic Eye: COMMON NORMALS: PERRL and EOMs intact bilaterally PUPIL: Yes PERRL Neck/C-Spine: COMMON NORMALS: no JVD Lymph: LYMPHATIC: no lymphadenopathy noted and no lymphedema noted Resp: COMMON NORMALS: normal respiratory effort and no retractions Cardio: COMMON NORMALS: no JVD and regular rate RATE: regular rate Extremity: COMMON NORMALS: normal to inspection, full ROM and no clubbing, cyanosis or edema Urinary Catheter Management^: Wyman: Cath Placed During This Visit: no Data : 03/15/19 05:50 03/15/19 05:35 Micro: Microbiology 03/13/19 11:50 Urine Culture - Final Urine,Clean Catch 03/09/19 22:50 Blood Culture - Final Blood NO GROWTH AFTER 5 DAYS 03/09/19 22:39 Blood Culture - Final Blood NO GROWTH AFTER 5 DAYS A&P Additional A&P Information 1. DANIEL - baseline not clear, ? in the 3 range - creatinine coming down nicely - picture consistent with obstructive uropathy - on ivf while here - to leave wyman in place ? follow with Dr Baez 2. 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
--- NOTE | 2019-03-15 20:35 | P.PN_ITS ---
Subjective Subjective: Interval history: This morning he denies any chest pain. Reports being somewhat aggravated when multiple things are done at once including his food tray being brought at the time of other activities. Denies other complaints or discomfort. Vitals/I&O/Wt Last Vital Signs Temp 98.2 F 03/15/19 15:07 Pulse 78 03/15/19 15:07 Resp 17 03/15/19 15:07 BP 144/71 03/15/19 15:07 Pulse Ox 96 03/15/19 15:07 03/15/19 03/15/19 03/15/19 06:59 14:59 22:59 Intake Total 2953.75 / 4313.75 240 / 240 1739 Output Total 1999 Balance 953.75 / -236.25 240 / 240 1739 Weight last 48 hrs Weight 131.542 kg Weight 131.814 kg Physical Exam Const: COMMON NORMALS: oriented x3 GENERAL APPEARANCE: cooperative, comfortable and other (Generally weak); not in distress HENMT: COMMON NORMALS: oropharynx normal Resp: COMMON NORMALS: normal respiratory effort AUSCULTATION: no crackles Cardio: COMMON NORMALS: regular rhythm, S1 normal heart sound, S2 normal heart sound and no murmurs RHYTHM: regular rhythm HEART SOUNDS: S1 normal and S2 normal OTHER: Old sternotomy scar GI: COMMON NORMALS: normal to inspection, nondistended, normoactive bowel sounds, soft to palpation and non-tender PALPATION: Yes soft Extremity: COMMON NORMALS: no joint enlargement GENERAL: Yes edema (Trace bilateral) Neuro: COMMON NORMALS: oriented x3 and moves all extremities Skin: COMMON NORMALS: no rashes or lesions noted GENERAL SKIN EXAM: no rashes or lesions noted Urinary Catheter Management^: Torres: Cath Placed During This Visit: no Data : 03/15/19 05:50 03/15/19 05:35 Micro: Microbiology 03/13/19 11:50 Urine Culture - Final Urine,Clean Catch 03/09/19 22:50 Blood Culture - Final Blood NO GROWTH AFTER 5 DAYS 03/09/19 22:39 Blood Culture - Final Blood NO GROWTH AFTER 5 DAYS A&P Assessment and plan (1) DANIEL (acute kidney injury): Continue to improve. Discussed with nephrology. If no further issues with plan for discharge to SNF for rehabilitation and outpatient follow-up. He reports chronic kidney disease stage III. His baseline is difficult to find, although back in November 2016 had acute kidney injury with loss creatinine of 3.2. Continue Flomax. Torres. Continue follow-up with urology after discharge. Status: Acute Code(s): N17.9 - Acute kidney failure, unspecified (2) NSTEMI (non-ST elevated myocardial infarction): Continues on medical therapy. At this time not deemed safe candidate for additional angiographic evaluation. Discussed with cardiology, if no additional issues discharge to SNF for rehabilitation with outpatient follow-up. Status: Acute Code(s): I21.4 - Non-ST elevation (NSTEMI) myocardial infarction (3) Acute bilateral obstructive uropathy: Urine appears clear, without clots. Torres draining. Keep in place. Follow-up with urology in office. Status: Acute Code(s): N13.9 - Obstructive and reflux uropathy, unspecified (4) Hyperglycemia: Increased to 17 units Lantus nightly. Aggressive rapid acting sliding scale. Consistent carbohydrate diet. Status: Acute Code(s): R73.9 - Hyperglycemia, unspecified (5) Altered mental status: Mental status improved. Stably alert, oriented. On my discussions with good insight into his condition. Urinary obstruction relieved. UTI. Serratia, sensitive to ceftriaxone. Medications reviewed for anything that may be contributing to encephalopathy. Status: Acute Qualifiers: Altered mental status type: somnolence Qualified Code(s): R40.0 - Somnolence Code(s): R41.82 - Altered mental status, unspecified (6) UTI (urinary tract infection): Serratia sensitive to Rocephin. Suspected complicated urinary tract infection with acute encephalopathy on presentation. Fever reaolved. Has history of urinary retention, BPH, urinary bladder wall thickening. Performs straight catheterization at home. Monitor for retention. Continue Flomax. Methenamine. Continue follow-up with urology after discharge. Status: Chronic Qualifiers: Urinary tract infection type: acute cystitis Hematuria presence: with hematuria Qualified Code(s): N30.01 - Acute cystitis with hematuria Code(s): N39.0 - Urinary tract infection, site not specified (7) HTN (hypertension): Blood pressure is close to goal. Continue to monitor. Low-sodium diet after stress test. Status: Acute Qualifiers: Hypertension type: essential hypertension Qualified Code(s): I10 - Essential (primary) hypertension Code(s): I10 - Essential (primary) hypertension Additional A&P Information Mild hypokalemia: replaced BPH, on Flomax Morbid obesity: BMI-39 kg/m2 NIDDM type II; as above Hyperlipidemia; on statin Fecal incontinence? Attestations Medical Necessity Statement*: Continue admission for some acute kidney injury, non-STEMI, disposition planning. 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
[2019-03-15 20:57] LABS: Glucose Point of Care 223 mg/dL (70-110)
[2019-03-15] MEDS: insulin glargine 100 units/1 mL 17 UNIT SUBCUT (21:11)
[2019-03-16] VITALS (7 sets, daily range): BP systolic 129–160; BP diastolic 73–82; PULSE 76–86; RESP 15–18; TEMP 36.7–37.2; O2SAT 95–98
[2019-03-16] MEDS: heparin 5,000 unit/mL INJ 1 mL 5000 UNIT SUBCUT ×2 (02:46→10:04)
[2019-03-16] MEDS: cefTRIAXone 1,000 MG in sodium chloride 0.9% (plus) 50 ML 100 MG IV (04:23)
[2019-03-16] MEDS: sodium chloride 0.9% 1,000 ML 75 ML IV (04:24)
[2019-03-16 06:00] LABS: Alanine Aminotransferase 46 U/L (0-41); Albumin Level 2.2 g/dL (3.5-5.2); Alkaline Phosphatase 129 IU/L (40-130); Anion Gap 14.7 (5-19); Aspartate Amino Transferase 38 U/L (0-40); Calcium 10.7 mg/Dl (8.8-10.2); Carbon Dioxide 26 mmol/L (22-29); Chloride 104 mmol/L (98-107); Globulin 4.2 g/dL (1.3-4.6); Glucose 176 mg/dL (74-106); Potassium 3.7 mmol/L (3.5-5.1); Sodium 141 mmol/L (136-145); Total Bilirubin 0.3 mg/dL (0.15-1.2); Total Protein 6.4 g/dL (6.6-8.7)
[2019-03-16 06:04] LABS: Blood Urea Nitrogen 86 mg/dL (8-23)
[2019-03-16 08:07] LABS: Glucose Point of Care 200 mg/dL (70-110)
--- NOTE | 2019-03-16 09:03 | P.PN_ITS ---
Subjective Subjective: Interval history: Yunior is more alert this morning. He actually awakened and we had a conversation. He has no complaints other than being short of breath. His urine output has picked up nicely and his creatinine is coming down. He does not have any chest pain to suggest angina. Medications: Reviewed: Yes Vitals/I&O/Wt Last Vital Signs Temp 98.2 F 03/16/19 07:24 Pulse 86 03/16/19 07:24 Resp 18 03/16/19 07:24 BP 139/80 03/16/19 07:24 Pulse Ox 98 03/16/19 07:24 03/15/19 03/16/19 03/16/19 22:59 06:59 14:59 Intake Total 1740 / 1980 2081.25 / 4061.25 500 / 500 Output Total 1800 / 1800 2100 / 3900 Balance -60 / 180 -18.75 / 161.25 500 / 500 Weight last 48 hrs Weight 281 lb 14.4 oz Weight 290 lb Physical Exam Narrative: EXAM NARRATIVE: GENERAL: In general he is comfortable and in no distress HEENT: Exam within normal limits. NECK: Supple without jugular vein distention. The carotid upstroke is normal without bruits. BACK: Exam normal. LUNGS: Clear. HEART: Regular rate and rhythm. ABDOMEN: Benign without organomegaly or tenderness. EXTREMITIES: No edema. NEUROLOGIC: Exam normal. SKIN: Unremarkable. Urinary Catheter Management^: Torres: Cath Placed During This Visit: no Data : 03/15/19 05:50 03/16/19 04:20 Micro: Microbiology 03/13/19 11:50 Urine Culture - Final Urine,Clean Catch A&P Assessment and plan (1) Glucose intolerance: Status: Acute Code(s): E74.39 - Other disorders of intestinal carbohydrate absorption (2) Essential hypertension: Status: Acute Code(s): I10 - Essential (primary) hypertension (3) CAD (coronary artery disease): Status: Acute Code(s): I25.10 - Atherosclerotic heart disease of [place] coronary artery without angina pectoris (4) Acute bilateral obstructive uropathy: Status: Acute Code(s): N13.9 - Obstructive and reflux uropathy, unspecified (5) Hydronephrosis, bilateral: Status: Acute Code(s): N13.30 - Unspecified hydronephrosis (6) Detrusor dysfunction: Status: Chronic Code(s): N31.8 - Other neuromuscular dysfunction of bladder (7) NSTEMI (non-ST elevated myocardial infarction): Status: Acute Code(s): I21.4 - Non-ST elevation (NSTEMI) myocardial infarction (8) Acute on chronic diastolic heart failure: Status: Acute Code(s): I50.33 - Acute on chronic diastolic (congestive) heart failure (9) History of open heart surgery: Status: Acute Code(s): Z98.890 - Other specified postprocedural states (10) Dyslipidemia (high LDL; low HDL): Status: Acute Code(s): E78.5 - Hyperlipidemia, unspecified (11) 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 transplanted heart: [place] heart Associated angina: without angina Qualified Code(s): I25.810 - Atherosclerosis of coronary artery bypass graft(s) without angina pectoris Code(s): I25.810 - Atherosclerosis of coronary artery bypass graft(s) without angina pectoris (12) DANIEL (acute kidney injury): Status: Acute Code(s): N17.9 - Acute kidney failure, unspecified (13) UTI (urinary tract infection): Status: Chronic Qualifiers: Urinary tract infection type: acute cystitis Hematuria presence: with hematuria Qualified Code(s): N30.01 - Acute cystitis with hematuria Code(s): N39.0 - Urinary tract infection, site not specified (14) Altered mental status: Status: Acute Qualifiers: Altered mental status type: somnolence Qualified Code(s): R40.0 - Somnolence Code(s): R41.82 - Altered mental status, unspecified (15) HTN (hypertension): Status: Acute Qualifiers: Hypertension type: essential hypertension Qualified Code(s): I10 - Essential (primary) hypertension Code(s): I10 - Essential (primary) hypertension (16) Hypoxia: Status: Acute Code(s): R09.02 - Hypoxemia (17) Shortness of breath: Status: Acute Code(s): R06.02 - Shortness of breath Additional A&P Information He remained stable from a cardiac standpoint. I would continue to treat him medically. He is having no angina. The volume overload is resolving now that his creatinine is coming down and his urine output has picked up. No indicatio ns for any other cardiac testing while in the hospital. 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 transplanted heart: [place] heart Associated angina: without angina DANIEL (acute kidney injury) N17.9 UTI (urinary tract infection) N30.01 Urinary tract infection type: acute cystitis Hematuria presence: with hematuria Altered mental status R40.0 Altered mental status type: somnolence HTN (hypertension) I10 Hypertension type: essential hypertension Hypoxia R09.02 Shortness of breath R06.02
[2019-03-16] MEDS: metoprolol tartrate 25 mg Tablet PO (10:04)
[2019-03-16] MEDS: amlodipine 10 mg Tablet 5 MG PO (10:05)
[2019-03-16] MEDS: atorvastatin 40 mg Tablet 80 MG PO (10:05)
[2019-03-16] MEDS: tamsulosin 0.4 mg Capsule PO (10:05)
[2019-03-16] MEDS: clopidogrel 75 mg Tablet PO (10:05)
[2019-03-16] MEDS: aspirin 81 mg Chew Tablet PO (10:06)
[2019-03-16] MEDS: ascorbic acid 500 mg Tablet 1000 MG PO (10:06)
[2019-03-16 11:46] LABS: Glucose Point of Care 325 mg/dL (70-110)
--- NOTE | 2019-03-16 13:55 | PM.DCS ---
Discharge Providers Date of Admission: 03/10/19 04:18 Date of Discharge: 03/16/19 Attending Provider at Admission: Ritu Anne DO Attending Provider at Discharge: Thee Guzman Primary Care Provider: Enzo Grover DO Diagnoses at Discharge Discharge Diagnosis (1) Glucose intolerance: Status: Acute (2) Essential hypertension: Status: Acute (3) CAD (coronary artery disease): Status: Acute (4) Acute bilateral obstructive uropathy: Status: Acute (5) Hydronephrosis, bilateral: Status: Acute (6) Detrusor dysfunction: Status: Chronic (7) NSTEMI (non-ST elevated myocardial infarction): Status: Acute (8) Acute on chronic diastolic heart failure: Status: Acute (9) History of open heart surgery: Status: Acute Problem details: 20 years ago in [place] (10) Dyslipidemia (high LDL; low HDL): Status: Acute (11) 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 transplanted heart: [place] heart Associated angina: without angina Qualified Code(s): I25.810 - Atherosclerosis of coronary artery bypass graft(s) without angina pectoris (12) DANIEL (acute kidney injury): Status: Acute (13) UTI (urinary tract infection): Status: Chronic Qualifiers: Urinary tract infection type: acute cystitis Hematuria presence: with hematuria Qualified Code(s): N30.01 - Acute cystitis with hematuria (14) Altered mental status: Status: Acute Qualifiers: Altered mental status type: somnolence Qualified Code(s): R40.0 - Somnolence (15) HTN (hypertension): Status: Acute Qualifiers: Hypertension type: essential hypertension Qualified Code(s): I10 - Essential (primary) hypertension (16) Hypoxia: Status: Acute (17) Shortness of breath: Status: Acute Reason for Visit Reason for Visit: Reason For Visit: CHF EXACERBATION, PROBABLE NON STEMI, AMS Hospital Course Hospital Course: His troponin was noted to be elevated in 200 -[id number] gentleman with history of HTN, DM 2, CAD, HLD was admitted due to altered mental status, with confusion, unkempt, covered in urine, with finding of hypoxia with shortness of breath, with CHF exacerbation and findings of UTI. He was started on IV diuresis, Rocephin. With noted acute kidney injury on presentation. Hyperglycemia. His CT of the head was without acute findings. His troponin was noted to be elevated in the 200 range, initially thought to be secondary to type II myocardial infarction. He has known history of coronary disease with CABG about 20 years ago. Due to this he was assessed by stress testing with finding of areas of severely decreased uptake in inferior wall, inferolateral and apical segments with significant reversibility suggestive of ischemia in circumflex and right coronary distribution with some involvement of LAD. Diminished ejection fraction of 46%. Echocardiogram reporting normal ejection fraction, grade 1 diastolic dysfunction. His mental status gradually improved with initial treatment of his congestive heart failure, UTI and medical treatment of coronary disease. Noted to have started developing worsening renal function, with progressive acute kidney injury, with decrease in urine output. At this time again with fluctuating mental status. Urine culture eventually grew Serratia marcescens resistant to a number of antibiotics, but sensitive to ceftriaxone which she was continued. He has undergone total 6 days of therapy. He was started on insulin for persistent hyperglycemia with uncontrolled diabetes with A1c of 11.1. Due to worsening renal function, decreasing urine output he was assessed by kidney ultrasound with finding of bilateral hydronephrosis, moderate on the left, mild on the right, markedly distended urinary bladder. Urinary catheter not identified in bladder. Catheter was attempted to be replaced, with finding of some bloody output with some clots but no urine output. Torres catheter was placed under cystoscopic guidance by urology with decompression of the bladder, subsequently with progressive improvement in renal function. Torres catheter will be kept in place until he can be seen by urology in office. Due to poor renal function at this time, risk of exacerbation of kidney injury, as well as lack of symptoms, without chest pain, shortness of breath, further cardiac evaluation for now is deferred until follow-up on outpatient side. Due to generalized deconditioning secondary to multiple medical comorbidities, prolonged hospital stay he is discharged to SNF for rehabilitation. He is currently awake, alert, lucid, agreeable with plan. Physical Exam Const: COMMON NORMALS: oriented x3 GENERAL APPEARANCE: cooperative, comfortable and other (Generally weak); not in distress HENMT: COMMON NORMALS: oropharynx normal Resp: COMMON NORMALS: normal respiratory effort AUSCULTATION: no crackles Cardio: COMMON NORMALS: regular rhythm, S1 normal heart sound, S2 normal heart sound and no murmurs RHYTHM: regular rhythm HEART SOUNDS: S1 normal and S2 normal OTHER: Old sternotomy scar GI: COMMON NORMALS: normal to inspection, nondistended, normoactive bowel sounds, soft to palpation and non-tender PALPATION: Yes soft Extremity: COMMON NORMALS: no joint enlargement GENERAL: Yes edema (Trace bilateral) Neuro: COMMON NORMALS: oriented x3 and moves all extremities Skin: COMMON NORMALS: no rashes or lesions noted GENERAL SKIN EXAM: no rashes or lesions noted Urinary Catheter Management^: Torres: Cath Placed During This Visit: no Discharge Data Data Completed and Pending: Completed Studies During Hospitalization Category Date Time Status CT head wo con* 7 0450 Urgent Cat Scan 03/09/19 22:18 Completed Sestamibi Stress Test Request Routi ne Exams 03/11/19 06:00 Completed XR chest 1V gilma ble [id number] Routine Exams 03/12/19 13:04 Completed XR chest 1V glima ble [id number] Urgent Exams 03/09/19 22:18 Completed NM mika perf SPECT r&s* [id number] Routin e Nuc Med 03/11/19 17:16 Completed CV echo complete* [id number] Routine Ultrasound 03/10/19 05:24 Completed US renal BI with bladder Routine Ultrasound 03/13/19 07:00 Completed Pending at discharge Category Date Time Status Sestamibi Stress Test Request Routi ne Exams 03/10/19 17:15 Stop Req Angiotensin Conve rting Enzyme Routi ne Lab 03/12/19 15:26 Received Anti Double Stran ded DNA AB Stat Lab 03/12/19 15:28 Received Anti-Nuclear Anti body Screen Stat Lab 03/12/19 15:28 Received Anti-streptolysin O Stat Lab 03/12/19 15:28 Received Comprehensive Met abolic Panel AM LA BS Lab 03/17/19 04:00 Ordered Immunofixation Se rum Stat Lab 03/12/19 15:28 Received KAPPA/LAMBDA LIGH T CHAINS FREE Stat Lab 03/12/19 15:28 Received PTH Related Pepti de (Protein) Routi ne Lab 03/12/19 15:26 Received Labs from last 24 hours 03/16/19 03/16/19 03/16/19 11:09 07:23 04:20 Sodium 141 Potassium 3.7 Chloride 104 Carbon Dioxide 26 Anion Gap 14.7 BUN 86 H* Creatinine 2.6 H Glucose 176 H POC Glucose 325 200 Calcium 10.7 H Total Bilirubin 0.3 AST 38 ALT 46 H Alkaline Phosphata se 129 Total Protein 6.4 L Albumin 2.2 L Globulin 4.2 03/15/19 03/15/19 20:53 15:09 Sodium Potassium Chloride Carbon Dioxide Anion Gap BUN Creatinine Glucose POC Glucose 223 284 Calcium Total Bilirubin AST ALT Alkaline Phosphata se Total Protein Albumin Globulin Vitals: Last Vital Signs Temp 98.1 F 03/16/19 11:06 Pulse 79 03/16/19 11:06 Resp 18 03/16/19 11:06 BP 139/80 03/16/19 11:06 Pulse Ox 96 03/16/19 11:06 Discharge Plan Discharge Patient Disposition: Xfer SNF Condition: Stable Prescriptions: New clopidogrel 75 mg Tablet 75 mg PO DAILY Qty: 30 RF: 0 Lantus Solostar U-100 Insulin 100 unit/mL (3 mL) insulin pen 17 unit SUBCUT .hs Qty: 3 RF: 0 Humalog KwikPen Insulin 100 unit/mL insulin pen See Rx Instructions .ROUTE .COMPLEX Qty: 3 RF: 0 Continued methenamine hippurate [Hiprex] 1 gram tablet 1 g PO BID RF: 0 metoprolol tartrate 25 mg tablet 25 mg PO BID RF: 0 tamsulosin [Flomax] 0.4 mg capsule 0.4 mg PO BID RF: 0 amlodipine [Norvasc] 5 mg tablet 5 mg PO DAILY RF: 0 atorvastatin [Lipitor] 80 mg tablet 80 mg PO DAILY RF: 0 ascorbic acid (vitamin C) [Vitamin C] 1,000 mg Tablet 1 g PO DAILY RF: 0 aspirin tablet 81 mg PO DAILY RF: 0 Discontinued furosemide [Lasix] 40 mg tablet 40 mg PO DAILY RF: 0 Discharge Orders: Discharge Order (Routine); Ordered 03/16/19 Ordered By: Thee Guzman Other Ambulatory Orders: US abdomen limited 34500 (Routine) Timeframe: 1 Week Facility: [facility] - Location: Radiology Florencio DAUGHERTY Ordered By: Thee Guzman Comprehensive Metabolic Panel (Routine) Timeframe: 3 Days Facility: [facility] - Location: Lab - Main Lab Ordered By: Thee Guzman Referrals: SNF, PCP [Other] - 4-7 days [facility] [Outside] Kirk Perkins MD [Referring] - 2 weeks Rolo Turner MD [Physician] - 1 month Evan Baez MD [Physician] - 2 weeks Discharge Diet: Diabetic and Low Salt Activity Restrictions/Additional Instructions: Keep Torres catheter in place until follow-up with urology due to obstruction. Accu-Cheks 4 times a day. Fall precautions. Physical therapy as tolerating. Continue nasal cannula oxygen, titrate as needed for saturation 92-95%. Discharge Attestations Time Spent in Discharge Care*: greater than 30 min Quality Metrics Clinical Quality Measures During this hospital stay, did patient experience: None Coding Level of Care Code Acute Tablet Repair for Chg Fwd Diagnoses Glucose intolerance E74.39 Essential hypertension I10 CAD (coronary artery disease) I25.10 Acute bilateral obstructive uropathy N13.9 Hydronephrosis, bilateral N13.30 Detrusor dysfunction N31.8 NSTEMI (non-ST elevated myocardial infarction) I21.4 Acute on chronic diastolic heart failure I50.33 History of open heart surgery Z98.890 Dyslipidemia (high LDL; low HDL) E78.5 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 transplanted heart: [place] heart Associated angina: without angina DANIEL (acute kidney injury) N17.9 UTI (urinary tract infection) N30.01 Urinary tract infection type: acute cystitis Hematuria presence: with hematuria Altered mental status R40.0 Altered mental status type: somnolence HTN (hypertension) I10 Hypertension type: essential hypertension Hypoxia R09.02 Shortness of breath R06.02
--- NOTE | 2019-03-16 15:18 | PC.NURSE ---
REPORT CALLED TO [facility] ; ALL QUESTIONS ANSWERED ; NOTIFIED ; SS NOTIFIED
[2019-03-16 16:03] LABS: Glucose Point of Care 215 mg/dL (70-110)
--- NOTE | 2019-03-16 18:49 | PC.NURSE ---
PATIENT TO [facility] VIA TRANSPORT TEAM ; VSS ; FLORES IN PLACE ; PATIENT DENIED ANY SOB OR CP AT THIS TIME
== END 2019-03-16 18:53 | disposition skilled nursing facility (03) | DRG 280 ==
LOC: ER 03-10 01:18 → CSU 03-10 04:18
PROVIDERS: Family Medicine; Internal Medicine Nephrology; Admitting Provider Internal Medicine; Emergency Provider Emergency Medicine; Family Provider Internal Medicine; PCP Internal Medicine; Visit Provider Internal Medicine
DX: I11.0 Hypertensive heart disease with heart failure (principal); J18.9 Pneumonia, unspecified organism; I21.A1 Myocardial infarction type 2; J96.91 Respiratory failure, unspecified with hypoxia; I50.31 Acute diastolic (congestive) heart failure; N17.9 Acute kidney failure, unspecified; E87.1 Hypo-osmolality and hyponatremia; N30.01 Acute cystitis with hematuria; G93.40 Encephalopathy, unspecified; I50.33 Acute on chronic diastolic (congestive) heart failure; Z79.82 Long term (current) use of aspirin; Z79.899 Other long term (current) drug therapy; E66.01 Morbid (severe) obesity due to excess calories; Z68.39 Body mass index [BMI] 39.0-39.9, adult; E78.5 Hyperlipidemia, unspecified; I25.10 Atherosclerotic heart disease of native coronary artery without angina pectoris; Z95.1 Presence of aortocoronary bypass graft; N18.3 Chronic kidney disease, stage 3 (moderate); E11.22 Type 2 diabetes mellitus with diabetic chronic kidney disease; E11.65 Type 2 diabetes mellitus with hyperglycemia; E83.52 Hypercalcemia; E87.6 Hypokalemia; N40.0 Benign prostatic hyperplasia without lower urinary tract symptoms; B96.89 Other specified bacterial agents as the cause of diseases classified elsewhere; N31.8 Other neuromuscular dysfunction of bladder; N13.9 Obstructive and reflux uropathy, unspecified; R15.9 Full incontinence of feces
CPT/HCPCS: 12345; 36415; 36416; 36600; 51702; 70450; 71045; 76770; 76857; 78452; 80048; 80053; 81001; 81003; 82009; 82140; 82164; 82306; 82310; 82542; 82550; 82570; 82575; 82805; 82962; 83036; 83605; 83735; 83880; 83883; 83970; 84100; 84156; 84260; 84300; 84439; 84443; 84484; 84550; 85025; 85999; 86038; 86060; 86160; 86225; 86431; 86704; 86706; 87040; 87077; 87086; 87186; 87340; 87804; 93005; 93017; 93306; 96372; 96374; 96375; 97110; 97162; 97165; 97530; 99221; 99284; A9500; J0696; J1644; J1650; J1815; J1940; J2001; J2270; J2785; J3480; J7030; Q3014

== ENCOUNTER 2019-03-21 05:03 | Emergency (ER) | payer MEDICARE, SELFPAY ==
--- NOTE | 2019-03-21 05:07 | ED_ITS ---
Entered by Verena Burr, acting as scribe for Prisca Dick HPI - Male Genitourinary General: Chief complaint: Urogenital-Male Stated complaint: CATH PROBLEMS Time Seen by Provider: 03/21/19 05:08 Source: patient and EMS Mode of arrival: EMS History of Present Illness: HPI Narrative: 73 y/o male presents to the ED with complaint of foely issue. Pt was sent by [facility] staff. They were reportedly unable to flush the line and so they removed it and planned to put in a new one. Staff was unsuccessful in placing a new wyman. Pt denies any pain or discomfort. MD Complaint: other (wyman problem) Onset (ago): hour(s) Location: penis Severity: mild Quality: other (no pain) Associated symptoms: Deny nausea or vomiting Review of Systems Const: Denies: fever, chills, body aches, fatigue, malaise or diaphoresis Eyes: Denies: change in vision or blurry vision ENMT: Denies: throat pain, painful swallowing, hoarseness, ear pain, ear discharge, Change in hearing or nasal discharge Card: Denies: chest pain, palpitations, irregular heart rhythm, syncope, pre- syncope, shortness of breath on exertion or shortness of breath when lying down Resp: Denies: shortness of breath, productive cough, non-productive cough, wheezing, coughing up blood or chest congestion GI: Denies: abdominal pain, nausea, vomiting, vomiting blood, coffee grounds in vomit, diarrhea, constipation, cramping, blood in stool or black tarry stool : Reports: other (see HPI) Musc: Denies: neck pain, back pain, extremity pain, extremity swelling, joint pain, joint swelling, joint warmth or joint stiffness Skin/Breast: Denies: rash, skin tenderness or yellow skin Neuro: Denies: headache, numbness in extremities, weakness in extremities, changes in sensation, lack of coordination, difficulty walking, dizziness, vertigo or confusion Endo: Denies: excessive thirst, tired all the time, cold intolerance, excessive sweating, flushing or hot flashes Mauri/Lymph: Denies: easy bruising, easy bleeding, petechiae or enlarged lymph nodes All/Imm: Denies: hives, throat swelling, tongue swelling, facial swelling or acute wheezing PFSH ED PFSH: Statuses (acute, chronic, etc) shown below reflect problem list status as previously entered and may not be historically accurate Medical History (Updated 03/21/19 @ 05:21 by Prisca Dick) Acute bilateral obstructive uropathy (Acute) Acute on chronic diastolic heart failure (Acute) 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) CAD (coronary artery disease) (Acute) Detrusor dysfunction (Chronic) Dyslipidemia (high LDL; low HDL) (Resolved) Essential hypertension (Acute) Glucose intolerance (Acute) Hydronephrosis, bilateral (Acute) Self-catheterizes urinary bladder (Chronic) Urinary retention (Acute) Surgical History History of open heart surgery (Acute) 20 years ago in [place] Family History (Updated 03/13/19 @ 10:46 by Evan Baez MD) Other Dementia Social History Smoking and tobacco status: never smoked Physical Exam Const: COMMON NORMALS: no apparent distress, oriented x3, no limitations, healthy appearing and well nourished EXAM LIMITATIONS: no altered mental status GENERAL APPEARANCE: cooperative, well kempt and well developed ORIENTATION/CONSCIOUSNESS: Yes awake HENMT: COMMON NORMALS: normocephalic, head/scalp atraumatic, hearing grossly normal bilaterally, external ears normal, EAC's normal, external nose normal and moist oral mucous membranes HEAD & SCALP: normal to inspection, normocephalic and atraumatic FACE & SINUS: normal facial exam and face symmetric NOSE: external nose normal and nares normal EXTERNAL EAR: Yes external ears normal EXTERNAL AUDITORY CANAL: EAC's normal MOUTH: oral and palatal mucosa normal and tongue normal Eye: COMMON NORMALS: PERRL, EOMs intact bilaterally, conjunctivae normal and no scleral icterus GENERAL EYE: normal appearance of both eyes and normal light reflex CONJUNCTIVA: Yes conjunctivae normal SCLERA: sclerae normal CORNEA: Yes corneas normal PUPIL: Yes PERRL DIRECT OPHTHALMOSCOPY: Yes normal light reflex Neck/C-Spine: COMMON NORMALS: full ROM, no lymphadenopathy, supple, no meningeal signs and no JVD GENERAL: Yes normal visual inspection and Yes trachea midline CERVICAL SPINE: Yes cervical ROM normal Chest: COMMONS NORMALS: inspection of chest normal and palpation of chest normal Resp: COMMON NORMALS: normal respiratory effort, no retractions, no use of accessory muscles and clear to auscultation bilaterally EFFORT & INSPECTION: Yes able to speak in complete sentences AUSCULTATION: clear to auscultation bilaterally Cardio: COMMON NORMALS: no JVD, regular rate, regular rhythm, S1 normal heart sound, S2 normal heart sound, no gallops, no clicks, no murmurs and no rub JUGULAR VENOUS DISTENTION: no JVD RATE: regular rate RHYTHM: regular rhythm HEART SOUNDS: S1 normal and S2 normal GI: COMMON NORMALS: soft to palpation, non-tender, no hepatosplenomegaly and no masses INSPECTION: Yes normal to inspection PALPATION: Yes soft and Yes no hepatosplenomegaly : COMMON NORMALS: Yes no CVA tenderness BLADDER/KIDNEY EXAM: Yes no CVA tenderness Back/Pelvis: COMMON NORMALS: no CVA tenderness, thoracic and lumbar spine normal to inspection, no thoracic nor lumbar tenderness and thoraco-lumbar ROM normal Extremity: COMMON NORMALS: normal to inspection, full ROM, normal capillary refill, no joint enlargement, no clubbing, cyanosis or edema and no calf tenderness Neuro: COMMON NORMALS: oriented x3, CN's II-XII intact bilaterally, moves all extremities, no focal motor deficits and no sensory deficits noted MENINGEAL SIGNS: Yes no meningeal signs Psych: COMMON NORMALS: mental status grossly normal, thought process normal, cooperative, affect normal, speech normal and activity/motor behavior normal APPEARANCE: Yes well kempt SPEECH: Yes normal speech THOUGHT PROCESS: normal thought process Skin: COMMON NORMALS: no rashes or lesions noted, skin turgor normal, no jaundice, no petechiae and no mottling GENERAL SKIN EXAM: no rashes or lesions noted and turgor normal Course Vital Signs: Vital signs: Vital Signs Temperature 98.5 F 03/21/19 05:09 Pulse Rate 103 H 03/21/19 05:14 Respiratory Rate 18 03/21/19 05:14 Blood Pressure 151/89 03/21/19 05:14 Pulse Oximetry 96 03/21/19 05:14 MDM - Male MDM Narrative: Medical decision making narrative: Patient presents with prostate obstruction and will need a Wyman catheter placed. Wyman catheter replaced here and he will be sent home on empiric antibiotics. Urinalysis will be sent as well as culture. Patient has no sign of sepsis or acute problem. He has no problems or complaints at this time. 0624 -catheter has not been able to be placed by nursing. We will go ahead and have Dr. Baez come in. He would like his catheter cart to the bedside. Discharge Plan Discharge Patient Disposition: Home, Self-Care Clinical Impression: Acute urinary retention Condition: Stable Prescriptions: New cefdinir 300 mg capsule 300 mg PO Q12H 10 Days Qty: 20 RF: 0 No Action Lantus Solostar U-100 Insulin 100 unit/mL (3 mL) insulin pen 25 unit SUBCUT .hs RF: 0 methenamine hippurate [Hiprex] 1 gram tablet 1 g PO BID RF: 0 metoprolol tartrate 25 mg tablet 25 mg PO BID RF: 0 tamsulosin [Flomax] 0.4 mg capsule 0.4 mg PO BID RF: 0 amlodipine [Norvasc] 5 mg tablet 5 mg PO DAILY RF: 0 atorvastatin [Lipitor] 80 mg tablet 80 mg PO DAILY RF: 0 ascorbic acid (vitamin C) [Vitamin C] 1,000 mg Tablet 1 g PO DAILY RF: 0 aspirin tablet 81 mg PO DAILY RF: 0 clopidogrel 75 mg Tablet 75 mg PO DAILY Qty: 30 RF: 0 insulin lispro [Humalog KwikPen Insulin] 100 unit/mL insulin pen See Rx Instructions .ROUTE .COMPLEX Qty: 3 RF: 0 Discharge Orders: Discharge Order (Routine); Ordered 03/21/19 Ordered By: Prisca Dick Referrals: Enzo Grover DO [Primary Care Provider] - Discharge Diet: Usual diet Discharge Activity: Resume usual activity Patient Instructions: Wyman Catheter Placement and Care (ED) Activity Restrictions/Additional Instructions: Please return to the ER immediately for any of the signs or symptoms listed on your discharge instruction sheets, worsening/changing of your symptoms, you are not getting better as quickly as expected, or for ANY other cause or concerns. Coding Level of Care Code ED Pattern Chain Maker Supervisor for Chg Fwd Exam Problem Focused The documentation recorded by the Leno garcia Ashley, accurately reflects the service I personally performed and the decisions made by Kapil fleming Eli N
[2019-03-21 05:09] VITALS: BP 151/89; PULSE 105; RESP 16; TEMP 36.9; O2SAT 96; BMI 37.3
[2019-03-21 05:14] VITALS: BP 151/89; PULSE 103; RESP 18; O2SAT 96
--- NOTE | 2019-03-21 06:34 | PC.NURSE ---
After 16F placed, no urine was output by patient. ed physician notified at this time and bladder scan was requested. bladder scanner showed approximately >999ml in bladder. This nurse had second nurse check catheter (MELONIE Hawkins). PER ed physician to irrigate bladder. 50ML manual flush was inserted into the bladder with no return of any urine. ed physician notified of this finding. Verbal order for 20F given by ed physician. After placement of Wyman, no urine output was made. ed physician notified. verbal order to try and irrigate wyman. After 50ml manual flush with 3ml of slight bright red urine return. ed physician notified and contacted at this time.
[2019-03-21 06:36] LABS: Basophils % 0.2 %; Eosinophils # 0.1 10^3/uL (0.0-0.8); Eosinophils % 0.7 %; Hemoglobin 9.8 g/dL (11.7-16.6); Lymphocytes # 1.2 10^3/uL (0.8-4.8); Lymphocytes % 7.2 %; Mean Corpuscular HGB Conc 31.6 g/dL (30.0-36.0); Mean Corpuscular Hemoglobin 28.2 pg (28.0-34.0); Mean Corpuscular Volume 89.1 fL (80-94); Mean Platelet Volume 9.3 fL (7.4-10.4); Monocytes # 0.6 10^3/uL (0.2-0.9); Monocytes % 3.8 %; Neutrophils # 14.6 10^3/uL (1.8-7.7); Neutrophils % 87.4 %; Nucleated Red Blood Cells % 0 %; Platelet Count 509 10^3/cmm (130-400); Red Blood Count 3.48 10^6/uL (4.1-5.3); Red Cell Distribution Width 15.1 % (12.1-15.1); White Blood Count 16.7 10^3/uL (4.0-10.0)
[2019-03-21 06:45] LABS: INR 1.02 (0.8-1.2)
[2019-03-21 06:46] LABS: Partial Thromboplastin Time 28.2 SECONDS (23.9-36.7)
[2019-03-21 06:50] LABS: Alanine Aminotransferase 52 U/L (0-41); Albumin Level 2.9 g/dL (3.5-5.2); Alkaline Phosphatase 119 IU/L (40-130); Anion Gap 17.5 (5-19); Aspartate Amino Transferase 32 U/L (0-40); Blood Urea Nitrogen 34 mg/dL (8-23); Calcium 10.6 mg/Dl (8.8-10.2); Carbon Dioxide 23 mmol/L (22-29); Chloride 102 mmol/L (98-107); Globulin 4.4 g/dL (1.3-4.6); Glucose 241 mg/dL (74-106); Potassium 3.5 mmol/L (3.5-5.1); Sodium 139 mmol/L (136-145); Total Bilirubin 0.6 mg/dL (0.15-1.2); Total Protein 7.3 g/dL (6.6-8.7)
--- NOTE | 2019-03-21 07:07 | PC.NURSE ---
report received from MELONIE Johnson
[2019-03-21] MEDS: morphine 4 mg/mL SDV 1 mL 2 MG IVP (07:23)
[2019-03-21] MEDS: lidocaine 2% Urojet 20 mL TOPICAL (07:30)
--- NOTE | 2019-03-21 07:47 | PC.NURSE ---
Urologist in room (Baez), 18FR catheter placed by physician. Return 1600 ml of urine. Pt tolerated procedure well.
[2019-03-21 07:48] VITALS: BP 131/75; PULSE 100; O2SAT 93
--- NOTE | 2019-03-21 07:49 | P.CONIM_ITS ---
Providers/Reason For Consult Consulting Physican/Specialty*: Urology/Baez Reason for Consult*: Urinary retention inability to pass catheter History of prostatic false passage Requesting Physcian: Kapil Primary Care Provider: Enzo Grover DO History of Present Illness History of Present Illness Yunior Stewart is a 73 year old male well-known to me with a history of chronic urinary retention secondary to neurogenic bladder and managed with chronic SCIC generally very well for extended period of time. Has had intermittent urinary tract infections but no significant problem with that. Recently attempted catheter placement was unsuccessful and he was found to have a false passage in the prostatic fossa posteriorly in which the catheters were migrating. This required while he was in the hospital a flexible bedside cystoscopy, wire passage, and standing rock tip catheter passage over the guidewire. The plan was to leave the catheter in for least a couple weeks, reassess in the office with a flexible scope with decision for either replacing the catheter at that time for further healing or if possible reinstituting SCIC program. He was discharged from that inpatient stay back to the group home. Apparently the catheter was working well until last night and it was not draining at all. He thinks it may be it was dislodged while he was being moved. Multiple attempts in the group home to replace the catheter were unsuccessful. He was sent to the emergency department for further evaluation with unfortunately the same results. I was consulted for catheter placement and evaluation. No septic symptoms. He is having a lot of suprapubic pain from bladder distent ion and bladder scan showed greater than 1000 cc. I recommended a flexible cystoscopy at the bedside with catheter placement over guidewire if possible. BEDSIDE PROCEDURES: 1. FLEXIBLE CYSTOSCOPY, CLOT EVACUATION 2% lidocaine jelly instilled into the urethra. Flexible cystoscope introduced under direct vision. There was a large false passage with active bleeding and blood clot on the posterior floor the prostate. The true lumen was somewhat difficult to identify but it has previously was distracted anteriorly and then the scope was manipulated into it and passed into the distended bladder. The bladder was examined and other than distention and a mild amount of small blood clot was otherwise unremarkable. The clot was evacuated. A flexible tip guidewire was passed through the cystoscope and curled in the bladder. Scope was removed. 2. DIFFICULT CATHETER PLACEMENT A an 18 Jamaican standing rock tip catheter was advanced over the guidewire into the bladder with good function. The wire allowed bypassing of the false passage. 10 cc were placed in the balloon and the balloon was confirmed to be functioning prior to wire removal and then the wire removed, catheter placed to dependent drainage and secured to a StatLock. He tolerated the procedures well without complications and was turned back over the nursing staff with anticipation of discharge. I will plan on seeing the patient back in follow-up as scheduled already. Anticipate cystoscopy to assess for healing. We also reviewed the possibility of a suprapubic tube placement for chronic bladder management if the false passage continues to be an issue for self-catheterization. Review of Systems Const: Reports: fatigue and malaise Eyes: Denies: yellow eyes Card: Denies: palpitations Resp: Denies: productive cough or wheezing GI: Reports: abdominal pain (Suprapubic, severe related to bladder distention) : Reports: urinary incontinence and blood in urine Musc: Denies: redness, joint warmth or deformity Skin/Breast: Denies: rash or yellow skin Neuro: Denies: headache, confusion, behavioral changes or slurred speech Psych: Reports: memory loss Endo: Denies: excessive thirst Mauri/Lymph: Reports: other (Gross hematuria. And bleeding around the catheter.); Denies: easy bruising All/Imm: Denies: hives Meds/Allergies Home Medications and Allergies Home Medications Medication Instructions Recorded Confirmed Type amlodipine [Norvasc] 5 mg PO DAILY 03/09/19 03/21/19 History ascorbic acid (vitamin C) [Vitamin 1 g PO DAILY 03/09/19 03/21/19 History C] aspirin 81 mg PO DAILY 03/09/19 03/21/19 History atorvastatin [Lipitor] 80 mg PO DAILY 03/09/19 03/21/19 History methenamine hippurate [Hiprex] 1 g PO BID 03/09/19 03/21/19 History metoprolol tartrate 25 mg PO BID 03/09/19 03/21/19 History tamsulosin [Flomax] 0.4 mg PO BID 03/09/19 03/21/19 History insulin glargine [Lantus Solostar 25 unit SUBCUT .hs 03/21/19 03/21/19 History U-100 Insulin] Allergies Allergy/AdvReac Type Severity Reaction Status Date / Time No Known Allergies Allergy Verified 01/11/20 21:59 PFSH Acute PFSH: Statuses (acute, chronic, etc) shown below reflect problem list status as previously entered and may not be historically accurate Medical History Acute bilateral obstructive uropathy (Acute) Acute on chronic diastolic heart failure (Acute) 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) CAD (coronary artery disease) (Acute) Detrusor dysfunction (Chronic) Dyslipidemia (high LDL; low HDL) (Resolved) Essential hypertension (Acute) Glucose intolerance (Acute) Hydronephrosis, bilateral (Acute) Self-catheterizes urinary bladder (Chronic) Urinary retention (Acute) Surgical History History of open heart surgery (Acute) 20 years ago in [place] Family History Other Dementia Social History Smoking and tobacco status: never smoked Vitals/I&O/Wt Last Vital Signs Temp 98.5 F 03/21/19 05:09 Pulse 103 H 03/21/19 05:14 Resp 18 03/21/19 05:14 BP 151/89 03/21/19 05:14 Pulse Ox 96 03/21/19 05:14 Weight last 48 hrs Weight 283 lb Physical Exam Const: COMMON NORMALS: well nourished GENERAL APPEARANCE: cooperative and well developed ORIENTATION/CONSCIOUSNESS: Yes oriented to person, Yes oriented to place and Yes oriented to time HENMT: COMMON NORMALS: normocephalic and head/scalp atraumatic HEAD & SCALP: normocephalic and atraumatic Neck/C-Spine: GENERAL: Yes trachea midline Chest: COMMONS NORMALS: inspection of chest normal Resp: COMMON NORMALS: normal respiratory effort EFFORT & INSPECTION: No uses accessory muscles GI: COMMON NORMALS: soft to palpation INSPECTION: Yes normal to inspection (Some bruising) PALPATION: Yes soft, Yes bladder palpation abnormal and Yes other (Suprapubic tenderness and fullness) : COMMON NORMALS: Yes external exam normal, Yes testes normal, Yes scrotum normal and Yes no scrotal swelling BLADDER/KIDNEY EXAM: Yes bladder abnormal to palpation MALE GROIN/PERINEUM EXAM: No lesions PENIS: uncircumcised, non retractile foreskin, no paraphimosis, no phimosis and No lesions MEATUS: blood at meatus Neuro: SENSORIUM/ORIENTATION: Yes oriented to person, Yes oriented to place and Yes oriented to time GAIT: Yes unable to assess gait MOTOR EXAM: muscle tone normal throughout and No tremor Psych: COMMON NORMALS: mental status grossly normal, thought process normal, cooperative and affect normal APPEARANCE: Yes grossly normal MOOD & AFFECT: Yes depressed mood and Yes anxious THOUGHT PROCESS: normal thought process THOUGHT CONTENT: Yes normal thought content INSIGHT: insight good Urinary Catheter Management^: Torres Latex Free: Cath Placed During This Visit: no Torres: Cath Placed During This Visit: no A&P Assessment and plan (1) Urethral false passage: Ability to pass catheter due to false passage. Required bedside cystoscopy, guidewire placement, standing rock tip catheter placement over guidewire. Maintain Torres catheter in place until reevaluation is scheduled in my office. Consider suprapubic tube for long-term management Status: Acute Code(s): N36.5 - Urethral false passage (2) Detrusor dysfunction: Status: Chronic Code(s): N31.8 - Other neuromuscular dysfunction of bladder (3) Self-catheterizes urinary bladder: Status: Chronic Code(s): Z78.9 - Other specified health status Consult Attestations Medical Necessity Statement: Inability to pass catheter Coding Level of Care Code Established Pt Acute Stock Unloader for Chg Fwd Patient Type Established History Comprehensive Exam Detailed Medical Decision Making Moderate Complexity Diagnoses Urethral false passage N36.5 Detrusor dysfunction N31.8 Self-catheterizes urinary bladder Z78.9 Comment Procedures: Cystoscopy clot evacuation Difficult catheter placement Emergency department evaluation level 4
[2019-03-21 08:21] LABS: Bilirubin Urine Neg (NEGATIVE); Blood Urine 3+ (Negative); Glucose Urine UA 4+ (Normal); Ketones Urine Negative (Negative); Leukocyte Esterase Urine Negative (Negative); Nitrate Urine Negative (Negative); Protein Urine Trace (Negative); Urine Appearance SL Hazy (CLEAR); Urine Color Yellow (Yellow); Urobilinogen Urine Norm (Negative)
[2019-03-21 08:28] LABS: Add Urine Culture? Yes; Bacteria Urine TRACE; RBC Urine >100 /hpf (0-2); Squamous Epithelial Cell Urine 0-4 (0-5)
[2019-03-21 09:09] VITALS: BP 127/63; PULSE 91; O2SAT 95
[2019-03-21 10:19] VITALS: BP 145/74; PULSE 97; RESP 16; O2SAT 95
== END 2019-03-21 10:54 | disposition skilled nursing facility (03) ==
PROVIDERS: Emergency Provider Emergency Medicine; Family Provider Internal Medicine; PCP Internal Medicine
DX: R33.9 Retention of urine, unspecified (principal); Z79.82 Long term (current) use of aspirin; Z79.4 Long term (current) use of insulin; Z79.02 Long term (current) use of antithrombotics/antiplatelets; I11.0 Hypertensive heart disease with heart failure; I50.33 Acute on chronic diastolic (congestive) heart failure; I25.10 Atherosclerotic heart disease of native coronary artery without angina pectoris; E78.5 Hyperlipidemia, unspecified
CPT/HCPCS: 51702; 80053; 81001; 85025; 85610; 85730; 87086; 96374; 99283; J2270

== ENCOUNTER 2019-03-28 03:50 | Inpatient (IN) | payer MEDICARE, SELFPAY ==
[2019-03-28] VITALS (18 sets, daily range): BP systolic 111–158; BP diastolic 56–78; PULSE 71–94; RESP 14–23; TEMP 36.4–36.7; O2SAT 92–98; BMI 36.3
--- NOTE | 2019-03-28 03:51 | ED_ITS ---
Entered by Sara Barnhart, acting as scribe for HPI - Abdominal Pain General: Chief Complaint: Abdominal Pain Stated Complaint: Constipation Time Seen by Provider: 03/28/19 03:51 Source: patient and EMS Mode of arrival: EMS Limitations: no limitations History of Present Illness: HPI narrative: Mr. Stewart is a nice 73-year-old male who comes in with a complaint of abdominal pain. He states that this is primarily constipation. He is not had a bowel movement in anywhere between 5 and 10 days. He states it feels like he needs to go but cannot. He has a Torres catheter in place with bloody urine he was recently admitted secondary to obstruction and had to have a catheter placed by Dr. Baez. He denies any chest pain, shortness of breath, or any other complaints. MD elicited complaint: abdominal pain Pertinent past history: constipation Onset (ago): week(s) (1-2 weeks ago) Pain Consistency: constant Location: Periumbilical Severity: moderate Quality: sharp Radiation: LUQ and RUQ Exacerbating factors: movement Relieving factors: nothing Associated Symptoms: Reports constipation (7-10 days ); Denies chills, dysuria, fever(s), hematuria and syncope Review of Systems General: Reports: other (negative unless marked) Const: Denies: fever, chills, body aches, fatigue, malaise or diaphoresis Eyes: Denies: change in vision or blurry vision ENMT: Denies: throat pain, painful swallowing, hoarseness, ear pain, ear discharge, Change in hearing or nasal discharge Card: Denies: chest pain, palpitations, irregular heart rhythm, syncope, pre- syncope, shortness of breath on exertion or shortness of breath when lying down Resp: Denies: shortness of breath, productive cough, non-productive cough, wheezing, coughing up blood or chest congestion GI: Reports: constipation (7-10 days ) : Denies: flank pain, difficulty urinating, painful urination, urinary frequency, urinary urgency, decreased urine ouput, urinary incontinence or blood in urine Musc: Denies: joint warmth Skin/Breast: Denies: rash, skin tenderness or yellow skin Neuro: Denies: headache, numbness in extremities, weakness in extremities, changes in sensation, lack of coordination, difficulty walking, dizziness, vertigo or confusion Endo: Denies: excessive thirst, tired all the time, cold intolerance, excessive sweating, flushing or hot flashes Mauri/Lymph: Denies: easy bruising, easy bleeding, petechiae or enlarged lymph nodes All/Imm: Denies: acute wheezing PFSH ED PFSH: Statuses (acute, chronic, etc) shown below reflect problem list status as previously entered and may not be historically accurate Medical History Acute bilateral obstructive uropathy (Acute) Acute on chronic diastolic heart failure (Acute) 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) CAD (coronary artery disease) (Acute) Detrusor dysfunction (Chronic) Dyslipidemia (high LDL; low HDL) (Resolved) Essential hypertension (Acute) Glucose intolerance (Acute) Hydronephrosis, bilateral (Acute) Self-catheterizes urinary bladder (Chronic) Urinary retention (Acute) Surgical History History of open heart surgery (Acute) 20 years ago in [place] Family History Other Dementia Social History Smoking and tobacco status: never smoked Physical Exam Const: COMMON NORMALS: no apparent distress, oriented x3, no limitations, healthy appearing and well nourished EXAM LIMITATIONS: no altered mental status GENERAL APPEARANCE: cooperative, well kempt and well developed ORIENTATION/CONSCIOUSNESS: Yes awake HENMT: COMMON NORMALS: normocephalic, head/scalp atraumatic, hearing grossly normal bilaterally, external ears normal, EAC's normal, external nose normal and moist oral mucous membranes HEAD & SCALP: normal to inspection, normocephalic and atraumatic FACE & SINUS: normal facial exam and face symmetric NOSE: external nose normal and nares normal EXTERNAL EAR: Yes external ears normal EXTERNAL AUDITORY CANAL: EAC's normal MOUTH: oral and palatal mucosa normal and tongue normal Eye: COMMON NORMALS: PERRL, EOMs intact bilaterally, conjunctivae normal and no scleral icterus GENERAL EYE: normal appearance of both eyes and normal light reflex CONJUNCTIVA: Yes conjunctivae normal SCLERA: sclerae normal CORNEA: Yes corneas normal PUPIL: Yes PERRL DIRECT OPHTHALMOSCOPY: Yes normal light reflex Neck/C-Spine: COMMON NORMALS: full ROM, no lymphadenopathy, supple, no meningeal signs and no JVD GENERAL: Yes normal visual inspection and Yes trachea midline CERVICAL SPINE: Yes cervical ROM normal Chest: COMMONS NORMALS: inspection of chest normal and palpation of chest normal Resp: COMMON NORMALS: normal respiratory effort, no retractions, no use of a ccessory muscles and clear to auscultation bilaterally EFFORT & INSPECTION: Yes able to speak in complete sentences AUSCULTATION: clear to auscultation bilaterally Cardio: COMMON NORMALS: no JVD, regular rate, regular rhythm, S1 normal heart sound, S2 normal heart sound, no gallops, no clicks, no murmurs and no rub JUGULAR VENOUS DISTENTION: no JVD RATE: regular rate RHYTHM: regular r hythm HEART SOUNDS: S1 normal and S2 normal GI: COMMON NORMALS: soft to palpation and no hepatosplenomegaly PALPATION: Yes soft, Yes tender (Mild diffusely), Yes no hepatosplenomegaly and No pulsa tile mass : COMMON NORMALS: Yes no CVA tenderness BLADDER/KIDNEY EXAM: Yes no CVA tenderness Back/Pelvis: COMMON NORMALS: no CVA tenderness, thoracic and lumbar spine normal to inspection, no thoracic nor lumbar tenderness and thoraco-lumbar ROM normal Extremity: COMMON NORMALS: normal to inspection, full ROM, normal capillary refill, no joint enlargement, no clubbing, cyanosis or edema and no calf tenderness Neuro: COMMON NORMALS: oriented x3, CN's II-XII intact bilaterally, moves all extremities, no focal motor deficits and no sensory deficits noted MENINGEAL SIGNS: Yes no meningeal signs Psych: COMMON NORMALS: mental status grossly normal, thought process normal, cooperative, affect normal, speech normal and activity/motor behavior normal APPEARANCE: Yes well kempt SPEECH: Yes normal speech THOUGHT PROCESS: normal thought process Skin: COMMON NORMALS: no rashes or lesions noted, skin turgor normal, no jaundice, no petechiae and no mottling GENERAL SKIN EXAM: no rashes or les ions noted and turgor normal Course Vital Signs: Vital signs: Vital Signs Temperature 97.9 F 03/28/19 03:56 Pulse Rate 87 03/28/19 04:30 Respiratory Rate 17 03/28/19 04:30 Blood Pressure 140/73 03/28/19 04:30 Pulse Oximetry 97 03/28/19 04:30 MDM - Abdominal Pain MDM Narrative: Medical decision making narrative: Mr. Stewart is a 73-year-old male who comes in with abdominal pain and constipation. He has new onset anemia and still has blood in his Torres catheter. He also has acute renal failure with a BUN of 95 and a creatinine of 9.8 but his potassium is normal at 4.5. His EKG shows no sign of hyperkalemia or ST segment problems. The patient is going for CT with oral but no IV contrast. With a normal EKG and no chest pains is uncertain what his elevated troponin indicates. The case will be turned over to Dr. Mcpherson pending CT and the remainder of his lab results. Lab Data: Labs: Lab Results 03/28/19 03/28/19 03/28/19 Range/Units 04:10 04:10 04:10 WBC 8.4 (4.0-10.0) 10^3/ uL RBC 2.86 L (4.1-5.3) 10^6/u L Hgb 8.0 L (11.7-16.6) g/dL Hct 26.2 L (42.0-52.0) % MCV 91.6 (80-94) fL MCH 28.0 (28.0-34.0) pg MCHC 30.5 (30.0-36.0) g/dL RDW 15.1 (12.1-15.1) % Plt Count 227 (130-400) 10^3/c mm MPV 10.1 (7.4-10.4) fL Neut % (Auto) 79.3 % Lymph % (Auto) 12.3 % Hardin % (Auto) 6.3 % Eos % (Auto) 1.7 % Baso % (Auto) 0.2 % Neut # (Auto) 6.6 (1.8-7.7) 10^3/u L Lymph # (Auto) 1.0 (0.8-4.8) 10^3/u L Hardin # (Auto) 0.5 (0.2-0.9) 10^3/u L Eos # (Auto) 0.1 (0.0-0.8) 10^3/u L Baso # (Auto) 0.0 (0.0-0.1) 10^3/u L Nucleated RBC % (a uto) 0 % Nucleated RBCs # 0.0 /100WBC Sodium 137 (136-145) mmol/L Potassium 4.5 (3.5-5.1) mmol/L Chloride 100 (98-107) mmol/L Carbon Dioxide 16 L (22-29) mmol/L Anion Gap 25.5 H (5-19) BUN 95 H* D (8-23) mg/dL Creatinine 9.8 H* (0.7-1.2) mg/dL Glucose 168 H (74-106) mg/dL Calcium 9.6 (8.5-10.5) mg/dL Magnesium 2.1 (1.7-2.3) mg/dL Total Bilirubin 0.4 (0.15-1.2) mg/dL AST 20 (0-40) U/L ALT 37 (0-41) U/L Alkaline Phosphata se 90 (40-130) IU/L Troponin T Baselin e 230 H* (0-15) ng/mL Total Protein 7.7 (6.6-8.7) g/dL Albumin 2.5 L (3.5-5.2) g/dL Globulin 5.2 H (1.3-4.6) g/dL Lipase 63 H (13-60) U/L Discharge Plan Discharge Prescriptions: No Action Lantus Solostar U-100 Insulin 100 unit/mL (3 mL) insulin pen 25 unit SUBCUT .hs RF: 0 cefdinir 300 mg capsule 300 mg PO Q12H 10 Days Qty: 20 RF: 0 amlodipine 5 mg tablet 5 mg PO DAILY RF: 0 methenamine hippurate [Hiprex] 1 gram tablet 1 g PO BID RF: 0 metoprolol tartrate 25 mg tablet 25 mg PO BID RF: 0 tamsulosin [Flomax] 0.4 mg capsule 0.4 mg PO BID RF: 0 amlodipine [Norvasc] 5 mg tablet 5 mg PO DAILY RF: 0 atorvastatin [Lipitor] 80 mg tablet 80 mg PO DAILY RF: 0 ascorbic acid (vitamin C) [Vitamin C] 1,000 mg Tablet 1 g PO DAILY RF: 0 aspirin tablet 81 mg PO DAILY RF: 0 clopidogrel 75 mg Tablet 75 mg PO DAILY Qty: 30 RF: 0 insulin lispro [Humalog KwikPen Insulin] 100 unit/mL insulin pen See Rx Instructions .ROUTE .COMPLEX Qty: 3 RF: 0 Coding Level of Care Code ED Insurance Sales Producer for Chg Fwd Exam Problem Focused The documentation recorded by the Obey garcia Bridget Annette, accurately reflects the service I personally performed and the decisions made by Kapil fleming Eli N Mar 28, 2019 03:50
--- NOTE | 2019-03-28 03:56 | CTR_ITS ---
PROCEDURE INFORMATION: Exam: CT Abdomen And Pelvis Without Contrast Exam date and time: 03/28/2019 4:00 AM Age: 73 years old Clinical indication: Abdominal pain; Generalized; Prior surgery; Surgery type: Open heart; Patient HX: General abd pain with constipation. No bm in at least five days. Elevated creat. TECHNIQUE: Imaging protocol: Computed tomography of the abdomen and pelvis without contrast. Total DLP: 1914.31 mGy-cm Radiation optimization: All CT scans at this facility use at least one of these dose optimization techniques: automated exposure control; mA and/or kV adjustment per patient size (includes targeted exams where dose is matched to clinical indication); or iterative reconstruction. COMPARISON: CT abdomen pelvis w con* [id number] 01/28/2015 10:56 AM FINDINGS: Mild patchy atelectasis at bilateral lung bases. The liver, spleen, pancreas, and adrenal glands are unremarkable within the limits of a noncontrast study. Hyperdense material in the gallbladder, consistent with sludge. A few small cysts are noted in the right kidney. Severe right hydronephrosis. Severe dilation of the right ureter. Severe left hydronephrosis. Severe dilation of the left ureter. No renal stones identified. A normal-appearing appendix is seen in the right lower quadrant. No evidence of bowel obstruction. No evidence of diverticulitis. Normal amount of stool in the colon. No free intraperitoneal air or fluid identified. Torres catheter is noted. The balloon seems to be inflated in the prostatic urethra. Large amount of urine in the bladder. A few tiny gas bubbles are noted in the bladder, likely related to the presence of the catheter. The prostate is large. Extensive atherosclerotic aortoiliac calcification. No abdominal aortic aneurysm. Mild degenerative changes of the lower thoracic spine. CT/CT abdomen pelvis con [id number] IMPRESSION: 1. Torres catheter is noted. The balloon seems to be inflated in the prostatic urethra. Large amount of urine in the bladder. Repositioning of the catheter is suggested. 2. Severe bilateral hydroureteronephrosis. It is suspected that this is related to impression #1. Radiation Dose CTDIVOL = (mGy): DLP = 1914.31 (mGy-cm)
[2019-03-28 04:22] LABS: Basophils % 0.2 %; Eosinophils # 0.1 10^3/uL (0.0-0.8); Eosinophils % 1.7 %; Hematocrit 26.2 % (42.0-52.0); Lymphocytes % 12.3 %; Mean Corpuscular HGB Conc 30.5 g/dL (30.0-36.0); Mean Corpuscular Volume 91.6 fL (80-94); Mean Platelet Volume 10.1 fL (7.4-10.4); Monocytes # 0.5 10^3/uL (0.2-0.9); Monocytes % 6.3 %; Neutrophils # 6.6 10^3/uL (1.8-7.7); Neutrophils % 79.3 %; Nucleated Red Blood Cells % 0 %; Platelet Count 227 10^3/cmm (130-400); Red Blood Count 2.86 10^6/uL (4.1-5.3); Red Cell Distribution Width 15.1 % (12.1-15.1); White Blood Count 8.4 10^3/uL (4.0-10.0)
[2019-03-28 04:41] LABS: Alanine Aminotransferase 37 U/L (0-41); Albumin Level 2.5 g/dL (3.5-5.2); Alkaline Phosphatase 90 IU/L (40-130); Anion Gap 25.5 (5-19); Aspartate Amino Transferase 20 U/L (0-40); Calcium 9.6 mg/dL (8.5-10.5); Carbon Dioxide 16 mmol/L (22-29); Chloride 100 mmol/L (98-107); Globulin 5.2 g/dL (1.3-4.6); Glucose 168 mg/dL (74-106); Lipase 63 U/L (13-60); Magnesium 2.1 mg/dL (1.7-2.3); Potassium 4.5 mmol/L (3.5-5.1); Sodium 137 mmol/L (136-145); Total Bilirubin 0.4 mg/dL (0.15-1.2); Total Protein 7.7 g/dL (6.6-8.7)
[2019-03-28] MEDS: ondansetron 2 mg/ML SDV 2 mL 4 MG IVP ×2 (04:45→08:26)
[2019-03-28] MEDS: sodium chloride 0.9% 1,000 ML 100 ML IV (04:45)
[2019-03-28 04:51] LABS: Blood Urea Nitrogen 95 mg/dL (8-23)
--- NOTE | 2019-03-28 04:53 | ECG_ITS ---
Measurements Intervals [place] Rate: 91 P: 14 [place]: 156 QRS: -2 QRSD: 118 T: 37 QT: 356 QTc: 438 SINUS RHYTHM Possible LATERAL MYOCARDIAL INFARCTION [40+ ms Q WAVE AND/OR ST/T ABNORMALITY IN I/aVL/V5/V6], PROBABLY OLD Compared to ECG 03/10/2019 04:07:08 Sinus tachycardia no longer present T-wave abnormality no longer present Myocardial infarct finding still present Electronically Signed On 03-28-2019 11:33:57 ALARM TECHNICIAN by Pato Loredo M.D. [email or web address]
[2019-03-28] MEDS: sodium chloride 0.9% 1,000 ML 999 ML IV (04:59)
[2019-03-28 05:20] LABS: Troponin(5th) Baseline 230 ng/mL (0-15)
--- NOTE | 2019-03-28 05:23 | PC.NURSE ---
critical trop 230 result rec'd from lab personnel
[2019-03-28] MEDS: iohexol 300 mg/mL 50 mL Btl PO (06:01)
--- NOTE | 2019-03-28 06:05 | PC.NURSE ---
to CT per stretcher at this time
--- NOTE | 2019-03-28 07:38 | PM.CONSULT ---
Providers/Reason For Consult Consulting Physican/Specialty*: Urology/Baez Reason for Consult*: Catheter malposition, obstructive uropathy with acute renal failure Requesting Physcian: Dr. 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 He has been utilizing self-catheterization for an extended period time and doing well until recently when at some point a catheter was malpositioned causing a false passage in the posterior urethra and since that time the catheter has been forcibly withdrawn back into the urethra on 2 occasions requiring cystoscopy, identification of the true lumen with passage of a guidewire and a muscogee tip catheter placement. The last occurrence of this was on 03/21/2019 and I replaced the catheter in the emergency department at that time. Findings were similar to his previous occurrence while hospitalized before that. This consultation was generated when he presented to the emergency department with increasing lower abdominal pain and feeling like he needed to void despite catheter being in place. Catheter was not draining well and CT scan demonstrated bilateral hydronephrosis hydroureter markedly distended bladder and catheter again malpositioned in the prostatic urethra. Creatinine was >9. Potassium was 4.5. He will be admitted to the hospitalist service I was consulted for further evaluation and treatment of urinary obstruction. The catheter had been putting out some urine but he continued to feel distended. On physical exam his bladder is distended. Recommended catheter removal, cystoscopy, catheter placement as before BEDSIDE PROCEDURES: 1. FLEXIBLE CYSTOSCOPY Catheter removed. Patient prepped and draped in the usual sterile fashion. 2% lidocaine jelly instilled into the urethra. Flexible cystoscope introduced under direct vision. The previous large false passage was confirmed with no active bleeding but a large blood clot on the posterior floor the prostate was noted. The true lumen was able to be identified and was as previously noted to be s distracted anteriorly. The scope was manipulated into it and passed into the distended bladder. The bladder was partially drained and then was examined; other than distention and a mild amount of sediment was otherwise unremarkable. No evidence of invasive process at the trigone etc. A flexible tip guidewire was passed through the cystoscope and curled in the bladder. Scope was removed. 2. DIFFICULT CATHETER PLACEMENT A 20 Algerian muscogee tip catheter was advanced over the guidewire into the bladder with good function. The wire allowed bypassing of the false passage. 15 cc were placed in the balloon and the balloon was confirmed to be functioning prior to wire removal and then the wire removed, catheter placed to dependent drainage and secured to a StatLock. He tolerated the procedures well without complications and was turned back over the nursing staff with anticipation of admission to the floor/hospitalist service.. Review of Systems Const: Reports: malaise Eyes: Reports: change in vision Card: Denies: chest pain or palpitations Resp: Reports: shortness of breath; Denies: productive cough GI: Reports: abdominal pain, constipation and bloating; Denies: blood in stool Psych: Reports: depression; Denies: anxiety or panic attacks Endo: Reports: tired all the time; Denies: excessive thirst Mauri/Lymph: Denies: easy bleeding or enlarged lymph nodes All/Imm: Denies: hives Meds/Allergies Home Medications and Allergies Home Medications Medication Instructions Recorded Confirmed Type amlodipine [Norvasc] 5 mg PO DAILY 03/09/19 03/21/19 History ascorbic acid (vitamin C) [Vitamin 1 g PO DAILY 03/09/19 03/21/19 History C] aspirin 81 mg PO DAILY 03/09/19 03/28/19 History atorvastatin [Lipitor] 80 mg PO DAILY 03/09/19 03/28/19 History methenamine hippurate [Hiprex] 1 g PO BID 03/09/19 03/28/19 History metoprolol tartrate 25 mg PO BID 03/09/19 03/28/19 History tamsulosin [Flomax] 0.4 mg PO BID 03/09/19 03/28/19 History insulin glargine [Lantus Solostar 25 unit SUBCUT .hs 03/21/19 03/28/19 History U-100 Insulin] amlodipine 5 mg PO DAILY 03/28/19 03/28/19 History Allergies Allergy/AdvReac Type Severity Reaction Status Date / Time No Known Allergies Allergy Verified 03/09/19 21:59 Current Medications Current Medications Generic Name Dose Route Start Last Admin Trade Name Freq PRN Reason Stop Dose Admin Sodium Chloride 1,000 mls @ 100 mls/hr 03/28/19 04:00 03/28/19 04:45 Sodium Chloride 0.9% IV 100 mls/hr .Q10H KILO Administration PFSH Acute PFSH: Statuses (acute, chronic, etc) shown below reflect problem list status as previously entered and may not be historically accurate Family History Other Dementia Social History Smoking and tobacco status: never smoked Vitals/I&O/Wt Last Vital Signs Temp 97.9 F 03/28/19 03:56 Pulse 87 03/28/19 04:30 Resp 17 03/28/19 04:30 BP 140/73 03/28/19 04:30 Pulse Ox 97 03/28/19 04:30 Weight last 48 hrs Weight 275 lb Physical Exam Const: COMMON NORMALS: no apparent distress, oriented x3, alert and well nourished GENERAL APPEARANCE: well kempt and well developed; not lethargic ORIENTATION/CONSCIOUSNESS: not confused and not lethargic HENMT: COMMON NORMALS: normocephalic and head/scalp atraumatic HEAD & SCALP: normocephalic and atraumatic Eye: COMMON NORMALS: conjunctivae normal and no scleral icterus CONJUNCTIVA: Yes conjunctivae normal Neck/C-Spine: COMMON NORMALS: full ROM GENERAL: Yes normal visual inspection Resp: COMMON NORMALS: normal respiratory effort EFFORT & INSPECTION: Yes able to speak in complete sentences, No respiratory distress, No labored, No actively coughing and No audible wheezes Cardio: COMMON NORMALS: regular rate RATE: regular rate : COMMON NORMALS: Yes no CVA tenderness, Yes testes normal, Yes scrotum normal and Yes no scrotal swelling BLADDER/KIDNEY EXAM: Yes no CVA tenderness MALE GROIN/PERINEUM EXAM: No edema PENIS: normal penis and uncircumcised MEATUS: blood at meatus (After catheter removal. Consistent with urethral trauma. Not severe) Back/Pelvis: COMMON NORMALS: no CVA tenderness Extremity: COMMON NORMALS: no clubbing, cyanosis or edema Neuro: COMMON NORMALS: oriented x3 and no focal motor deficits SENSORIUM/ORIENTATION: Yes alert, No orientation impaired and No lethargic Psych: COMMON NORMALS: mental status grossly normal APPEARANCE: Yes grossly normal and Yes well kempt ATTITUDE: Yes calm and Yes engaged Skin: COMMON NORMALS: no rashes or lesions noted and no jaundice GENERAL SKIN EXAM: no rashes or lesions noted Urinary Catheter Management^: 20 Algerian muscogee tip catheter placed over wire.: Cath Placed During This Visit: no Urethral Indwelling: Yes Data Other Data: Other data: Previous ultrasound and current CT scan. Agree with findings. A&P Assessment and plan (1) Urethral false passage: Posterior prostatic fossa false passage With catheter forcibly withdrawn into the prostatic fossa. Requires catheterization placed over guidewire due to the false passage. I think after he recovers from his acute kidney injury we should consider suprapubic tube for more long-term management to avoid these ongoing issues. Status: Acute Code(s): N36.5 - Urethral false passage (2) Urinary retention: Status: Acute Code(s): R33.9 - Retention of urine, unspecified (3) Detrusor dysfunction: Status: Chronic Code(s): N31.8 - Other neuromuscular dysfunction of bladder Consult Attestations Medical Necessity Statement: See attending Time Spent in Patient Care: Greater than 35 minutes (55minutes) Coding Level of Care Code Acute Oxide Furnace Tender for Chg Fwd Exam Problem Focused Diagnoses Urethral false passage N36.5 Urinary retention R33.9 Detrusor dysfunction N31.8
[2019-03-28] MEDS: morphine 4 mg/mL SDV 1 mL 2 MG IVP (08:23)
[2019-03-28] MEDS: lidocaine 2% Urojet 20 mL XX (08:27)
--- NOTE | 2019-03-28 09:56 | P.HP_ITS ---
Providers/Chief Complaint Admitting Physician: Damari Winters DO Primary Care Provider: Enzo Grover DO Chief Complaint: Constipation History of Present Illness Yunior Stewart is a 73 year old male with a past medical history of tonic urinary retention secondary to neurogenic bladder, diastolic congestive heart failure, chronic kidney disease and diabetes that presented from the senior living facility due to concern for abdominal pain. Patient reported that he has had a catheter since his previous discharge, and had to be replaced on 03/21/2019. He reported that he began having abdominal discomfort of the past couple of days and he also reported that he has not had a bowel movement in the past 5 to 7 days. Patient denies any fevers or chills, no sick contacts. Celso guzman reported that he has been on an antibiotic from his previous hospitalization. Patient denies any chest pain or shortness of breath. Patient was seen and evaluated in the emergency department noted to have concern for acute kidney injury with obstructive uropathy and severe bilateral hydronep hrosis, urology was consulted. Patient was seen by Dr. Baez in consultation in the ED and had flexible cystoscopy with catheter placement over guidewire due to false passage. He immediately had 2 L of urine output. Review of Systems Const: Denies: fever or chills Eyes: Denies: change in vision ENMT: Denies: nasal congestion Card: Denies: chest pain, palpitations or edema Resp: Denies: shortness of breath, productive cough or coughing up blood GI: Reports: abdominal pain and constipation; Denies: nausea, vomiting, diarrhea, blood in stool or black tarry stool : Reports: other (Decreased urine output from Torres catheter) Musc: Denies: extremity pain or muscle cramps Skin/Breast: Denies: rash or new lesion Neuro: Denies: headache or dizziness Psych: Denies: anxiety or depression Endo: Denies: excessive urination or hot flashes Mauri/Lymph: Denies: easy bruising or easy bleeding Medications/Allergies Home Medications Medication Instructions Recorded Confirmed Last Taken Type amlodipine 5 mg PO DAILY 03/28/19 03/28/19 03/27/19 History Allergies Allergy/AdvReac Type Severity Reaction Status Date / Time No Known Allergies Allergy Verified 03/09/19 21:59 PFSH Acute PFSH: Statuses (acute, chronic, etc) shown below reflect problem list status as previously entered and may not be historically accurate Medical History Acute bilateral obstructive uropathy (Acute) Acute on chronic diastolic heart failure (Acute) 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) CAD (coronary artery disease) (Acute) Detrusor dysfunction (Chronic) Dyslipidemia (high LDL; low HDL) (Resolved) Essential hypertension (Acute) Glucose intolerance (Acute) Hydronephrosis, bilateral (Acute) Self-catheterizes urinary bladder (Chronic) Urinary retention (Acute) Surgical History History of open heart surgery (Acute) 20 years ago in [place] Family History (Updated 03/28/19 @ 10:01 by Damari Winters DO) Mother Dementia Social History Smoking and tobacco status: never smoked Vitals/I&O/Wt Last Vital Signs Temp 97.9 F 03/28/19 03:56 Pulse 87 03/28/19 04:30 Resp 16 03/28/19 08:23 BP 140/73 03/28/19 04:30 Pulse Ox 98 03/28/19 08:23 Weight last 48 hrs Weight 124.738 kg Physical Exam Const: COMMON NORMALS: alert GENERAL APPEARANCE: cooperative ORIENTATION/CONSCIOUSNESS: Yes awake, Yes oriented to person and Yes oriented to place HENMT: COMMON NORMALS: normocephalic and head/scalp atraumatic HEAD & SCALP: normocephalic and atraumatic Eye: COMMON NORMALS: PERRL PUPIL: Yes PERRL Neck/C-Spine: COMMON NORMALS: supple GENERAL: Yes normal visual inspection Resp: COMMON NORMALS: normal respiratory effort and clear to auscultation bilaterally EFFORT & INSPECTION: Yes able to speak in complete sentences AUSCULTATION: clear to auscultation bilaterally, no rhonchi and no wheezes Cardio: COMMON NORMALS: regular rate and regular rhythm RATE: regular rate RHYTHM: regular rhythm GI: INSPECTION: Yes abdominal distension AUSCULTATION: Yes normoactive bowel sounds PALPATION: Yes soft, No tender, No guarding and No rigid : BLADDER/KIDNEY EXAM: Yes catheter in place Extremity: COMMON NORMALS: no calf tenderness OTHER: Nonpitting edema in the lower extremities bilaterally Neuro: COMMON NORMALS: oriented x3, CN's II-XII intact bilaterally, moves all extremities and no focal motor deficits SENSORIUM/ORIENTATION: Yes alert, Yes oriented to person and Yes oriented to place SPEECH: speech normal Psych: COMMON NORMALS: mental status grossly normal and cooperative Skin: COMMON NORMALS: no rashes or lesions noted GENERAL SKIN EXAM: no rashes or lesions noted Urinary Catheter Management^: 20 Indonesian [place] tip catheter placed over wire.: Cath Placed During This Visit: no Data : 03/28/19 04:10 03/28/19 04:10 A&P Assessment and plan (1) DANIEL (acute kidney injury): Acute on chronic kidney injury Secondary to obstructive uropathy. Torres catheter replaced by urologist in the ER Creatinine of 9.8 with a BUN of 95, difficult to determine baseline, however mary ears to be around 3 back in 2017 Potassium of 4.5 at this time we will continue to monitor closely Recheck BMP this afternoon Status: Acute Code(s): N17.9 - Acute kidney failure, unspecified (2) Hydronephrosis, bilateral: Severe bilateral hydronephrosis on CT scan of the abdomen and pelvis Patient with chronic neurogenic bladder, chronic Torres catheter placement with Torres catheter being malpositioned into a false passage in the posterior urethra on admission. Dr. Baez, urologist, consulted in the ED. Appreciate recommendations and assistance in patient's care. Patient's catheter was repositioned and he had 2 L of urine output, will continue to monitor urine output and renal function closely Status: Acute Code(s): N13.30 - Unspecified hydronephrosis (3) Acute bilateral obstructive uropathy: Plan as above Status: Acute Code(s): N13.9 - Obstructive and reflux uropathy, unspecified Additional A&P Information Anemia: Hemoglobin of 8, noted to have a large clot on cystoscopy in the ED. Will hold aspirin and Plavix at this time due to significant drop in hemoglobin. Repeat hemoglobin on 03/21/2019 of 9.8, during his previous hospitalization hemoglobin was around 12-14 Constipation: Continue with bowel management protocol Elevated troponin: Appears to be chronic in nature, patient denies any chest pain or shortness of breath, prior non-ST elevation [place], likely elevation in troponin is secondary to acute kidney injury. Continue to monitor on telemetry. Stress test performed during prior admission and medical management was recommended. We will continue on metoprolol, atorvastatin, holding aspirin and Plavix due to concern for acute anemia. Coronary artery disease: Prior CABG. Continue on statin and metoprolol, holding aspirin and Plavix due to concern as above Diabetes mellitus type 2, insulin-dependent: Continue on Lantus 35 units at bedtime, sliding scale insulin as needed Diastolic congestive heart failure: Appears to be euvolemic at this time Hyperlipidemia: Continue home statin Hypertension: Continue home amlodipine 5 mg daily DVT prophylaxis: SCDs, no pharmacologic prophylaxis due to acute anemia Diet: Carbohydrate consistent, cardiac CODE STATUS: Full code Attestations Medical Necessity Statement*: Patient requires hospitalization due to acute kidney failure with bilateral hydronephrosis and obstructive uropathy. Expected stay greater than 2 midnights Coding Level of Care Code Acute Labor Mediator for [facility] Fwd Diagnoses DANIEL (acute kidney injury) N17.9 Hydronephrosis, bilateral N13.30 Acute bilateral obstructive uropathy N13.9
[2019-03-28 10:41] LABS: Troponin 5 6HR Delta 11.3 ng/L (0-12)
[2019-03-28 10:57] LABS: Troponin 5 6HR 241.3 ng/L (0-15)
[2019-03-28 11:59] LABS: Add Urine Microscopic? YES; Bilirubin Urine Neg (NEGATIVE); Blood Urine 3+ (Negative); Glucose Urine UA Norm (Normal); Ketones Urine Negative (Negative); Leukocyte Esterase Urine Trace (Negative); Nitrate Urine Negative (Negative); Protein Urine 1+ (Negative); Specific Gravity, Urine 1.005 (1.005-1.030); Urine Appearance Hazy (CLEAR); Urine Color Other (Yellow); Urobilinogen Urine Norm (Negative); pH Urine 6 (5-7)
[2019-03-28 12:09] LABS: RBC Urine 40-50 /hpf (0-2)
[2019-03-28 12:10] LABS: Add Urine Culture? Yes; Bacteria Urine 1+; Squamous Epithelial Cell Urine 0-4 (0-5)
[2019-03-28] MEDS: magnesium citrate Btl 296 mL 150 ML PO (12:22)
[2019-03-28] MEDS: bisacodyl 10 mg Supp PR (12:44)
[2019-03-28 12:52] LABS: Glucose Point of Care 141 mg/dL (70-110)
[2019-03-28 16:59] LABS: Anion Gap 20.3 (5-19); Calcium 9.6 mg/dL (8.5-10.5); Carbon Dioxide 20 mmol/L (22-29); Chloride 110 mmol/L (98-107); Glucose 91 mg/dL (74-106); Osmolality Calculated 301 mOsm/kg (285-295); Potassium 5.3 mmol/L (3.5-5.1); Sodium 145 mmol/L (136-145)
[2019-03-28] MEDS: docusate sodium 100 mg Capsule PO (17:02)
[2019-03-28 17:14] LABS: Blood Urea Nitrogen 102 mg/dL (8-23)
[2019-03-28 17:18] LABS: Glucose Point of Care 92 mg/dL (70-110)
[2019-03-28] MEDS: dextrose 50% syringe 50 mL IVP (18:12)
[2019-03-28] MEDS: tamsulosin 0.4 mg Capsule PO (18:12)
[2019-03-28] MEDS: metoprolol tartrate 25 mg Tablet PO (18:12)
[2019-03-28] MEDS: cefdinir 300 MG CAPSULE PO (18:12)
[2019-03-28] MEDS: calcium gluconate 0.1 gm/mL 10% SDV 10mL 1 GM IVP (18:13)
[2019-03-28] MEDS: insulin regular-human 10 UNIT in SYRINGE 1 EACH IVP (18:13)
[2019-03-28] MEDS: insulin glargine 100 units/1 mL 35 UNIT SUBCUT (20:08)
[2019-03-28] MEDS: acetaminophen 325 mg Tablet 650 MG PO (20:08)
[2019-03-28 20:54] LABS: Glucose Point of Care 170 mg/dL (70-110)
[2019-03-28] MEDS: bisacodyl 5 mg Tablet PO (22:41)
[2019-03-28 23:07] LABS: Potassium 4.4 mmol/L (3.5-5.1)
[2019-03-29] VITALS (13 sets, daily range): BP systolic 111–153; BP diastolic 52–72; PULSE 80–95; RESP 12–20; TEMP 36.4–37; O2SAT 93–97
[2019-03-29 06:04] LABS: Basophils % 0.3 %; Eosinophils # 0.2 10^3/uL (0.0-0.8); Hematocrit 22.8 % (42.0-52.0); Hemoglobin 7.1 g/dL (11.7-16.6); Lymphocytes # 1.3 10^3/uL (0.8-4.8); Lymphocytes % 20.6 %; Mean Corpuscular HGB Conc 31.1 g/dL (30.0-36.0); Mean Corpuscular Hemoglobin 27.8 pg (28.0-34.0); Mean Corpuscular Volume 89.4 fL (80-94); Mean Platelet Volume 10.2 fL (7.4-10.4); Monocytes # 0.4 10^3/uL (0.2-0.9); Monocytes % 6.4 %; Neutrophils # 4.4 10^3/uL (1.8-7.7); Neutrophils % 69.4 %; Nucleated Red Blood Cells % 0 %; Platelet Count 215 10^3/cmm (130-400); Red Blood Count 2.55 10^6/uL (4.1-5.3); Red Cell Distribution Width 15.5 % (12.1-15.1); White Blood Count 6.3 10^3/uL (4.0-10.0)
[2019-03-29 06:21] LABS: Anion Gap 16.2 (5-19); Blood Urea Nitrogen 78 mg/dL (8-23); Calcium 9.3 mg/dL (8.5-10.5); Carbon Dioxide 22 mmol/L (22-29); Chloride 109 mmol/L (98-107); Glucose 106 mg/dL (74-106); Osmolality Calculated 296 mOsm/kg (285-295); Potassium 4.2 mmol/L (3.5-5.1); Sodium 143 mmol/L (136-145)
[2019-03-29] MEDS: cefdinir 300 MG CAPSULE PO ×2 (06:39→17:28)
[2019-03-29 07:06] LABS: Glucose Point of Care 113 mg/dL (70-110)
[2019-03-29] MEDS: atorvastatin 40 mg Tablet 80 MG PO (09:00)
[2019-03-29] MEDS: docusate sodium 100 mg Capsule PO ×2 (09:00→17:28)
[2019-03-29] MEDS: amlodipine 5 mg Tablet PO (09:01)
[2019-03-29] MEDS: metoprolol tartrate 25 mg Tablet PO ×2 (09:01→17:05)
[2019-03-29] MEDS: tamsulosin 0.4 mg Capsule PO ×2 (09:01→17:28)
--- NOTE | 2019-03-29 11:00 | P.PN_ITS ---
Subjective Subjective: Interval history: Patient awake in bed at time of exam this morning. He reports that he is no longer having pain in his abdomen. He reported that he was able to have a large bowel movement overnight. He denies any dark or tarry like stools, no bright red blood per rectum. Patient denies any chest pain or shortness of breath. Vitals/I&O/Wt Last Vital Signs Temp 97.9 F 03/29/19 10:08 Pulse 90 03/29/19 10:08 Resp 12 03/29/19 10:08 BP 124/69 03/29/19 10:08 Pulse Ox 94 03/29/19 07:21 03/28/19 03/29/19 03/29/19 22:59 06:59 14:59 Intake Total 240 / 240 250 / 490 240 / 240 Output Total 4500 / 6700 1400 / 8100 850 / 850 Balance -4260 / -6460 -1150 / -7610 -610 / -610 Weight last 48 hrs Weight 129.954 kg Weight 129.954 kg Weight 124.738 kg Physical Exam Const: COMMON NORMALS: oriented x3 and alert GENERAL APPEARANCE: cooperative ORIENTATION/CONSCIOUSNESS: Yes awake, Yes oriented to person and Yes oriented to place HENMT: COMMON NORMALS: normocephalic and head/scalp atraumatic HEAD & SCALP: normocephalic and atraumatic Eye: COMMON NORMALS: PERRL PUPIL: Yes PERRL Neck/C-Spine: COMMON NORMALS: supple GENERAL: Yes normal visual inspection Resp: COMMON NORMALS: normal respiratory effort and clear to auscultation bilaterally EFFORT & INSPECTION: Yes able to speak in complete sentences AUSCULTATION: clear to auscultation bilaterally, no rhonchi and no wheezes Cardio: COMMON NORMALS: regular rate and regular rhythm RATE: regular rate RHYTHM: regular rhythm GI: COMMON NORMALS: soft to palpation AUSCULTATION: Yes normoactive bowel sounds PALPATION: Yes soft, No tender, No guarding and No rigid : BLADDER/KIDNEY EXAM: Yes catheter in place Extremity: COMMON NORMALS: no calf tenderness OTHER: Nonpitting edema in the lower extremities bilaterally Neuro: COMMON NORMALS: oriented x3, CN's II-XII intact bilaterally, moves all extremities and no focal motor deficits SENSORIUM/ORIENTATION: Yes alert, Yes oriented to person and Yes oriented to place SPEECH: speech normal Psych: COMMON NORMALS: mental status grossly normal and cooperative Urinary Catheter Management^: 20 Icelandic [place] tip catheter placed over wire.: Cath Placed During This Visit: no Data : 03/29/19 04:20 03/29/19 04:20 A&P Assessment and plan (1) DANIEL (acute kidney injury): Acute on chronic kidney injury Secondary to obstructive uropathy. Torres catheter replaced by urologist in the ER Creatinine improved to 6.6 today. Hyperkalemia last night, now improved. Continues to have good urine output. We will continue to monitor closely and caution with any nephrotoxic medications. Continue on previously prescribed antibiotics Status: Acute Code(s): N17.9 - Acute kidney failure, unspecified (2) Hydronephrosis, bilateral: Severe bilateral hydronephrosis on CT scan of the abdomen and pelvis Patient with chronic neurogenic bladder, chronic Torres catheter placement with Torres catheter being malpositioned into a false passage in the posterior urethra on admission. Dr. Baez, urologist, consulted in the ED. Appreciate recommendations and as sistance in patient's care. Status: Acute Code(s): N13.30 - Unspecified hydronephrosis (3) Acute bilateral obstructive uropathy: Plan as above Status: Acute Code(s): N13.9 - Obstructive and reflux uropathy, unspecified Additional A&P Information Anemia: Hemoglobin trended down to 7.1 today. Due to his history of coronary artery disease we will transfuse 1 unit of packed red blood cells. Patient without any evidence of active bleeding, however large clot noted on cystoscopy yesterday, will continue to hold aspirin and Plavix at this time. Constipation: Now resolved Elevated troponin: Appears to be chronic in nature and likely secondary to DANIEL. Denies chest pain. Prior non-ST elevation [place]. Continue telemetry. Stress test performed during prior admission and medical management was recommended. We will continue on metoprolol, atorvastatin, holding aspirin and Plavix due to concern for acute anemia. Coronary artery disease: Prior CABG. Continue on statin and metoprolol, holding aspirin and Plavix due to concern as above Diabetes mellitus type 2, insulin-dependent: Continue on Lantus 35 units at bedtime, sliding scale insulin as needed Diastolic congestive heart failure: Appears to be euvolemic at this time Hyperlipidemia: Continue home statin Hypertension: Continue home amlodipine 5 mg daily DVT prophylaxis: SCDs, no pharmacologic prophylaxis due to acute anemia Diet: Carbohydrate consistent, cardiac CODE STATUS: Full code Attestations Medical Necessity Statement*: Patient requires further hospitalization due to acute kidney injury with severe bilateral hydronephrosis and acute anemia Coding Level of Care Code Acute Plasma Processing Centrifuge Operator for Chg Fwd Diagnoses DANIEL (acute kidney injury) N17.9 Hydronephrosis, bilateral N13.30 Acute bilateral obstructive uropathy N13.9
[2019-03-29 11:09] LABS: Glucose Point of Care 162 mg/dL (70-110)
[2019-03-29 12:42] LABS: Iron 35 ug/dL (59-158); Percent Saturation 21.3 % (20-50); Total Iron Binding Capacity 164 mcg/dl; Unsaturated Iron Binding 129 ug/dL (112-347)
--- NOTE | 2019-03-29 13:02 | PC.CHAP ---
Pastoral Care Encounter/Spiritual Assessment Type of Contact [] Declined cvt tech visit [] Patient/Family/Request visit [] Outpatient visit [] Follow-up visit [] Physician referral [] Code/Alert [x] Routine visit [] Staff referral [] Actively dying [] Patient sleeping [] Family support [] [] Out of room [] Palliative care [] [] Receiving care in room [] Pre-surgical visit [] Trauma [] Long length of stay [] ICU visit [] Other: Relational/Emotional Strength [] Patient feels connected with others/family/visitors/staff [] Distress [] Loneliness/isolation [] Abandonment Spirituality of Patient [x] Person of Jaclyn [] Attends Orthodox of their [place] [] Believes in Prayer [] Reads Bible or Yazidism materials [] There are Spiritual issues to be addressed 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 Interventions [x] Prayer x[x]x Active listening [x] Non-anxious presence x[] Spiritual/emotional support [] Crisis/trauma care [] Spiritual counseling [] Bereavement support [] Provided bereavement packet [] Provided Bible/devotional materials [] Provided toy/stuffed animal, coloring book to patient or family member [] Provided Communion [] Anointing/[place] [] Salvation [] Completed spiritual assessment [] Other: Impact on Illness or Injury [] Angry [x] Fearful [] Anxious [] Often cries [] Exhaustion [] Unable to work [] Unable to attend amish [] Unable to walk/stand [] Unable to read [] Unable to drive [] Unable to eat/drink [] Unable to sleep [] Unable to be with family [] Patient intubated [] Other: Summary patient seems unhappy Time spent with patient
[2019-03-29 17:19] LABS: Glucose Point of Care 160 mg/dL (70-110)
[2019-03-29 20:53] LABS: Glucose Point of Care 171 mg/dL (70-110)
[2019-03-29] MEDS: insulin glargine 100 units/1 mL 35 UNIT SUBCUT (21:04)
[2019-03-30 03:48] VITALS: BP 151/71; PULSE 80; RESP 20; TEMP 36.9; O2SAT 93
[2019-03-30 04:50] LABS: Basophils % 0.4 %; Eosinophils # 0.4 10^3/uL (0.0-0.8); Eosinophils % 5.4 %; Hematocrit 26.7 % (42.0-52.0); Hemoglobin 8.4 g/dL (11.7-16.6); Lymphocytes # 1.8 10^3/uL (0.8-4.8); Lymphocytes % 26.2 %; Mean Corpuscular HGB Conc 31.5 g/dL (30.0-36.0); Mean Corpuscular Hemoglobin 27.8 pg (28.0-34.0); Mean Corpuscular Volume 88.4 fL (80-94); Mean Platelet Volume 9.9 fL (7.4-10.4); Monocytes # 0.4 10^3/uL (0.2-0.9); Neutrophils # 4.2 10^3/uL (1.8-7.7); Neutrophils % 61.7 %; Nucleated Red Blood Cells % 0 %; Platelet Count 254 10^3/cmm (130-400); Red Blood Count 3.02 10^6/uL (4.1-5.3); Red Cell Distribution Width 15.4 % (12.1-15.1); White Blood Count 6.7 10^3/uL (4.0-10.0)
[2019-03-30 05:03] LABS: Anion Gap 16.7 (5-19); Blood Urea Nitrogen 57 mg/dL (8-23); Calcium 9.6 mg/dL (8.5-10.5); Carbon Dioxide 23 mmol/L (22-29); Chloride 110 mmol/L (98-107); Glucose 128 mg/dL (74-106); Osmolality Calculated 302 mOsm/kg (285-295); Potassium 3.7 mmol/L (3.5-5.1); Sodium 146 mmol/L (136-145)
[2019-03-30] MEDS: cefdinir 300 MG CAPSULE PO ×2 (05:39→16:54)
[2019-03-30 06:11] LABS: Glucose Point of Care 124 mg/dL (70-110)
[2019-03-30 07:12] VITALS: BP 133/70; PULSE 87; RESP 22; TEMP 37.1; O2SAT 94
[2019-03-30] MEDS: metoprolol tartrate 25 mg Tablet PO ×2 (08:44→16:54)
[2019-03-30] MEDS: amlodipine 5 mg Tablet PO (08:44)
[2019-03-30] MEDS: atorvastatin 40 mg Tablet 80 MG PO (08:44)
[2019-03-30] MEDS: tamsulosin 0.4 mg Capsule PO ×2 (08:44→16:54)
[2019-03-30] MEDS: docusate sodium 100 mg Capsule PO ×2 (08:44→16:54)
[2019-03-30 11:11] LABS: Glucose Point of Care 137 mg/dL (70-110)
[2019-03-30 11:26] VITALS: BP 134/78; PULSE 75; RESP 16; TEMP 36.9; O2SAT 95
[2019-03-30 15:00] VITALS: BP 151/77; PULSE 80; RESP 18; TEMP 36.4; O2SAT 96
[2019-03-30 16:04] LABS: Glucose Point of Care 163 mg/dL (70-110)
--- NOTE | 2019-03-30 16:35 | PM.PN ---
Subjective Subjective: Interval history: This morning patient states that he continues to feel weak, did get up to use the bathroom, but has generalized weakness, no shortness of breath, no chest pain, no palpitations, no lightheadedness, no dizziness, no black stools Vitals/I&O/Wt Last Vital Signs Temp 97.6 F 03/30/19 15:00 Pulse 80 03/30/19 15:00 Resp 18 03/30/19 15:00 BP 151/77 03/30/19 15:00 Pulse Ox 96 03/30/19 15:00 03/30/19 03/30/19 03/30/19 06:59 14:59 22:59 Intake Total 850 / 1800 480 / 480 Output Total 2650 / 6100 2550 / 2550 Balance -1800 / -4300 -0 / -0 Weight last 48 hrs Weight 128.094 kg Weight 129.954 kg Weight 129.954 kg Physical Exam Const: COMMON NORMALS: no apparent distress and oriented x3 HENMT: COMMON NORMALS: normocephalic HEAD & SCALP: normocephalic Neck/C-Spine: COMMON NORMALS: no JVD Resp: COMMON NORMALS: normal respiratory effort, no retractions, no use of accessory muscles and clear to auscultation bilaterally AUSCULTATION: clear to auscultation bilaterally Cardio: COMMON NORMALS: no JVD, regular rate, regular rhythm, S1 normal heart sound and S2 normal heart sound RATE: regular rate RHYTHM: regular rhythm HEART SOUNDS: S1 normal and S2 normal GI: COMMON NORMALS: normal to inspection, nondistended, normoactive bowel sounds, soft to palpation, non-tender, no hepatosplenomegaly, no masses and no bruits PALPATION: Yes soft and Yes no hepatosplenomegaly Extremity: COMMON NORMALS: normal capillary refill, no clubbing, cyanosis or edema, no calf tenderness and no pedal edema Neuro: COMMON NORMALS: oriented x3 Psych: COMMON NORMALS: mental status grossly normal Urinary Catheter Management^: 20 Italian kaibab tip catheter placed over wire.: Cath Placed During This Visit: no Data : 03/30/19 03:48 03/30/19 03:48 Micro: Microbiology 03/28/19 11:38 Urine Culture - Final Urine,Clean Catch A&P Assessment and plan (1) DANIEL (acute kidney injury): Acute on chronic kidney injury Secondary to obstructive uropathy. Torres catheter in place Creatinine improved to 4.2, potassium 3.7 Urine [id number] nephrotoxic medications held Continue on previously prescribed antibiotics Status: Acute Code(s): N17.9 - Acute kidney failure, unspecified (2) Hydronephrosis, bilateral: Severe bilateral hydronephrosis on CT scan of the abdomen and pelvis Patient with chronic neurogenic bladder, chronic Torres catheter placement with Torres catheter being malpositioned into a false passage in the posterior urethra on admission. Dr. Baez on consult Status: Acute Code(s): N13.30 - Unspecified hydronephrosis (3) Acute bilateral obstructive uropathy: Plan as above Status: Acute Code(s): N13.9 - Obstructive and reflux uropathy, unspecified Additional A&P Information Anemia: Hemoglobin 8.4, status post 1 unit PRBC Likely slow GI bleed secondary to aspirin and Plavix, which have been held Iron studies pending, stool studies pending Discussed risks and benefits, patient voiced understanding, agreed to hold Will require an outpatient EGD and colonoscopy Constipation: Now resolved Elevated troponin: Likely secondary to-acute kidney injury -No chest pain, telemetry remains unremarkable -On previous admission patient was found to have a NSTEMI, medically managed, -Continue metoprolol, atorvastatin, holding aspirin and Plavix Coronary artery disease: Prior CABG. Continue on statin and metoprolol, holding aspirin and Plavix due to concern as above Diabetes mellitus type 2, insulin-dependent: Continue on Lantus 35 units at bedtime, sliding scale insulin as needed Diastolic congestive heart failure: Appears to be euvolemic at this time Hyperlipidemia: Continue home statin Hypertension: Continue home amlodipine 5 mg daily DVT prophylaxis: SCDs, no pharmacologic prophylaxis due to acute anemia Diet: Carbohydrate consistent, cardiac CODE STATUS: Full code Attestations Medical Necessity Statement*: Patient requires continued hospitalization due to acute renal failure secondary to obstructive uropathy, anemia Coding Level of Care Code Acute [employer] Operator for [facility] Fwd Diagnoses DANIEL (acute kidney injury) N17.9 Hydronephrosis, bilateral N13.30 Acute bilateral obstructive uropathy N13.9
[2019-03-30 17:50] LABS: Ferritin 360 ng/mL (30-400); Folate Level 8.9 ng/mL (4.5-32.2); Iron 80 ug/dL (59-158); Percent Saturation 39.8 % (20-50); Total Iron Binding Capacity 201 mcg/dl; Unsaturated Iron Binding 121 ug/dL (112-347); Vitamin B12 393 pg/mL (232-1245)
[2019-03-30 18:09] LABS: Basophils % 0.5 %; Eosinophils # 0.3 10^3/uL (0.0-0.8); Eosinophils % 5.4 %; Hematocrit 31.9 % (42.0-52.0); Hemoglobin 10.1 g/dL (11.7-16.6); Lymphocytes # 1.8 10^3/uL (0.8-4.8); Lymphocytes % 27.6 %; Mean Corpuscular HGB Conc 31.7 g/dL (30.0-36.0); Mean Corpuscular Hemoglobin 29.3 pg (28.0-34.0); Mean Corpuscular Volume 92.5 fL (80-94); Mean Platelet Volume 9.9 fL (7.4-10.4); Monocytes # 0.3 10^3/uL (0.2-0.9); Monocytes % 4.7 %; Neutrophils # 3.9 10^3/uL (1.8-7.7); Neutrophils % 61.3 %; Nucleated Red Blood Cells % 0 %; Platelet Count 264 10^3/cmm (130-400); Red Blood Count 3.45 10^6/uL (4.1-5.3); Red Cell Distribution Width 15.4 % (12.1-15.1); White Blood Count 6.4 10^3/uL (4.0-10.0)
[2019-03-30 20:00] VITALS: BP 133/73; PULSE 78; RESP 18; TEMP 37; O2SAT 98
[2019-03-30] MEDS: insulin glargine 100 units/1 mL 35 UNIT SUBCUT (20:26)
[2019-03-30 20:36] LABS: Glucose Point of Care 191 mg/dL (70-110)
[2019-03-31] VITALS: BP 149/75; PULSE 84; RESP 19; TEMP 37.2; O2SAT 97
[2019-03-31 04:00] VITALS: BP 152/76; PULSE 86; RESP 18; TEMP 37.1; O2SAT 96
[2019-03-31 05:00] LABS: Basophils % 0.3 %; Eosinophils # 0.3 10^3/uL (0.0-0.8); Eosinophils % 5.3 %; Hematocrit 27.6 % (42.0-52.0); Hemoglobin 8.7 g/dL (11.7-16.6); Lymphocytes # 1.5 10^3/uL (0.8-4.8); Lymphocytes % 25.2 %; Mean Corpuscular HGB Conc 31.5 g/dL (30.0-36.0); Mean Corpuscular Hemoglobin 27.9 pg (28.0-34.0); Mean Corpuscular Volume 88.5 fL (80-94); Mean Platelet Volume 9.8 fL (7.4-10.4); Monocytes # 0.3 10^3/uL (0.2-0.9); Monocytes % 5.6 %; Neutrophils # 3.8 10^3/uL (1.8-7.7); Neutrophils % 63.3 %; Nucleated Red Blood Cells % 0 %; Platelet Count 265 10^3/cmm (130-400); Red Blood Count 3.12 10^6/uL (4.1-5.3); Red Cell Distribution Width 15.1 % (12.1-15.1)
[2019-03-31 05:33] LABS: Alanine Aminotransferase 32 U/L (0-41); Albumin Level 2.7 g/dL (3.5-5.2); Alkaline Phosphatase 82 IU/L (40-130); Anion Gap 15.5 (5-19); Aspartate Amino Transferase 25 U/L (0-40); Blood Urea Nitrogen 32 mg/dL (8-23); Calcium 9.9 mg/dL (8.5-10.5); Carbon Dioxide 24 mmol/L (22-29); Chloride 108 mmol/L (98-107); Globulin 4.9 g/dL (1.3-4.6); Glucose 145 mg/dL (74-106); Magnesium 1.6 mg/dL (1.7-2.3); Potassium 3.5 mmol/L (3.5-5.1); Sodium 144 mmol/L (136-145); Total Bilirubin 0.5 mg/dL (0.15-1.2); Total Protein 7.6 g/dL (6.6-8.7)
[2019-03-31] MEDS: cefdinir 300 MG CAPSULE PO (05:47)
[2019-03-31 06:50] LABS: Glucose Point of Care 151 mg/dL (70-110)
[2019-03-31 07:27] VITALS: BP 150/71; PULSE 84; RESP 22; TEMP 37.1; O2SAT 96
[2019-03-31] MEDS: magnesium oxide 400 mg tablet 800 MG PO (09:21)
[2019-03-31] MEDS: amlodipine 5 mg Tablet PO (09:21)
[2019-03-31] MEDS: tamsulosin 0.4 mg Capsule PO (09:21)
[2019-03-31] MEDS: metoprolol tartrate 25 mg Tablet PO (09:22)
[2019-03-31] MEDS: docusate sodium 100 mg Capsule PO (09:22)
[2019-03-31] MEDS: atorvastatin 40 mg Tablet 80 MG PO (09:22)
--- NOTE | 2019-03-31 10:29 | PC.SOCIAL ---
Pg 2 IMM Explained to pt Pg 2 IMM. Pt verbally understands & signed. Provided a copy to pt & left on pt's bedside table. Signed, dated, & timed then placed in chart.
[2019-03-31 10:58] LABS: Glucose Point of Care 125 mg/dL (70-110)
[2019-03-31 11:03] VITALS: BP 150/76; PULSE 86; RESP 22; TEMP 37.1; O2SAT 95
[2019-03-31 12:44] VITALS: BP 150/76; PULSE 86; RESP 22; TEMP 37.1; O2SAT 95
--- NOTE | 2019-03-31 19:23 | PM.DCS ---
Discharge Providers Date of Admission: 03/28/19 10:25 Date of Discharge: Date of Discharge: March 31, 2019 Attending Provider at Admission: Damari Winters DO Attending Provider at Discharge: Anthony Nunez MD Primary Care Provider: Enzo Grover DO Diagnoses at Discharge Discharge Diagnosis (1) DANIEL (acute kidney injury): Status: Acute (2) Hydronephrosis, bilateral: Status: Acute (3) Acute bilateral obstructive uropathy: Status: Acute Reason for Visit Reason for Visit: Reason For Visit: Constipation Hospital Course Discharge Summary: This is a 73-year-old male with a past medical history of urinary retention secondary to neurogenic bladder, diastolic CHF, chronic kidney disease, type 2 diabetes mellitus who presented did from the halfway facility due to concerns for abdominal pain. Patient reported that he has had a catheter since his previous discharge, and had to replaced on 03/21/2019. Patient was admitted for acute kidney injury secondary to obstructive uropathy, due to malpositioned Flores catheter, Dr. Baez from urology was consulted, patient was found to have a posterior prostatic fossa false passage with the catheter forcibly withdrawn into the prostatic fossa. Dr. Baez repositioned the catheter over a guidewire, patient tolerated the procedure well. Patient's kidney function slowly improved, urine output remained stable, on discharge patient's creatinine was 2.8. Patient was discharged to the detention. Patient was advised to follow-up with Dr. Baez 1 week. intermediate was advised to follow creatinine on a daily basis and to monitor urine output. intermediate was strongly advised to manage Flores catheter with care, as this is the third time it has become malpositioned. Patient was also found to have anemia during admission, likely secondary to GI bleed secondary to aspirin and Plavix (likely secondary to Plavix which was recently started due to N STEMI), received 1 units PRBC. After discussion of the risks and benefits of aspirin and Plavix, risks of holding including but not limited to MD, risk of continuing but not limited to worsening GI bleed, patient voiced understanding, all questions answered, patient agreed to continue to hold Plavix, continue low-dose aspirin 81 mg. Patient was discharged on Protonix and Carafate. Patient will require outpatient follow-up with surgery for consideration of EGD and colonoscopy. intermediate was instructed to monitor for bloody and black stools. Monitor hemoglobin on a daily basis. Hemoglobin at discharge was 8.7 Physical Exam Const: COMMON NORMALS: no apparent distress and oriented x3 GENERAL APPEARANCE: cooperative and comfortable Neck/C-Spine: COMMON NORMALS: full ROM, no lymphadenopathy, no JVD and thyroid normal THYROID: thyroid normal Lymph: LYMPHATIC: no lymphadenopathy noted Resp: COMMON NORMALS: normal respiratory effort, no retractions, no use of accessory muscles and clear to auscultation bilaterally AUSCULTATION: clear to auscultation bilaterally Cardio: COMMON NORMALS: no JVD, regular rate, regular rhythm, S1 normal heart sound, S2 normal heart sound, no gallops, no clicks and no murmurs RATE: regular rate RHYTHM: regular rhythm HEART SOUNDS: S1 normal and S2 normal GI: COMMON NORMALS: normal to inspection, nondistended, normoactive bowel sounds, soft to palpation, non-tender and no hepatosplenomegaly PALPATION: Yes soft and Yes no hepatosplenomegaly Neuro: COMMON NORMALS: oriented x3 Psych: COMMON NORMALS: mental status grossly normal, thought process normal and cooperative THOUGHT PROCESS: normal thought process Urinary Catheter Management^: 20 Romansh chalkyitsik tip catheter placed over wire.: Cath Placed During This Visit: no Discharge Data Data Completed and Pending: Completed Studies During Hospitalization Category Date Time Status CT abdomen pelvis wo con 36259 Urge nt Cat Scan 03/28/19 03:56 Completed Labs from last 24 hours 03/31/19 03/31/19 03/31/19 10:48 06:47 04:35 WBC RBC Hgb Hct MCV MCH MCHC RDW Plt Count MPV Neut % (Auto) Lymph % (Auto) Mcminn % (Auto) Eos % (Auto) Baso % (Auto) Neut # (Auto) Lymph # (Auto) Mcminn # (Auto) Eos # (Auto) Baso # (Auto) Nucleated RBC % (a uto) Nucleated RBCs # Sodium 144 Potassium 3.5 Chloride 108 H Carbon Dioxide 24 Anion Gap 15.5 BUN 32 H Creatinine 2.8 H Glucose 145 H POC Glucose 125 151 Calcium 9.9 Phosphorus 3.0 Magnesium 1.6 L Total Bilirubin 0.5 AST 25 ALT 32 Alkaline Phosphata se 82 Total Protein 7.6 Albumin 2.7 L Globulin 4.9 H 03/31/19 03/30/19 04:35 20:23 WBC 6.0 RBC 3.12 L Hgb 8.7 L Hct 27.6 L MCV 88.5 MCH 27.9 L MCHC 31.5 RDW 15.1 Plt Count 265 MPV 9.8 Neut % (Auto) 63.3 Lymph % (Auto) 25.2 Mcminn % (Auto) 5.6 Eos % (Auto) 5.3 Baso % (Auto) 0.3 Neut # (Auto) 3.8 Lymph # (Auto) 1.5 Mcminn # (Auto) 0.3 Eos # (Auto) 0.3 Baso # (Auto) 0.0 Nucleated RBC % (a uto) 0 Nucleated RBCs # 0.0 Sodium Potassium Chloride Carbon Dioxide Anion Gap BUN Creatinine Glucose POC Glucose 191 Calcium Phosphorus Magnesium Total Bilirubin AST ALT Alkaline Phosphata se Total Protein Albumin Globulin Vitals: Last Vital Signs Temp 98.7 F 03/31/19 12:44 Pulse 86 03/31/19 12:44 Resp 22 H 03/31/19 12:44 BP 150/76 03/31/19 12:44 Pulse Ox 95 03/31/19 12:44 Discharge Plan Discharge Patient Disposition: Home, Self-Care Condition: Stable Prescriptions: New Protonix 40 mg tablet,delayed release (DR/EC) 40 mg PO BID 30 Days Qty: 60 RF: 0 Carafate 1 gram tablet 1 gm PO BID 30 Days Qty: 60 RF: 0 Continued Lantus Solostar U-100 Insulin 100 unit/mL (3 mL) insulin pen 35 unit SUBCUT .hs RF: 0 amlodipine 5 mg tablet 5 mg PO DAILY RF: 0 Ducodyl (bisacodyl) 5 mg Tablet,Delayed Release (Dr/Ec) 5 mg PO DAILY PRN (Reason: Constipation) RF: 0 methenamine hippurate [Hiprex] 1 gram tablet 1 g PO BID RF: 0 metoprolol tartrate 25 mg tablet 25 mg PO BID RF: 0 tamsulosin [Flomax] 0.4 mg capsule 0.4 mg PO BID RF: 0 atorvastatin [Lipitor] 80 mg tablet 80 mg PO DAILY RF: 0 ascorbic acid (vitamin C) [Vitamin C] 1,000 mg Tablet 500 mg PO DAILY RF: 0 aspirin tablet 81 mg PO DAILY RF: 0 insulin lispro [Humalog KwikPen Insulin] 100 unit/mL insulin pen See Rx Instructions .ROUTE .COMPLEX Qty: 3 RF: 0 Held clopidogrel 75 mg Tablet 75 mg PO DAILY Qty: 30 RF: 0 Hold Instructions: Resume on 04/26/19. HOLD UNTIL SEEN BY GENERAL SURGERY Discontinued cefdinir 300 mg capsule 300 mg PO Q12H 10 Days Qty: 20 RF: 0 Discharge Orders: Discharge Order (Routine); Ordered 03/31/19 Ordered By: Anthony Nunez Other Ambulatory Orders: Complete Blood Count w/Auto (DAILY) Timeframe: 20190402 Location: Determined by Patient Ordered By: Anthony Maddoxmood Complete Blood Count w/Auto (DAILY) Timeframe: 20190403 Location: Determined by Patient Ordered By: Anthony Maddoxmood Complete Blood Count w/Auto (DAILY) Timeframe: 20190404 Location: Determined by Patient Ordered By: Anthony Maddoxmood Complete Blood Count w/Auto (DAILY) Timeframe: 20190405 Location: Determined by Patient Ordered By: Anthony Nunez Renal Function Panel (DAILY) Timeframe: 20190401 Facility: [facility] - Location: Lab - Main Lab Ordered By: Anthony Nunez Renal Function Panel (DAILY) Timeframe: 20190402 Facility: [facility] - Location: Lab - Main Lab Ordered By: Anthony Maddoxmood Renal Function Panel (DAILY) Timeframe: 20190403 Facility: [facility] - Location: Lab - Main Lab Ordered By: Anthony Nunez Renal Function Panel (DAILY) Timeframe: 20190404 Facility: [facility] - Location: Lab - Main Lab Ordered By: Anthony Maddoxmood Renal Function Panel (DAILY) Timeframe: 20190405 Facility: [facility] - Location: Lab - Main Lab Ordered By: Anthony Nunez Referrals: [facility] [Outside] Rolo Turner MD [Physician] - 1 month Evan Baez MD [Physician] - 1 week Ranjan Mojica MD [Physician] - 2 weeks Discharge Diet: Diabetic Discharge Activity: Resume usual activity Patient Instructions: Sucralfate (By mouth), Pantoprazole (By mouth), Flores Catheter Care, Gastrointestinal Bleeding (GEN), Flores Catheter Placement and Care (DC) Activity Restrictions/Additional Instructions: -TO HALF-WAY: HANDLE FLORES WITH ABSOLUTE CARE IT HAS DISLODGED 3 TIMES, REQUIRING REPLACEMENT -For your GI bleed, hold Plavix until seen by general surgery, possible EGD or colonoscopy -Discussed risks and benefits, agreed to proceed with aspirin 81 mg once daily -Monitor CBC daily, if bloody or black stools come back to the emergency room -Protonix and Carafate as prescribed -For acute kidney injury, monitor CMP daily monitoring creatinine -Monitor urine output through Flores Discharge Date/Time: 03/31/19 14:30 Discharge Attestations Time Spent in Discharge Care*: less than 30 min Quality Metrics Clinical Quality Measures During this hospital stay, did patient experience: None Coding Level of Care Code Acute First Coat Operator for [facility] Fwd Diagnoses DANIEL (acute kidney injury) N17.9 Hydronephrosis, bilateral N13.30 Acute bilateral obstructive uropathy N13.9
== END 2019-03-31 14:30 | disposition home or self-care (01) | DRG 699 ==
LOC: ER 06:40 → MEDSURG 10:25
PROVIDERS: Emergency Medicine; Admitting Provider Family Medicine; Emergency Provider Family Medicine; Family Provider Internal Medicine; PCP Internal Medicine; Visit Provider Family Medicine
DX: T83.028A Displacement of other urinary catheter, initial encounter (principal); N17.9 Acute kidney failure, unspecified; K92.2 Gastrointestinal hemorrhage, unspecified; I13.0 Hypertensive heart and chronic kidney disease with heart failure and stage 1 through stage 4 chronic kidney disease, or unspecified chronic kidney disease; I50.30 Unspecified diastolic (congestive) heart failure; N13.30 Unspecified hydronephrosis; K59.00 Constipation, unspecified; N31.9 Neuromuscular dysfunction of bladder, unspecified; R33.9 Retention of urine, unspecified; D64.9 Anemia, unspecified; Z79.02 Long term (current) use of antithrombotics/antiplatelets; Z79.82 Long term (current) use of aspirin; I25.2 Old myocardial infarction; E78.5 Hyperlipidemia, unspecified; E11.22 Type 2 diabetes mellitus with diabetic chronic kidney disease; I25.10 Atherosclerotic heart disease of native coronary artery without angina pectoris; Z79.4 Long term (current) use of insulin; Y84.6 Urinary catheterization as the cause of abnormal reaction of the patient, or of later complication, without mention of misadventure at the time of the procedure; Z79.899 Other long term (current) drug therapy; N36.5 Urethral false passage; N18.2 Chronic kidney disease, stage 2 (mild); T45.525A Adverse effect of antithrombotic drugs, initial encounter; T39.015A Adverse effect of aspirin, initial encounter
CPT/HCPCS: 12345; 36415; 36416; 36430; 74176; 80048; 80053; 81001; 82274; 82607; 82728; 82746; 82962; 83540; 83550; 83690; 83735; 84100; 84132; 84484; 85025; 85045; 86850; 86900; 87086; 93005; 96372; 96374; 96375; 99283; J0610; J1815; J2270; J2405; J7030; P9016; Q9967

== ENCOUNTER → 2019-04-30 16:03 | Outpatient (BNVA) | payer MEDICARE, SELFPAY | PROVIDERS: Family Provider Internal Medicine; PCP Internal Medicine; Referring Provider Internal Medicine; Visit Provider Internal Medicine Cardiovascular Disease | DX: I11.0 Hypertensive heart disease with heart failure (principal); I50.33 Acute on chronic diastolic (congestive) heart failure; N17.9 Acute kidney failure, unspecified; Z79.01 Long term (current) use of anticoagulants; R06.02 Shortness of breath; I25.810 Atherosclerosis of coronary artery bypass graft(s) without angina pectoris; E78.5 Hyperlipidemia, unspecified; D63.8 Anemia in other chronic diseases classified elsewhere | CPT/HCPCS: 80048; 83880; 85025 ==

== ENCOUNTER 2019-05-16 11:13 | Day surgery (SDC) | payer MEDICARE, SELFPAY ==
--- NOTE | 2019-05-15 12:04 | ECG_ITS ---
Measurements Intervals Bat[place]lor Rate: 77 P: 19 WI: 180 QRS: -17 QRSD: 105 T: 21 QT: 365 QTc: 413 SINUS RHYTHM WARNING: DATA QUALITY MAY AFFECT INTERPRETATION Compared to ECG 03/28/2019 05:16:09 Myocardial infarct finding no longer present Electronically Signed On 05-16-2019 12:47:12 CDT by Wilber Razo [email or web address]
--- NOTE | 2019-05-15 12:18 | ANES.PREANE2 ---
Pre-Anesthetic Assessment Pre-Anesthetic Assessment: Height/Weight: Height 1.91 m Weight 120.202 kg Preop Diagnosis: urinary retention/blockage Proposed Procedure: Operation Date: 05/16/19 13:00 Proposed Procedures p Suprapubic Catheter Placement(Not Applicable) - Evan Baez MD s Cystoscopy 63827 R33.9 N36.5(Not Applicable) - Evan Baez MD Exam: Pre-Anes Outpt Exam: alert, oriented x 3, clear to auscultation bilaterally and regular rate & rhythm Airway: Submandibular: WNL Cervical ROM: Other MP: 2 CV/HEM: CV/HEM: HTN Comments: rx'd 18y CABG x 4 '00 stress test 10 ago negative : Comments: urinary retention Metabolic: Metabolic: DM Comments: rx'd 1 month, does not follow Musc/skel: Musc/skel: Lower Back Pain Comments: nonradiating PFSH Anesthesia PFSH: Social History Smoking and tobacco status: never smoked Alcohol intake: never Marital status: Current occupational status: retired History of recent travel: No Current gender identity: Male Data Anesthesia Cardiac Studies: No Data to Display
[2019-05-16] VITALS (10 sets, daily range): BP systolic 122–172; BP diastolic 59–85; PULSE 70–91; RESP 16–24; TEMP 36.1–36.8; O2SAT 91–98; BMI 33.1
[2019-05-16] MEDS: sodium chloride 0.9% 1,000 ML 30 ML IV (11:45)
[2019-05-16] MEDS: midazolam 1 mg/mL INJ 2 mL 2 MG IVP (12:44)
[2019-05-16 12:57] LABS: Glucose Point of Care 118 mg/dL (70-110)
--- NOTE | 2019-05-16 13:34 | W.PM.OPSUD ---
Surgery/Procedure H&P Update DATE OF PROCEDURE: May 16, 2019 DATE H&P PERFORMED: 05/07/19 H&P UPDATE INFORMATION: I have reviewed H&P completed within last 30 days, I have examined patient prior to procedure and No changes to prior documentation PREOP DIAGNOSIS: Chronic urinary retention desire suprapubic tube PLANNED PROCEDURE: Operation Date: 05/16/19 13:00 Proposed Procedures p Suprapubic Catheter Placement(Not Applicable) - Evan Baez MD s Cystoscopy 23689 R33.9 N36.5(Not Applicable) - Evan Baez MD
--- NOTE | 2019-05-16 13:37 | P.OP_ITS ---
Operative Report Date of procedure: May 16, 2019 Pre-op Diagnosis: Chronic urinary retention desire suprapubic tube Post-op diagnosis: same Procedure Done: 1. Cystoscopy 2. Suprapubic tube placement percutaneously Implants: Suprapubic tube (Torres catheter) Pathology: none sent Surgeon: Nestor Anesthesia: General Estimated blood loss: Minimal Urine output: Not measured Complications: None Findings: 18 Zimbabwean catheter placed through suprapubic sheath without difficulty. Good positioning confirmed. Balloon inflation confirmed. Secured with 2 nonabsorbable sutures Condition: stable Disposition: PACU Brief History: Mr. 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 Initially utilized effectively SCIC for bladder management but at some point developed catheter trauma to the posterior prostatic fossa with a false passage that was quite difficult to manipulate except via cystoscopic placed guidewire and catheter placement over guidewire. That has since healed with indwelling Torres catheter. He was offered the opportunity to go back to SCI but ultimately wants to maintain a Torres catheter and with reviewing options between urethral and suprapubic tube he elected suprapubic tube. His overall health has declined. He has had no abdominal surgeries below the umbilicus. Procedure: After routine preoperative evaluation examination and obtaining of informed consent he was taken to the operating suite on 05/16/2019 where general anesthesia was administered without difficulty after appropriate timeout was performed, SCDs confirmed to be functioning, preoperative antibiotics administered, beta-cherri protocol confirmed. Prepped and draped in usual sterile fashion in dorsolithotomy position paying careful attention to avoiding pressure points. The 21 Zimbabwean cystoscope with 30 degree lens was introduced into the urethra meatus and advanced into the bladder under videoscopy. The bladder was drained carefully inspected with 30 and 70 degree lenses. No gross abnormality was identified. The bladder was distended such that it was palpable and a site approximately 3 fingerbreadths above the symphysis pubis in the midline was selected and a spinal needle was advanced at the site under cystoscopic guidance into the bladder with appropriate position confirmed. A puncture incision was made at the site large enough to easily accommodate a 20 Zimbabwean suprapubic sheath with a trocar. The puncture incision was taken through the subcutaneous fat and puncturing as well the rectus abdominis sheath. Under cystoscopic guidance the suprapubic sheath with trocar was then advanced into the bladder through this puncture wound easily into the bladder. After perforation of the bladder wall anteriorly the sheath was advanced into the bladder and the trocar was withdrawn with good return of fluid. A 20 Zimbabwean catheter that was attempted but was too tight to easily passed through the sheath and therefore was exchanged with an 18 Zimbabwean Torres catheter which was then easily placed through the sheath into the bladder the balloon inflated and confirmed to be functioning well and the peel-away sheath was removed. The balloon was confirmed to be seated against the anterior bladder wall and it was secured with 2 nonabsorbable sutures for further safety. Was placed to dependent drainage and the procedure completed. Tolerated procedure well without complications and was awakened in the operating room and returned to the recovery in stable condition PLANS: 1. Discharge from outpatient surgery today and follow-up in approximately 1 month for suprapubic tube change #1 Postoperative instructions explained to the family
[2019-05-16] MEDS: neomycin-poly-bacitracin oint 28 gm 1 APPLIC TOPICAL (14:10)
--- NOTE | 2019-05-16 14:36 | SUR.PHASEI ---
PT AWAKE ALERT ON RA NOW, PT CATHETER DRAINING DK RED URINE, SMALL CLOTS NOTED DR GALAVIZ AT BEDSIDE, IV W/O PER DR GALAVIZ TO INCREASE URINE PRODUCTIONL PT DENIES PAIN AND NAUSEA WARM BLANKETS X 2 TO PT.
--- NOTE | 2019-05-16 15:05 | SUR.PHASEI ---
1454 PT ALERT TALKATIVE ON RA CATHETER WITH MINIMAL RED URINE,FLUSHED WITH 120ML STERILE SALINE WITH STERILE TECHNIQUE, CLEAR TO LT YELLOW URINE NOTED NO BLOOD OR CLOTS, PT TO OPS IN ROOM PT TALKATIVE WITH STAFF YULISA AND .
== END 2019-05-16 15:58 | disposition home or self-care (01) ==
PROVIDERS: Family Provider Internal Medicine; PCP Internal Medicine; Visit Provider Urology
PROC: (CPT 51102; principal; 2019-05-16 13:00)
PROC: 0TJB8ZZ Inspection of Bladder, Via Natural or Artificial Opening Endoscopic (ICD-10-PCS; CPT 52000; 2019-05-16 13:00)
DX: R33.9 Retention of urine, unspecified (principal); I10 Essential (primary) hypertension; Z95.1 Presence of aortocoronary bypass graft; E11.9 Type 2 diabetes mellitus without complications; Z79.82 Long term (current) use of aspirin; I11.0 Hypertensive heart disease with heart failure; I50.33 Acute on chronic diastolic (congestive) heart failure; I25.10 Atherosclerotic heart disease of native coronary artery without angina pectoris; E78.5 Hyperlipidemia, unspecified
CPT/HCPCS: 51102; 12345; 36416; 82962; 93005; 93010; 96374; J0330; J0690; J2001; J2250; J2405; J2704; J3010; J3490; J7030; J7040

== ENCOUNTER → 2021-07-14 13:45 | Outpatient (BNVA) | payer MEDICARE, SELFPAY | PROVIDERS: Family Provider Internal Medicine; PCP Internal Medicine; Visit Provider Nurse Practitioner Family | DX: Z93.59 Other cystostomy status (principal); R33.9 Retention of urine, unspecified | CPT/HCPCS: 51705 ==

== ENCOUNTER → 2021-08-11 14:19 | Outpatient (BNVA) | payer MEDICARE, SELFPAY | PROVIDERS: Family Provider Internal Medicine; PCP Internal Medicine; Visit Provider Nurse Practitioner Family | DX: R33.9 Retention of urine, unspecified (principal); Z93.59 Other cystostomy status | CPT/HCPCS: 51705 ==

== ENCOUNTER → 2021-09-08 15:05 | Outpatient (BNVA) | payer MEDICARE, SELFPAY | PROVIDERS: Family Provider Internal Medicine; PCP Internal Medicine; Visit Provider Nurse Practitioner Family | DX: R33.9 Retention of urine, unspecified (principal); Z93.59 Other cystostomy status | CPT/HCPCS: 51705 ==

== ENCOUNTER → 2021-10-06 12:15 | Outpatient (BNVA) | payer MEDICARE, SELFPAY | PROVIDERS: Family Provider Internal Medicine; PCP Internal Medicine; Visit Provider Nurse Practitioner Family | DX: R33.9 Retention of urine, unspecified (principal); Z93.59 Other cystostomy status | CPT/HCPCS: 51705 ==

== ENCOUNTER → 2021-11-03 13:53 | Outpatient (BNVA) | payer MEDICARE, SELFPAY | PROVIDERS: Family Provider Internal Medicine; PCP Internal Medicine; Visit Provider Nurse Practitioner Family | DX: R33.9 Retention of urine, unspecified (principal); Z93.59 Other cystostomy status; L92.9 Granulomatous disorder of the skin and subcutaneous tissue, unspecified | CPT/HCPCS: 51705 ==

== ENCOUNTER → 2021-12-06 10:10 | Outpatient (BNVA) | payer MEDICARE, SELFPAY | PROVIDERS: Family Provider Internal Medicine; PCP Internal Medicine; Visit Provider Nurse Practitioner Family | DX: Z46.6 Encounter for fitting and adjustment of urinary device (principal); R33.9 Retention of urine, unspecified; Z93.59 Other cystostomy status | CPT/HCPCS: 51705 ==

== ENCOUNTER → 2022-01-05 13:02 | Outpatient (BNVA) | payer MEDICARE, SELFPAY | PROVIDERS: Family Provider Internal Medicine; PCP Electrodiagnostic Medicine; Visit Provider Urology | DX: R33.9 Retention of urine, unspecified (principal); Z93.59 Other cystostomy status | CPT/HCPCS: 51705 ==

== ENCOUNTER → 2022-01-31 15:37 | Outpatient (BNVA) | payer MEDICARE, SELFPAY | PROVIDERS: Family Provider Internal Medicine; PCP Electrodiagnostic Medicine; Visit Provider Urology | DX: R33.9 Retention of urine, unspecified (principal) | CPT/HCPCS: 51705 ==

== ENCOUNTER → 2022-03-03 10:44 | Outpatient (BNVA) | payer MEDICARE, SELFPAY | PROVIDERS: Family Provider Internal Medicine; PCP Electrodiagnostic Medicine; Visit Provider Urology | DX: N39.9 Disorder of urinary system, unspecified (principal); R33.9 Retention of urine, unspecified | CPT/HCPCS: 51705 ==

== ENCOUNTER → 2022-04-06 15:40 | Outpatient (BNVA) | payer MEDICARE, SELFPAY | PROVIDERS: Family Provider Internal Medicine; PCP Electrodiagnostic Medicine; Visit Provider Urology | DX: R33.9 Retention of urine, unspecified (principal) | CPT/HCPCS: 51705 ==

== ENCOUNTER → 2022-05-05 14:20 | Outpatient (BNVA) | payer MEDICARE, SELFPAY | PROVIDERS: Family Provider Internal Medicine; PCP Electrodiagnostic Medicine; Visit Provider Urology | DX: R33.9 Retention of urine, unspecified (principal); Z93.59 Other cystostomy status | CPT/HCPCS: 51705 ==

== ENCOUNTER → 2022-06-08 14:31 | Outpatient (BNVA) | payer MEDICARE, SELFPAY | PROVIDERS: Family Provider Internal Medicine; PCP Electrodiagnostic Medicine; Visit Provider Urology | DX: Z93.59 Other cystostomy status (principal); N39.9 Disorder of urinary system, unspecified | CPT/HCPCS: 51705 ==

== ENCOUNTER → 2022-07-06 13:44 | Outpatient (BNVA) | payer MEDICARE, SELFPAY | PROVIDERS: Family Provider Internal Medicine; PCP Electrodiagnostic Medicine; Visit Provider Urology | DX: R33.9 Retention of urine, unspecified (principal) | CPT/HCPCS: 51705 ==

== ENCOUNTER 2022-08-02 09:54 | Emergency (ER) | payer MEDICARE, SELFPAY ==
[2022-08-02 10:01] VITALS: BP 159/76; PULSE 65; RESP 14; TEMP 36.7; O2SAT 98; BMI 29.9
--- NOTE | 2022-08-02 10:23 | ED_ITS ---
HPI - Male Genitourinary General: Chief complaint: Urogenital-Male Stated complaint: bladder/abd pain Time Seen by Provider: 08/02/22 09:58 Source: patient Mode of arrival: ambulatory History of Present Illness: 68-year-old male who is here. 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 Last couple of days he has noticed diminishing urinary output has had increased discomfort its been about 3 weeks since his last suprapubic Torres was changed has had only a few ounces of urine in the Torres catheter this morning per his report which is very unusual for him. He denies any fever sweats chills has a lot of suprapubic discomfort and aching which is exacerbated by palpation and movement Onset (ago): day(s) Duration: constant Location: abdomen Severity: moderate Quality: aching Relieving factors: none Exacerbating factors: palpation Associated symptoms: Reports urinary retention; Deny discharge, fevers/chills, hematuria, nausea, rash, swelling, urinary in continence, mass or vomiting Review of Systems Const: Denies: fever(s), chills, body aches, change in appetite, fatigue or malaise ENMT: Denies: throat pain, ear or mastoid pain, nasal discharge or nasal congestion Card: Denies: chest pain, edema, dyspnea on exertion or orthopnea Resp: Denies: dyspnea, productive cough or non-productive cough GI: Reports: abdominal pain; Denies: nausea or vomiting : Reports: difficulty urinating and oliguria; Denies: urinary incontinence or hematuria Skin/Breast: Denies: rash or pruritus PFSH ED PFSH: Medical History Acute bilateral obstructive uropathy Acute on chronic diastolic heart failure 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 CAD (coronary artery disease) Chronic disease anemia Detrusor dysfunction Dyslipidemia (high LDL; low HDL) Dyslipidemia (high LDL; low HDL) Encounter for care or replacement of suprapubic tube Essential hypertension Glucose intolerance Gross hematuria Hydronephrosis, bilateral Recent non-ST elevation myocardial infarction (NSTEMI) Self-catheterizes urinary bladder Urinary retention Surgical History H/O: vasectomy History of open heart surgery 20 years ago in [place] Family History Mother Dementia Social History Smoking and tobacco status: never smoked Alcohol intake: never Substance/Drug Use: never Marital status: Current occupational status: retired Current gender identity: Male Physical Exam Const: GENERAL APPEARANCE: cooperative and comfortable ORIENTATION/CONSCIOUSNESS: Yes awake, Yes oriented to person, Yes oriented to place and Yes oriented to time HENMT: COMMON NORMALS: normocephalic, atraumatic and hearing grossly normal bilaterally HEAD & SCALP: normocephalic and atraumatic Resp: COMMON NORMALS: normal respiratory effort, No retractions, No use of accessory muscles and clear to auscultation bilaterally AUSCULTATION: clear to auscultation bilaterally Cardio: COMMON NORMALS: regular rate, regular rhythm and No murmurs present (Cardio) RATE: regular rate RHYTHM: regular rhythm GI: COMMON NORMALS: Soft to palpation and No hepatosplenomegaly present AUSCULTATION: Yes normoactive bowel sounds PALPATION: Yes Soft to palpation, No Tenderness to palpation present (GI), No Guarding due to palpation present (GI) and Yes No hepatosplenomegaly present Extremity: COMMON NORMALS: normal to inspection, capillary refill normal, no clubbing, cyanosis or edema, no calf tenderness and no pedal edema Neuro: SENSORIUM/ORIENTATION: Yes oriented to person, Yes oriented to place and Yes oriented to time Skin: COMMON NORMALS: no rashes or lesions noted GENERAL SKIN EXAM: no rashes or lesions noted Course Vital Signs: Vital signs: Vital Signs Temperature 98.1 F 08/02/22 10:01 Pulse Rate 65 08/02/22 10:01 Respiratory Rate 14 08/02/22 10:01 Blood Pressure 159/76 08/02/22 10:01 Pulse Oximetry 98 08/02/22 10:01 Oxygen Delivery Me thod Room Air 08/02/22 10:01 [facility] - Male Medical Decision Making Urinary retention with obstructed suprapubic tube resolved with with replacement of the tube does appear that he has a mild cystitis cultures done we will hold the methenamine and start Macrobid. Recheck if he has any worsening symptoms follow-up with his doctor the next 2 days to recheck on the urine culture. Patient discharged home with a leg bag. Medical Records I reviewed the patient's medical records. Lab Data I reviewed the patient's lab results. 08/02/22 10:41 08/02/22 10:41 Laboratory Results WBC 8.7 10^3/uL (4.0-10.0) 08/02/22 10:41 RBC 5.34 10^6/uL (4.1-5.3) H 08/02/22 10:41 Hgb 15.1 g/dL (11.7-16.6) 08/02/22 10:41 Hct 48.2 % (42.0-52.0) 08/02/22 10:41 MCV 90.3 fl (80-94) 08/02/22 10:41 MCH 28.3 pg (28.0-34.0) 08/02/22 10:41 MCHC 31.3 g/dL (30.0-36.0) 08/02/22 10:41 RDW 14.7 % (12.1-15.1) 08/02/22 10:41 Plt Count 174 10^3/cmm (130-400) 08/02/22 10:41 MPV 10.8 fL (7.4-10.4) H 08/02/22 10:41 Neut % (Auto) 82.0 % 08/02/22 10:41 Lymph % (Auto) 7.9 % 08/02/22 10:41 [place] % (Auto) 9.4 % 08/02/22 10:41 Eos % (Auto) 0.3 % 08/02/22 10:41 Baso % (Auto) 0.2 % 08/02/22 10:41 Neut # (Auto) 7.11 10^3/uL (1.8-7.7) 08/02/22 10:41 Lymph # (Auto) 0.7 10^3/uL (0.8-4.8) L 08/02/22 10:41 [place] # (Auto) 0.8 10^3/uL (0.2-0.9) 08/02/22 10:41 Eos # (Auto) 0.0 10^3/uL (0.0-0.8) 08/02/22 10:41 Baso # (Auto) 0.0 10^3/uL (0.0-0.1) 08/02/22 10:41 Nucleated RBC % (auto) 0 % 08/02/22 10:41 Nucleated RBCs # 0.0 /100WBC 08/02/22 10:41 Sodium 138 mmol/L (136-145) 08/02/22 10:41 Potassium 3.7 mmol/L (3.5-5.1) 08/02/22 10:41 Chloride 100 mmol/L (98-107) 08/02/22 10:41 Carbon Dioxide 26 mmol/L (22-29) 08/02/22 10:41 Anion Gap 15.7 (5-19) 08/02/22 10:41 BUN 23 mg/dL (8-23) 08/02/22 10:41 Creatinine 1.4 mg/dL (0.7-1.2) H 08/02/22 10:41 GFR Calculation Not Reportable 08/02/22 10:41 Glucose 129 mg/dL (65-115) H 08/02/22 10:41 Calculated Osmolality 291 mOsm/kg (285-295) 08/02/22 10:41 Calcium 9.8 mg/dL (8.5-10.5) 08/02/22 10:41 Total Bilirubin 0.5 mg/dL (0.15-1.2) 08/02/22 10:41 AST 28 U/L (0-40) 08/02/22 10:41 ALT 26 U/L (0-41) 08/02/22 10:41 Alkaline Phosphatase 72 U/L (40-130) 08/02/22 10:41 Total Protein 6.6 g/dL (6.6-8.7) 08/02/22 10:41 Albumin 3.8 g/dL (3.5-5.2) 08/02/22 10:41 Globulin 2.8 g/dL (1.3-4.6) 08/02/22 10:41 Lipase 51 U/L (13-60) 08/02/22 10:41 Urine Color Yellow (Yellow) 08/02/22 11:06 Urine Appearance Cloudy (CLEAR) A 08/02/22 11:06 Urine pH 6 (5-7) 08/02/22 11:06 Ur Specific [place] 1.015 (1.005-1.030) 08/02/22 11:06 Urine Protein Neg (Negative) 08/02/22 11:06 Urine Glucose (UA) Norm (Normal) 08/02/22 11:06 Urine Ketones 1+ (Negative) H 08/02/22 11:06 Urine Blood 3+ (Negative) H 08/02/22 11:06 Urine Nitrate Negative (Negative) 08/02/22 11:06 Urine Bilirubin Neg (Negative) 08/02/22 11:06 Urine Urobilinogen Norm mg/dL (Negative) 08/02/22 11:06 Ur Leukocyte Esterase 2+ (Negative) H 08/02/22 11:06 Urine RBC 40-50 /hpf (0-2) H 08/02/22 11:06 Urine WBC >100 /hpf (0-5) H 08/02/22 11:06 Ur Squamous Epith Cells None /hpf (0-5) 08/02/22 11:06 Amorphous Sediment Not Reportable 08/02/22 11:06 Urine Bacteria 3+ /hpf (NONE) H 08/02/22 11:06 Urine Mucus Trace /hpf 08/02/22 11:06 Discharge Plan Discharge Patient Disposition: Home Clinical Impression: Urinary tract infection, Acute retention of urine, Obstructed suprapubic c atheter Condition: Stable Prescriptions: New Macrobid 100 mg capsule 100 mg PO BID 7 Days Qty: 14 0RF Rx Instructions: must administer with a meal/food No Action methenamine hippurate 1 gram tablet See Rx Instructions .ROUTE .COMPLEX Qty: 180 3RF Dose Instruction: TAKE 1 TABLET BY MOUTH TWICE A DAY WITH 1000MG VITAMIN C Rx Instructions: TAKE 1 TABLET BY MOUTH TWICE A DAY WITH 1000MG VITAMIN C bisacodyl [Ducodyl (bisacodyl)] 5 mg Tablet,Delayed Release (Dr/Ec) 5 mg PO DAILY PRN (Reason: Constipation) metformin 500 mg Tablet Extended Release 24 Hr 500 mg PO BID furosemide 40 mg Tablet 40 mg PO DAILY sucralfate 1 gram Tablet 1 g PO BID potassium chloride 10 mEq tablet extended release 10 meq PO DAILY Lo-Dose Aspirin 81 mg Tablet,Delayed Release (Dr/Ec) 81 mg PO DAILY Hold Instructions: Resume on 05/20/19. pantoprazole 40 mg tablet,delayed release (DR/EC) 40 mg PO DAILY metoprolol tartrate 25 mg tablet 25 mg PO BID atorvastatin [Lipitor] 80 mg tablet 80 mg PO DAILY ascorbic acid (vitamin C) [Vitamin C] 1,000 mg Tablet 500 mg PO DAILY Discharge Orders: Discharge ED (Routine); Ordered 08/02/22 Ordered By: Noble Hoffman Referrals: Kraig Melo, [Primary Care Provider] - Discharge Diet: Usual diet Discharge Activity: Increase activity as tolerated Patient Instructions: Opioid Safety, Pain Management Activity Restrictions/Additional Instructions: You are seen today for an obstructed suprapubic catheter. Once replaced the ladder was able to drain. There is signs of infection. Recommend you hold methenamine use the Macrobid given to you today until the culture results are available follow-up with your doctor on the culture results in 3 to 5 days. Return if you have further problems. Coding Level of Care Code ED Supervisor [employer] for Rebeka Chowdhury
[2022-08-02 10:51] LABS: Basophils % 0.2 %; Eosinophils % 0.3 %; Hematocrit 48.2 % (42.0-52.0); Hemoglobin 15.1 g/dL (11.7-16.6); Lymphocytes # 0.7 10^3/uL (0.8-4.8); Lymphocytes % 7.9 %; Mean Corpuscular HGB Conc 31.3 g/dL (30.0-36.0); Mean Corpuscular Hemoglobin 28.3 pg (28.0-34.0); Mean Corpuscular Volume 90.3 fl (80-94); Mean Platelet Volume 10.8 fL (7.4-10.4); Monocytes # 0.8 10^3/uL (0.2-0.9); Monocytes % 9.4 %; Neutrophils # 7.11 10^3/uL (1.8-7.7); Nucleated Red Blood Cells % 0 %; Platelet Count 174 10^3/cmm (130-400); Red Blood Count 5.34 10^6/uL (4.1-5.3); Red Cell Distribution Width 14.7 % (12.1-15.1); White Blood Count 8.7 10^3/uL (4.0-10.0)
[2022-08-02 11:13] LABS: Alanine Aminotransferase 26 U/L (0-41); Albumin Level 3.8 g/dL (3.5-5.2); Alkaline Phosphatase 72 U/L (40-130); Anion Gap 15.7 (5-19); Aspartate Amino Transferase 28 U/L (0-40); Blood Urea Nitrogen 23 mg/dL (8-23); Calcium 9.8 mg/dL (8.5-10.5); Carbon Dioxide 26 mmol/L (22-29); Chloride 100 mmol/L (98-107); Globulin 2.8 g/dL (1.3-4.6); Glucose 129 mg/dL (65-115); Lipase 51 U/L (13-60); Osmolality Calculated 291 mOsm/kg (285-295); Potassium 3.7 mmol/L (3.5-5.1); Sodium 138 mmol/L (136-145); Total Bilirubin 0.5 mg/dL (0.15-1.2); Total Protein 6.6 g/dL (6.6-8.7)
[2022-08-02 11:40] LABS: Add Urine Microscopic? YES; Bilirubin Urine Neg (Negative); Blood Urine 3+ (Negative); Glucose Urine UA Norm (Normal); Ketones Urine 1+ (Negative); Leukocyte Esterase Urine 2+ (Negative); Nitrate Urine Negative (Negative); Protein Urine Neg (Negative); Specific Gravity, Urine 1.015 (1.005-1.030); Urine Appearance Cloudy (CLEAR); Urine Color Yellow (Yellow); Urobilinogen Urine Norm (Negative); pH Urine 6 (5-7)
[2022-08-02 11:41] LABS: Add Urine Culture? Yes; Bacteria Urine 3+ /hpf; Mucus Urine TRACE /hpf; RBC Urine 40-50 /hpf (0-2); WBC Urine >100 /hpf (0-5)
== END 2022-08-02 12:19 | disposition home or self-care (01) ==
PROVIDERS: Emergency Provider Family Medicine; PCP Electrodiagnostic Medicine
DX: N39.0 Urinary tract infection, site not specified (principal); R33.9 Retention of urine, unspecified; T83.091A Other mechanical complication of indwelling urethral catheter, initial encounter; Y84.6 Urinary catheterization as the cause of abnormal reaction of the patient, or of later complication, without mention of misadventure at the time of the procedure
CPT/HCPCS: 80053; 81001; 83690; 85025; 87077; 87086; 87186; 99283

== ENCOUNTER 2022-09-27 11:56 | Outpatient (CLI) | payer MEDICARE, SELFPAY ==
--- NOTE | 2022-09-27 12:24 | US_ITS ---
WS: [id number] RENAL ULTRASOUND HISTORY: OBSTRUCTIVE UROPATHY COMPARISON: 03/13/2019, CT 03/28/2019 TECHNIQUE: 2-D and color Doppler imaging of the kidney submitted. Right kidney: 10.7 cm x 3.4 cm x 6.2 cm. Cortex: 1.1 cm Normal size kidney. Cortical cyst mid kidney measures 1.4 x 1.3 x 1.7 cm. No residual hydronephrosis. Left kidney: 10.5 cm x 4.0 cm x 5.6 cm. Cortex: 1.3 cm Normal size kidney. No residual hydronephrosis. No cortical thinning. No solid mass. Aorta: Normal. Urinary Bladder: Torres catheter present in a nondistended urinary bladder. There is marked enlargement and heterogeneity of the prostate gland. Prostate measures at least 6.5 x 7.1 x 8.4 cm. US/US renal BI* [id number] IMPRESSION: 1. Normal size kidneys with resolved hydronephrosis since 03/13/2019. 2. Stable simple cyst RIGHT kidney. 3. Torres catheter present in a nondistended urinary bladder. 4. Marked prostate enlargement.
== END 2022-09-27 11:57 | disposition home or self-care (01) ==
PROVIDERS: PCP Electrodiagnostic Medicine; Visit Provider Nurse Practitioner Family
DX: N13.9 Obstructive and reflux uropathy, unspecified (principal); N28.1 Cyst of kidney, acquired; Z96.0 Presence of urogenital implants; N40.0 Benign prostatic hyperplasia without lower urinary tract symptoms
CPT/HCPCS: 76770

== ENCOUNTER 2023-11-22 14:53 | Outpatient (CLI) | payer MEDICARE, SELFPAY ==
--- NOTE | 2023-11-22 14:54 | US_ITS ---
WS: [id number] ULTRASOUND RENAL TECHNIQUE: Ultrasound examination of both kidneys. CLINICAL INFORMATION: RENAL CYST COMPARISON: 09/27/2022 FINDINGS: RIGHT: Simple RIGHT renal cyst 2.1 x 1.8 x 2.0 cm Right kidney is normal in size and appearance. Echogenicity: Normal. Cortical thickness: 0.9 cm; Normal. Hydronephrosis: None. Perinephric fluid: None. Right kidney measures: 9.9 cm x 5.3 cm x 5.7 cm. LEFT: Left kidney is normal in size and appearance. Echogenicity: Normal. Cortical thickness: 1.0 cm; Normal. Hydronephrosis: None. Perinephric fluid: None. Left kidney measures: 10.2 cm x 4.4 cm x 5.3 cm. Normal visualized aorta. Suprapubic catheter. Bladder is decompressed. US/US renal BI* [id number] IMPRESSION: 1. No hydronephrosis in either kidney. 2. Simple RIGHT renal cyst measuring 2.1 x 1.8 x 2.0 cm appears stable 3. Suprapubic catheter.
== END 2023-11-22 14:54 | disposition home or self-care (01) ==
LOC: RAD 14:53
PROVIDERS: PCP Electrodiagnostic Medicine; Visit Provider Urology
DX: R33.8 Other retention of urine (principal); N28.1 Cyst of kidney, acquired; Z96.0 Presence of urogenital implants
CPT/HCPCS: 76770

== ENCOUNTER 2024-01-15 11:44 | Outpatient (CLI) | payer MEDICARE, SELFPAY ==
--- NOTE | 2024-01-15 11:49 | XR_ITS ---
WS: [id number] Exam: XR [id number] Date/Time of Exam: 01/15/2024 12:08 PM Reason For Exam: OTHER RETENTION OF URINE/RENAL CYST No bowel obstruction or free air. No sign of organ enlargement. Bony structures are intact. Surgical clips in the upper LEFT quadrant of the abdomen as well as the LEFT region XR/XR [id number] IMPRESSION: 1. No acute finding in the abdomen or pelvis.
== END 2024-01-15 11:45 | disposition home or self-care (01) ==
PROVIDERS: PCP Electrodiagnostic Medicine; Visit Provider Urology
DX: R33.8 Other retention of urine (principal); N28.1 Cyst of kidney, acquired
CPT/HCPCS: 74018

== ENCOUNTER → 2024-02-26 13:51 | Outpatient (BNVA) | payer MEDICARE, SELFPAY | PROVIDERS: PCP Electrodiagnostic Medicine; Referring Provider Electrodiagnostic Medicine; Visit Provider Nurse Practitioner Family | DX: L21.8 Other seborrheic dermatitis (principal); L73.8 Other specified follicular disorders; L82.1 Other seborrheic keratosis; D22.0 Melanocytic nevi of lip; L57.8 Other skin changes due to chronic exposure to nonionizing radiation; D48.5 Neoplasm of uncertain behavior of skin | CPT/HCPCS: 11102; 99204 ==

== ENCOUNTER → 2024-03-26 07:48 | Outpatient (BNVA) | payer MEDICARE, SELFPAY | PROVIDERS: PCP Electrodiagnostic Medicine; Visit Provider Dermatology | DX: C44.41 Basal cell carcinoma of skin of scalp and neck (principal) | CPT/HCPCS: 17311 ==

== ENCOUNTER → 2024-04-04 10:35 | Outpatient (BNVA) | payer MEDICARE, SELFPAY | PROVIDERS: PCP Electrodiagnostic Medicine; Visit Provider Dermatology | DX: C44.41 Basal cell carcinoma of skin of scalp and neck (principal) | CPT/HCPCS: 15275; Q4186 ==

== ENCOUNTER → 2024-04-10 12:28 | Outpatient (BNVA) | payer MEDICARE, SELFPAY | PROVIDERS: PCP Electrodiagnostic Medicine; Visit Provider Dermatology | DX: C44.41 Basal cell carcinoma of skin of scalp and neck (principal) | CPT/HCPCS: 15275; Q4186 ==

== ENCOUNTER → 2024-04-19 08:55 | Outpatient (BNVA) | payer MEDICARE, SELFPAY | PROVIDERS: PCP Electrodiagnostic Medicine; Visit Provider Dermatology | DX: C44.41 Basal cell carcinoma of skin of scalp and neck (principal) | CPT/HCPCS: 15275 ==

== ENCOUNTER → 2024-04-25 11:13 | Outpatient (BNVA) | payer MEDICARE, SELFPAY | PROVIDERS: PCP Electrodiagnostic Medicine; Visit Provider Dermatology | DX: C44.41 Basal cell carcinoma of skin of scalp and neck (principal) | CPT/HCPCS: 15275 ==

== ENCOUNTER → 2024-05-01 11:34 | Outpatient (BNVA) | payer MEDICARE, SELFPAY | PROVIDERS: PCP Electrodiagnostic Medicine; Visit Provider Dermatology | DX: C44.41 Basal cell carcinoma of skin of scalp and neck (principal) | CPT/HCPCS: 15275; Q4186 ==

== ENCOUNTER → 2024-05-13 14:08 | Outpatient (BNVA) | payer MEDICARE, SELFPAY | PROVIDERS: PCP Electrodiagnostic Medicine; Visit Provider Dermatology | DX: C44.41 Basal cell carcinoma of skin of scalp and neck (principal) | CPT/HCPCS: 15275; Q4186 ==

== ENCOUNTER → 2024-05-20 14:11 | Outpatient (BNVA) | payer MEDICARE, SELFPAY | PROVIDERS: PCP Electrodiagnostic Medicine; Visit Provider Dermatology | DX: C44.41 Basal cell carcinoma of skin of scalp and neck (principal) | CPT/HCPCS: 15275; Q4186 ==

== ENCOUNTER → 2024-05-27 14:23 | Outpatient (BNVA) | payer MEDICARE, SELFPAY | PROVIDERS: PCP Electrodiagnostic Medicine; Visit Provider Dermatology | DX: Z48.817 Encounter for surgical aftercare following surgery on the skin and subcutaneous tissue (principal) | CPT/HCPCS: 99212 ==

== ENCOUNTER → 2024-06-13 12:40 | Outpatient (BNVA) | payer MEDICARE, SELFPAY | PROVIDERS: PCP Electrodiagnostic Medicine; Visit Provider Dermatology | DX: Z48.817 Encounter for surgical aftercare following surgery on the skin and subcutaneous tissue (principal) | CPT/HCPCS: 99212 ==

== ENCOUNTER → 2024-07-08 13:15 | Outpatient (BNVA) | payer MEDICARE, SELFPAY | PROVIDERS: PCP Electrodiagnostic Medicine; Visit Provider Dermatology | DX: L82.1 Other seborrheic keratosis (principal); L57.8 Other skin changes due to chronic exposure to nonionizing radiation; Z08 Encounter for follow-up examination after completed treatment for malignant neoplasm; Z85.828 Personal history of other malignant neoplasm of skin | CPT/HCPCS: 99213 ==

== ENCOUNTER → 2024-10-21 13:19 | Outpatient (BNVA) | payer MEDICARE, SELFPAY | PROVIDERS: PCP Electrodiagnostic Medicine; Visit Provider Nurse Practitioner Family | DX: L82.1 Other seborrheic keratosis (principal); L57.8 Other skin changes due to chronic exposure to nonionizing radiation; D18.01 Hemangioma of skin and subcutaneous tissue; Z08 Encounter for follow-up examination after completed treatment for malignant neoplasm; Z85.828 Personal history of other malignant neoplasm of skin; D48.5 Neoplasm of uncertain behavior of skin | CPT/HCPCS: 11102; 99213 ==

== ENCOUNTER → 2025-01-08 14:20 | Outpatient (BNVA) | payer MEDICARE, SELFPAY | PROVIDERS: PCP Electrodiagnostic Medicine; Visit Provider Nurse Practitioner Family | DX: L21.8 Other seborrheic dermatitis (principal); L82.1 Other seborrheic keratosis; D18.01 Hemangioma of skin and subcutaneous tissue; L57.8 Other skin changes due to chronic exposure to nonionizing radiation; Z08 Encounter for follow-up examination after completed treatment for malignant neoplasm; Z85.828 Personal history of other malignant neoplasm of skin | CPT/HCPCS: 99214 ==